=== PATIENT | female | born 2000 | race Caucasian/White ===

== ENCOUNTER 2023-04-29 09:24 | Emergency (ER) | payer BC, SELFPAY ==
[2023-04-29 09:29] VITALS: BP 112/83; PULSE 79; RESP 18; TEMP 36.8; O2SAT 97; BMI 28.3
--- NOTE | 2023-04-29 09:38 | PC.NURSE ---
RAISED RED RASH CIRCUMFERENCE OF MOUTH THAT STARTED 3 DAYS AGO. RASH IS RED AND RAISED. PT STATES TODAY THAT BILATERAL EAR HAVE STARTED ITCHING . PT STATED HAS BEEN USING BENADRYL AND TOPICAL ANT-ITCH CREAM WITH NO RELIEF. PT STATES HAS HAD SIMILAR ISSUES LIKE THIS IN PAST.
--- NOTE | 2023-04-29 09:47 | ED.SKABFB1 ---
HPI - Skin/Abscess/Foreign Bdy General Chief complaint: Skin/Abscess/Foreign Body Stated complaint: RASH Time Seen by Provider: 04/29/23 09:40 Source: patient Mode of arrival: walk-in Limitations: no limitations History of Present Illness HPI narrative: patient is here with a rash involving her lips and area below the lips in the mentum of the chin and low forehead area and now two areas starting in her ears. She says it is extremely itchy and rowe. She's tried antibiotic ointments and other hvub-apj-oisxusp preparations is not getting any better. She is not using a skin care products or topical agents to this area. She does have a nose ring but she's had that in several causing problems. She has no known history of MRSA she's not ill and is not running a fever. Does not have any other rash involving the rest of her trunk torso or extremities. Does not have a lesions inside her mouth. There is no swelling or erythema of the conjunctiva. She is otherwise well and not on any new medications. Related Data Allergies Allergy/AdvReac Type Severity Reaction Status Date / Time No Known Drug Allergies Allergy Verified 04/29/23 09:29 Exam Narrative Exam Narrative: problem focused examination shows mildly erythematous inflammatory response of her upper and lower lip and patchy areas of erythema just below on the mentum of the chin there is no evidence of impetigo or viral exanthems or vesicles. There is no linear streaking. The tragus of the ears has two small areas of erythema but it's not really cellulitic or tender. The rest the trunk torso and skin is completely normal. The oral cavity does not have any lesions or inflammation or symptoms intraorally. Hands are free of any rash. Constitutional Vital Signs, click to edit/add: Last Vital Signs Temp 98.3 F 04/29/23 09:29 Pulse 79 04/29/23 09:29 Resp 18 04/29/23 09:29 BP 112/83 H 04/29/23 09:29 Pulse Ox 97 04/29/23 09:29 O2 Del Method Room Air 04/29/23 09:29 Course Vital Signs Vital signs: Vital Signs Temperature 98.3 F 04/29/23 09:29 Pulse Rate 79 04/29/23 09:29 Respiratory Rate 18 04/29/23 09:29 Blood Pressure 112/83 H 04/29/23 09:29 Pulse Oximetry 97 04/29/23 09:29 Oxygen Delivery Method Room Air 04/29/23 09:29 Temperature 98.3 F 04/29/23 09:29 Pulse Rate 79 04/29/23 09:29 Respiratory Rate 18 04/29/23 09:29 Blood Pressure 112/83 H 04/29/23 09:29 Pulse Oximetry 97 04/29/23 09:29 Oxygen Delivery Method Room Air 04/29/23 09:29 MDM - Skin/Abscess/Foreign Bdy MDM Narrative Medical decision making narrative: this somewhat of a perplexing rash does not appear to be bacterial or viral in etiology. Contact dermatitis would be most likely but she's not used anything that may precipitate that. Nonetheless I am recommending a steroid cream cold compresses and a Medrol pack. She is planning on following up with her primary care doctor Discharge Plan Discharge Chief Complaint: Skin/Abscess/Foreign Body Clinical Impression: Dermatitis Time of Disposition Decision: 09:50 Instructions: Dermatitis (ED) Additional Instructions: cold compresses/Medrol Christian/betamethasone to the skin rash Stand Alone Forms: Portal Instructions Referrals: Lauren Doll MD [Primary Care Provider] - 1 week
== END 2023-04-29 09:58 | disposition home or self-care (01) ==
PROVIDERS: Emergency Provider Emergency Medicine Emergency Medical Services; PCP Family Medicine
DX: L30.9 Dermatitis, unspecified (principal)
CPT/HCPCS: 99283

== ENCOUNTER 2023-07-11 16:25 | Outpatient (RCR) | payer BC, SELFPAY | END 2023-09-05 16:08 | disposition home or self-care (01) | LOC: PT 16:25 | PROVIDERS: PCP Family Medicine; Visit Provider Family Medicine | DX: M25.512 Pain in left shoulder (principal) | CPT/HCPCS: 97110; 97162 ==

== ENCOUNTER 2023-08-12 11:05 | Outpatient (OUT) | payer BC, SELFPAY ==
[2023-08-13 08:12] LABS: HIV Ab/p24 Ag Screen Non Reactive (Non Reactive)
[2023-08-13 10:11] LABS: Rapid Plasma Reagin, Quant Non Reactive titer (NonRea<1:1)
[2023-08-15 19:11] LABS: HBsAg Screen Negative (Negative); HCV Ab Reactive (Non Reactive); Hep A Ab, IgM Negative (Negative); Hep B Core Ab, IgM Positive (Negative)
== END 2023-08-12 11:06 | disposition home or self-care (01) ==
LOC: LAB 11:05
PROVIDERS: PCP Family Medicine; Visit Provider Obstetrics & Gynecology
DX: Z20.2 Contact with and (suspected) exposure to infections with a predominantly sexual mode of transmission (principal)
CPT/HCPCS: 36415; 80074; 86592; 86695; 86696; 87389; 87522

== ENCOUNTER 2023-09-23 21:59 | Emergency (ER) | payer BC, SELFPAY ==
[2023-09-23] VITALS (7 sets, daily range): BP systolic 122; BP diastolic 92; PULSE 89–114; RESP 10–22; TEMP 36.6; O2SAT 96–100; BMI 30.3
--- NOTE | 2023-09-23 22:04 | ECG_ITS ---
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
--- NOTE | 2023-09-23 22:04 | ED.OVERDOSE1 ---
HPI - Overdose General Chief Complaint: Overdose Stated Complaint: OVERDOSE Time Seen by Provider: 09/23/23 22:04 Source: patient and other (EMS) Source comment: . Mode of arrival: ambulance Limitations: no limitations History of Present Illness HPI Narrative: This 23-year-old female with a history of substance abuse is brought emergency Department from home by EMS. EMS was called by the patient's boyfriend after she became unresponsive. The patient was found to have agonal respirations and was given 8 mg of intranasal Narcan with clinical improvement. She had an episode of vomiting prior to arrival. Upon arrival she is awake, alert, admits that she has been using heroin and/or fentanyl. She states that her boyfriend does not know that she is using drugs. She does have a history of substance abuse but states that she has never used fentanyl her heroin in the past. She was formally using methamphetamine. She denies the possibility of . She denies any chest pain or shortness of breath. She states that she is nauseated and having abdominal cramps. She denies that this was a suicide attempt. Related Data Allergies Allergy/AdvReac Type Severity Reaction Status Date / Time No Known Drug Allergies Allergy Verified 04/29/23 09:29 Review of Systems ROS Status of ROS 10 or more systems reviewed and unremarkable except as noted in history and below Exam Narrative Exam Narrative: Nurses note and vital signs reviewed and patient is not hypoxic. She is afebrile, mildly tachycardic with a pulse of 102, she is not hypoxic with pulse ox 96 percent on room air General: , Alert, oriented to being in the hospital, no respiratory distress Skin: Warm, dry, no pallor noted. There is no rash noted. Head: Normocephalic, atraumatic Eye: Normal conjunctiva, no drainage, EOMI. PERRL. Pupils are 4 mm equal and reactive, vision is grossly intact Ears, Nose, Mouth, and Throat: oral mucosa is moist. Cardiovascular: Regular Rate and Rhythm s1S2, no murmurs, rubs or gallops, pulses are brisk and equal bilaterally Respiratory: Patient is in no distress, no accessory muscle use, lungs are clear to auscultation, no wheezing, rales or rhonchi Back: non-tender, no CVA tenderness bilaterally to percussion. GI: Normal bowel sounds, no tenderness to palpation, no masses appreciated. No rebound, guarding, or rigidity noted. Musculoskeletal: The patient has no evidence of calf tenderness, no pitting edema, symmetrical pulses noted bilaterally Neurological: A&O x4, normal speech Psychiatric: Cooperative, denies SI, admits to recent use of heroin or fentanyl Constitutional Vital Signs, click to edit/add: Last Vital Signs Temp 98 F 09/23/23 21:59 Pulse 105 H 09/23/23 22:50 Resp 18 09/23/23 22:50 BP 122/92 H 09/23/23 21:59 Pulse Ox 99 09/23/23 22:50 O2 Del Method Room Air 09/23/23 21:59 Course Vital Signs Vital signs: Vital Signs Temperature 98 F 09/23/23 21:59 Pulse Rate 102 H 09/23/23 21:59 Respiratory Rate 22 09/23/23 21:59 Blood Pressure 122/92 H 09/23/23 21:59 Pulse Oximetry 96 09/23/23 21:59 Oxygen Delivery Method Room Air 09/23/23 21:59 Temperature 98 F 09/23/23 21:59 Pulse Rate 105 H 09/23/23 22:50 Respiratory Rate 18 09/23/23 22:50 Blood Pressure 122/92 H 09/23/23 21:59 Pulse Oximetry 99 09/23/23 22:50 Oxygen Delivery Method Room Air 09/23/23 21:59 MDM - Overdose MDM Narrative Medical decision making narrative: This 23-year-old female is brought to the emergency department after she accidentally overdosed at home. EMS was called after she was found unresponsive by her boyfriend. She had agonal respirations on their arrival and was given 8 mg of Narcan with clinical improvement. She had one episode of vomiting prior to arrival. Upon arrival she was awake, alert, oriented admitted that she had used heroin and/or fentanyl. She states she does not typically use this but has a history of methamphetamine use. EKG done upon arrival was a sinus rhythm at 108 beat per minute. She was given IV fluids and Zofran. Routine labs are reviewed. Her test was negative. She has a normal white count and hemoglobin. She does have a mild elevation in her liver function tests. She is not having any abdominal pain. This may be related to gallbladder issues or history of drug use. She denies that she has never been an IV drug user. She was monitored on the stator tester with no ectopy or hypoxia. She has been monitored for a period of time and has not had any episodes of decreased consciousness. Her family is currently in the room with her. I discussed her plan to stay clean with her and she plans to follow-up with [facility] in [place] where she had established a relationship in the past. She will be discharged with her family and a prescription for Narcan. I encouraged her to try to avoid using narcotics in the future as it is unclear what they have been laced with. She has flatly denied that this was a suicide attempt. She feels comfortable being discharged home with her boyfriend at this time. We did find a box of Narcan and sent it home with the patient to have if she should accidently overdose in the future. Lab Data Labs: Lab Results 09/23/23 Range/Units 22:25 WBC 7.3 (4.0-11.0) 10^3/uL RBC 4.21 (4.20-5.40) 10^6/uL Hgb 13.1 (12.0-16.0) g/dL Hct 38.5 (36.0-48.0) % MCV 91.4 (81.0-99.0) fL MCH 31.1 (26.7-34.0) pg MCHC 34.0 (29.9-35.2) g/dL RDW 12.1 (11.0-15.0) % Plt Count 271 (150-450) 10^3/uL MPV 10.2 (9.5-13.5) fL Neut % (Auto) 47.4 (43.0-75.0) % Lymph % (Auto) 45.9 (20.5-60.0) % [place] % (Auto) 3.7 (1.7-12.0) % Eos % (Auto) 0.8 L (0.9-7.0) % Baso % (Auto) 0.3 (0.2-2.0) % Neut # (Auto) 3.5 (1.4-6.5) 10^3/uL Lymph # (Auto) 3.4 (1.2-3.8) 10^3/uL [place] # (Auto) 0.3 (0.3-0.8) 10^3/uL Eos # (Auto) 0.1 (0.0-0.7) 10^3/uL Baso # (Auto) 0.0 (0.0-0.1) 10^3/uL Abs Immat Gran (auto) 0.14 H (0.00-0.03) 10^3/uL Imm/Tot Granulo (auto) 1.9 H (0.0-0.5) % Sodium 139 (136-145) mmol/L Potassium 3.2 L (3.5-5.1) mmol/L Chloride 102 (98-107) mmol/L Carbon Dioxide 26.7 (21.0-32.0) mmol/L Anion Gap 13.5 BUN 18.0 (7.0-18.0) mg/dL Creatinine 0.89 (0.55-1.02) mg/dL Est GFR ( Amer) >60 (>=60) Est GFR (Non-Af Amer) >60 (>=60) BUN/Creatinine Ratio 20.2 Glucose 137 H (74-106) mg/dL Calcium 8.8 (8.5-10.1) mg/dL Total Bilirubin 0.2 (0.2-1.0) mg/dL AST 126 H (15-37) U/L ALT 155 H (14-59) U/L Alkaline Phosphatase 50 (46-116) U/L Total Protein 7.6 (6.4-8.2) g/dL Albumin 3.8 (3.4-5.0) g/dL Globulin 3.8 g/dL Albumin/Globulin Ratio 1.0 Serum HCG, Qual Negative (NEGATIVE) ECG Data Attestation: I personally reviewed and interpreted this ECG as follows: (Sinus tachycardia at 108 beats for minute, right axis deviation, normal intervals, no acute ST segment elevation or T-wave inversion) Discharge Plan Discharge Chief Complaint: Overdose Clinical Impression: Accidental overdose, Elevated liver function tests Patient Disposition: Home, Self-Care Time of Disposition Decision: 23:41 Condition: Good Instructions: Adult Overdose (ED) Additional Instructions: Please fill your prescription for Narcan and have available for your friends or family to use if he should accidentally overdosed in the future. Follow-up for outpatient detox/drug rehab. Return to the emergency department as needed. Stand Alone Forms: Portal Instructions Referrals: Lauren Doll MD [Primary Care Provider] - 1 week Discharge Date/Time: 09/24/23 00:21
[2023-09-23 22:32] LABS: Basophils Percent Auto 0.3 % (0.2-2.0); Eosinophils Absolute Auto 0.1 10^3/uL (0.0-0.7); Eosinophils Percent Auto 0.8 % (0.9-7.0); Hematocrit 38.5 % (36.0-48.0); Hemoglobin 13.1 g/dL (12.0-16.0); Immature Granulocytes Abs Auto 0.14 10^3/uL (0.00-0.03); Immature Granulocytes Pct Auto 1.9 % (0.0-0.5); Lymphocytes Absolute Auto 3.4 10^3/uL (1.2-3.8); Lymphocytes Percent Auto 45.9 % (20.5-60.0); Mean Corpuscular Hemoglobin 31.1 pg (26.7-34.0); Mean Corpuscular Volume 91.4 fL (81.0-99.0); Mean Platelet Volume 10.2 fL (9.5-13.5); Monocytes Absolute Auto 0.3 10^3/uL (0.3-0.8); Monocytes Percent Auto 3.7 % (1.7-12.0); Neutrophils Absolute Auto 3.5 10^3/uL (1.4-6.5); Neutrophils Percent Auto 47.4 % (43.0-75.0); Platelet Count 271 10^3/uL (150-450); Red Blood Count 4.21 10^6/uL (4.20-5.40); Red Cell Distribution Width 12.1 % (11.0-15.0); White Blood Count 7.3 10^3/uL (4.0-11.0)
[2023-09-23] MEDS: ONDANSETRON PF 4 MG/2 ML VIAL IV (22:33)
[2023-09-23] MEDS: 0.9 % SODIUM CHLORIDE 1,000 ML 500 ML IV (22:33)
[2023-09-23 22:40] LABS: HCG Qualitative NEGATIVE (NEGATIVE)
[2023-09-23 22:45] LABS: Alanine Aminotransferase 155 U/L (14-59); Albumin Level 3.8 g/dL (3.4-5.0); Alkaline Phosphatase 50 U/L (46-116); Anion Gap 13.5; Aspartate Amino Transferase 126 U/L (15-37); BUN Creatinine Ratio 20.2; Bilirubin Total 0.2 mg/dL (0.2-1.0); Calcium 8.8 mg/dL (8.5-10.1); Carbon Dioxide 26.7 mmol/L (21.0-32.0); Chloride 102 mmol/L (98-107); Estimated GFR (African America >60 (>=60); Estimated GFR (Non-African Ame >60 (>=60); Globulin 3.8 g/dL; Glucose 137 mg/dL (74-106); Potassium 3.2 mmol/L (3.5-5.1); Sodium 139 mmol/L (136-145); Total Protein 7.6 g/dL (6.4-8.2)
== END 2023-09-24 00:21 | disposition home or self-care (01) ==
PROVIDERS: Emergency Provider Emergency Medicine; PCP Family Medicine
DX: T40.1X1A Poisoning by heroin, accidental (unintentional), initial encounter (principal); T40.411A Poisoning by fentanyl or fentanyl analogs, accidental (unintentional), initial encounter; R79.89 Other specified abnormal findings of blood chemistry
CPT/HCPCS: 36415; 80053; 80307; 84703; 85025; 93005; 96361; 96374; 99284

== ENCOUNTER 2023-10-28 07:00 | Outpatient (OUT) | payer BC, SELFPAY ==
--- OUTSIDE RECORDS SUMMARY | 2023-10-28 07:06 | XMS_ITS | CCD ---
Author Name Unknown Address [address] [place] [address] [address] [place] [address] Organization [facility] Care Team Providers Care Collar Stay Fuser Tender Name Role Phone PHYSICIAN, DEFAULT Unavailable Unavailable PHYSICIAN, DEFAULT Unavailable Unavailable ALICE, DR LAUREN Sweet Admitting Unavailable JENKINS, DR LAUREN Sweet Attending Unavailable JENKINS, DR LAUREN Sweet Primary Care Unavailable WEST, DR ABDULAZIZ Valdez Consulting Unavailable JENKINS, DR LAUREN Sweet Consulting Unavailable MISC, DR SANCHEZ Primary Care Unavailable MARKER, DR ROSALES Admitting Unavailable MARKER, DR ROSALES Attending Unavailable MARKER, DR ROSALES Consulting Unavailable ISSAC, AYDEE Admitting Unavailable ISSAC, AYDEE Attending Unavailable JENKINS, DR LAUREN Sweet Primary Care Unavailable ERLIN, DR SILVERMAN Admitting Unavailable ERLIN, DR SILVERMAN Attending Unavailable MISC, DR SANCHEZ Primary Care Unavailable ERLIN, DR SILVERMAN Consulting Unavailable ERLIN, DR SILVERMAN Admitting Unavailable ERLIN, DR SILVERMAN Attending Unavailable MISC, DR SANCHEZ Primary Care Unavailable ERLIN, DR SILVERMAN Consulting Unavailable BROWN, ABDULAZIZ Consulting Unavailable Becky Leslie Unavailable Lauren Jenkins Unavailable LAUREN JENKINS Referring Unavailable Allergies Allergy Classification Reported Allergen(s) Allergy Type Date of Onset Reaction(s) Facility (1 source) Amoxicillin Drug Allergy [facility] Repository (9 sources) ceftibuten Drug Allergy [address] [facility] Repository (9 sources) ceftibuten Drug Allergy Unknown [facility] Repository (1 source) Allergies Reconciled Propensity to adverse reactions Unknown [facility] Other (4 sources) Medicinal cephalosporin and acting as antibacterial agent (FN) Drug allergy 0 Unknown [facility] Other Medications Current Medications Medication Drug Class(es) Dates Sig (Normalized) Sig (Original) methylPREDNISolone 4 mg oral tablet (8 sources) Corticosteroid Start: 07-01-2022 take 4 mg by mouth once daily valACYclovir 500 mg oral tablet (1 source) Herpesvirus Nucleoside Analog DNA Polymerase Inhibitor, Herpes Simplex Virus Nucleoside Analog DNA Polymerase Inhibitor, Herpes Zoster Virus Nucleoside Analog DNA Polymerase Inhibitor take 1 tablet by mouth every twenty-four hours Valtrex 500 MG 1 tablet once a day Active 24 hr venlafaxine 37.5 mg extended release oral capsule (6 sources) Serotonin and Norepinephrine Reuptake Inhibitor Venlafaxine HCl ER 37.5 MG TAKE 1 CAPSULE BY MOUTH EVERY DAY WITH FOOD FOR 90 DAYS for 90 Active Completed/Discontinued Medications Medication Drug Class(es) Dates Sig (Normalized) Sig (Original) benzonatate 200 mg oral capsule (1 source) Non-narcotic Antitussive take 1 capsule by mouth every eight hours Benzonatate 200 MG 1 capsule Orally Three times a day Not-Taking tiZANidine 4 mg oral tablet (1 source) Central alpha-2 Adrenergic Agonist take 1 tablet by mouth every eight hours tiZANidine HCl 4 MG 1 tablet as needed Orally Three times a day Not-Taking Problems Active Problems Problem Classification Problem Date Documented Date Episodic/Chronic Allergic reactions (1 source) Allergic contact dermatitis, unspecified cause Episodic Chronic obstructive pulmonary disease and bronchiectasis (2 sources) Bronchitis; Translations: [Bronchitis, not specified as acute or chronic] Episodic Contraceptive and procreative management (4 sources) Initiation of transdermal contraception; Translations: [Encounter for initial prescription of implantable subdermal contraceptive] Episodic Genitourinary symptoms and ill-defined conditions (4 sources) Dysuria; Translations: [Dysuria] Episodic Hepatitis (2 sources) Viral hepatitis C; Translations: [Unspecified viral hepatitis C without hepatic coma] Episodic Inflammatory diseases of female pelvic organs (2 sources) Cervicitis and endocervicitis; Translations: [Inflammatory disease of cervix uteri] Episodic Mood disorders (14 sources) Recurrent major depressive episodes, moderate ; Translations: [Major depressive disorder, recurrent, moderate] Chronic Other complications of (2 sources) High risk ; Translations: [Supervision of high risk , unspecified, third trimester] Episodic Other complications of (2 sources) Other specified related conditions, third trimester; Translations: [Other specified related conditions, third trimester] Episodic Other female genital disorders (4 sources) Unspecified dyspareunia; Translations: [UNSPECIFIED DYSPAREUNIA] Onset: 07-12-2021 Chronic Other female genital disorders (2 sources) Dyspareunia; Translations: [Unspecified dyspareunia] Chronic Other female genital disorders (2 sources) Noninflammatory disorder of the vagina; Translations: [Other specified noninflammatory disorders of vagina] Episodic Other female genital disorders (2 sources) Disorder of female genital organs; Translations: [Unspecified condition associated with female genital organs and menstrual cycle] Episodic Other liver diseases (8 sources) Lesion of liver; Translations: [Liver disease, unspecified] Chronic Other nervous system disorders (7 sources) Chronic pain; Translations: [Other chronic pain] Chronic Other nervous system disorders (1 source) Other chronic pain Chronic Other non-traumatic joint disorders (2 sources) Pain in left shoulder Episodic Other nutritional; endocrine; and metabolic disorders (8 sources) Body mass index 30+ - obesity; Translations: [Body mass index (BMI) 32.0-32.9, adult] Chronic Other nutritional; endocrine; and metabolic disorders (2 sources) Body mass index 25-29 - overweight; Translations: [Body mass index (BMI) 26.0-26.9, adult] Episodic Other and delivery including normal (14 sources) ; Translations: [ state, incidental] Episodic Other screening for suspected conditions (not mental disorders or infectious disease) (10 sources) Thyroid function tests abnormal; Translations: [Abnormal results of thyroid function studies] Episodic Other upper respiratory disease (8 sources) Sinusitis; Translations: [Allergic rhinitis, unspecified] Chronic Other upper respiratory disease (1 source) Allergic rhinitis, unspecified Onset: 07-01-2022 Resolved: 07-01-2022 Chronic Residual codes; unclassified (2 sources) Tobacco user; Translations: [Tobacco use] Episodic Residual codes; unclassified (2 sources) Gestation period, 30 weeks; Translations: [30 weeks gestation of ] Episodic Residual codes; unclassified (2 sources) High risk heterosexual behavior; Translations: [High risk heterosexual behavior] Episodic Spondylosis; intervertebral disc disorders; other back problems (1 source) Spondylosis without myelopathy or radiculopathy, thoracic region; Translations: [SPONDYLS W/O MYELO-/RADICULOP THOR] Onset: 12-14-2021 Chronic Spondylosis; intervertebral disc disorders; other back problems (7 sources) Pain in thoracic spine; Translations: [Pain in thoracic spine] Onset: 12-13-2021 Episodic Substance-related disorders (2 sources) Cannabis abuse; Translations: [Cannabis abuse, uncomplicated] Chronic Thyroid disorders (16 sources) Non-toxic nodular goiter; Translations: [Nontoxic goiter, unspecified] Chronic Unclassified (1 source) Contact with and (suspected) exposure to covid-19; Translations: [Contact with and (suspected) exposure to covid-19] Urinary tract infections (2 sources) Urinary tract infectious disease; Translations: [Urinary tract infection, site not specified] Episodic Past or Other Problems Problem Classification Problem Date Documented Date Episodic/Chronic Administrative/social admission (4 sources) Encounter for examination and observation for other specified reasons; Translations: [ENCNTER EXAM AND OBS OTH REASONS] Onset: 2021 Episodic Hemorrhage during ; abruptio placenta; placenta previa (2 sources) Placenta previa without hemorrhage; Translations: [Low lying placenta NOS or without hemorrhage, unspecified trimester] Resolved: 07-12-2016 Episodic Immunizations and screening for infectious disease (1 source) Encounter for screening for human papillomavirus (HPV); Translations: [ENC SCREENING HUMAN PAPILLOMAVIRUS] Onset: 07-23-2021 Episodic Mycoses (2 sources) Candidiasis; Translations: [Candidiasis, unspecified] Resolved: 11-09-2019 Episodic Other female genital disorders (1 source) Malposition of uterus; Translations: [MALPOSITION OF UTERUS] Onset: 07-26-2021 Episodic Unclassified (1 source) Contact with and (suspected) exposure to covid-19 Z20.822 Onset: 07-01-2022 Resolved: 07-01-2022 Unclassified (7 sources) Exposure to acute respiratory syndrome coronavirus 2; Translations: [Contact with and (suspected) exposure to covid-19] Results Test Name Value Interpretation Reference Range Facility MR SHOULDER LEFT WO IV CONTR Avinash 10-23-2023 MR SHOULDER LEFT WO IV CONTRAST EXAM: MR SHOULDER LEFT WO IV CONTRAST HISTORY: Pain in Left Shoulder TECHNIQUE: Multiplanar multisequence MRI of the shoulder was performed Without contrast. COMPARISON: None available. FINDINGS: The acromioclavicular joint is intact. The acromion is flat. Coracoclavicular ligament intact. No subacromial/subdelto id bursal fluid. The supraspinatus, infraspinatus, subscapularis, and teres minor tendons are intact. No atrophy or fatty infiltration of the rotator cuff musculature. The intra-articular and extra-articular long head biceps tendon is intact. The biceps tendon resides within the bicipital groove. No labral tear identified. No well-defined or measurable cartilage defect. No glenohumeral joint effusion . IMPRESSION: Rotator cuff and labrum are intact. ELECTRONICALLY SIGNED BY: Rick Murillo, DO Normal Not Available COVID Quick Testingon 2021 Result Negative [facility] Other Quick Strepon 07-01-2022 S. pyogenes Org specific cx Ql (Throat) Negative [employer] Other Quick Strep [facility] Other XR TSPINE 3 VIEWSon 12-13-19 22 XR TSPINE 3 VIEWS EXAMINATION: XR TSPINE 3 VIEWS HISTORY: Pain in thoracic spine COMPARISON: No relevant comparison available. FINDINGS: BONES: Normal alignment with no spondylolisthesis. Mild anterior wedging of a midthoracic vertebral body. Mild degenerative spondylosis. DISC SPACES: Normal. No significant disc height narrowing, subluxation, or endplate abnormality. PARASPINOUS: Negative. No paraspinous abnormality is seen. OTHER: Negative. IMPRESSION: Minimal degenerative spondylosis Electronically authenticated by: ABDULAZIZ WATKINS Date: 2021-12-13 10:09 [address] [facility] US PELVIS AND TRANSVAGon US PELVIS AND TRANSVAG EXAM: US PELVIS HISTORY: Dyspareunia COMPARISON: None. TECHNIQUE: Both transabdominal and transvaginal scanning was performed. FINDINGS: Scanning of the pelvis demonstrates uterus to measure 6.8 x 4 x 3.3 cm. Endometrial complex measures 11 mm. Right ovary measures 3.9 x 2.7 x 2 cm. Resistive indexes 0.5. Follicles are noted. Left ovary measures 3.3 x 2 x 1.8 cm. Resistive indexes 0.6. Follicles are noted. No masses are noted. No fluid is noted in the cul-de-sac. Impression: 1. Normal-appearing uterus which is anteverted. 2. Normal ovaries. Electronically authenticated by: ABDULAZIZ FERNANDES Date: 2021-07-12 11:17 Normal [facility] PAP ACOG PANEL 2: 19 to 27on 07-11-2021 . . Normal [facility] Comment on above: Performed By: #### 4 [id number] #### [facility] [address] [place] [address] Dr. Luis Fernando Martinez Age Gdln ACOG Testing 19- [facility] Comment on above: Performed By: #### 4 [id number] #### [facility] [address] [place] [address] Dr. Luis Fernando Martinez DIAGNOSIS: Comment [facility] Comment on above: Result Comment: NEGA TIVE FOR INTRAEPITHELIAL LESION OR MALIGNANCY. Performed By: #### 4 [id number] #### [facility] [address] [place] [address] Dr. Luis Fernando Martinez Methodology: Comment Normal [facility] Comment on above: Result Comment: This liquid based ThinPrep(R) pap test was screened with the use of an image guided system. Performed By: #### 4 [id number] #### [facility] [address] [place] [address] Dr. Luis Fernando Martinez Note: Comment [facility] Comment on above: Result Comment: The Pap smear is a screening test designed to aid in the detection of premalignant and malignant conditions of the uterine cervix. It is not a diagnostic procedure and should not be used as the sole means of detecting cervical cancer. Both false-positive and false-negative reports do occur. . Performed By: #### 4 [id number] #### [facility] [address] [place] [address] Dr. Luis Fernando Martinez Performed by: Comment Normal [facility] Comment on above: Result Comment: Dexter Kimbrough, Oceanology Teacher (ASCP) Performed By: #### 4 [id number] #### [facility] [address] [place] [address] Dr. Luis Fernando Martinez Reflex Criteria: Comment [facility] Comment on above: Result Comment: The HPV DNA reflex criteria were not met with this specimen result therefore, no HPV testing was performed. . Performed By: #### 4 [id number] #### [facility] [address] [address] [address] Luis Fernando Martinez Specimen adequacy: Comment Normal [facility] Comment on above: Result Comment: Sati sfactory for evaluation. Endocervical and/or squamous metaplastic cells (endocervical component) are present. Performed By: #### 4 [id number] #### [facility] [address] [address] [address] Luis Fernando Martinez Coding Summary.on 04-13-2019 Coding Summary. CODING DATE: 04/13/2019 FINAL [facility] STATUS: Home (Routine DC) PAYOR: Medicaid EA DESCRIPTION 0288 DIAGNOSTIC ULTRASOUND EXCEPT OBSTETRICAL AND VASCULAR OF LOWER EXTREMITIES ADMIT DX: REASON FOR VISIT DX: B18.2 Chronic viral hepatitis C FINAL DX: PRINCIPAL: B18.2 Chronic viral hepatitis C SECONDARY: PYMT PROC EAPG STAT DESCRIPTION DOCTOR NAME DATE NOTE: The code number assigned matches the documented diagnosis and / or procedure in the patient's chart. However, the narrative phrase printed from the coding software may appear abbreviated, or result in slightly different terminology. Coded By: Carol Ann Duggan Date Saved: 04/13/2019 08:33 am Normal [facility] Coding Summary.on 03-18-2019 Coding Summary. CODING DATE: 03/18/2019 [facility] STATUS: Home (Routine DC) PAYOR: Medicaid EA DESCRIPTION 0457 VENIPUNCTURE 0405 THERAPEUTIC DRUG MONITORING 0401 LEVEL II CHEMISTRY TESTS ADMIT DX: REASON FOR VISIT DX: B18.2 Chronic viral hepatitis C FINAL DX: PRINCIPAL: B18.2 Chronic viral hepatitis C SECONDARY: PYMT PROC EAPG STAT DESCRIPTION DOCTOR NAME DATE NOTE: The code number assigned matches the documented diagnosis and / or procedure in the patient's chart. However, the narrative phrase printed from the coding software may appear abbreviated, or result in slightly different terminology. Coded By: Neris Lind CphT Date Saved: 03/18/2019 08:30 am Normal [facility] Ethanolon 03-16-2019 Ethanol [Mass/Vol] mg/dL Normal <=7 [facility] Comment on above: Performed By: #### 2 [id number] #### [facility] [address] [place] [address] U Drug Screenon 03-16-2019 Amphetamines Screen method >1000 ng/mL Ql (U) Negative Normal Negative [facility] Comment on above: Result Comment: Nega tive Cutoff: <1000 ng/mL Performed By: #### 2 [id number] #### [facility] [address] [place] [address] Barbiturates Screen Ql (U) Negative Normal Negative [facility] Comment on above: Result Comment: Nega tive Cutoff: <200 ng/mL Performed By: #### 2 [id number] #### [facility] [address] [place] [address] Benzodiazepines Ql (U) Negative Normal Negative [facility] Comment on above: Result Comment: Nega tive Cutoff: <200 ng/mL Performed By: #### 2 [id number] #### [facility] [address] [place] [address] Cocaine Ql (U) Negative Normal Negative [facility] Comment on above: Result Comment: Nega tive Cutoff: <300 ng/mL Performed By: #### 2 [id number] #### [facility] [address] [place] [address] Opiates Screen Ql (U) Negative Normal Negative [facility] Comment on above: Result Comment: Nega tive Cutoff: <300 ng/mL Performed By: #### 2 [id number] #### [facility] [address] [place] [address] Phencyclidine Screen method >25 ng/mL Ql (U) Negative Normal Negative [facility] Comment on above: Result Comment: Nega tive Cutoff: <25 ng/mL These drug screen results are to be used for medical (i.e., treatment) purposes only. Unconfirmed drug screening results must not be used for non-medical purposes (e.g., employment testing, legal testing). Performed By: #### 2 [id number] #### [facility] [address] [place] [address] Tetrahydrocannabinol Screen method >50 ng/mL Ql (U) Negative Normal Negative [facility] Comment on above: Result Comment: Nega tive Cutoff: <50 ng/mL Performed By: #### 2 [id number] #### [facility] [address] [place] [address] Hep Bs Abon 12-23-2018 HBV surface Ab Ql (S) Non Reactive F [facility] Comment on above: Result Comment: Non Reactive: Inconsistent with immunity, less than 10 mIU/mL Reactive: Consistent with immunity, greater than 9.9 mIU/mL Performed at: [address] [id number] PhD Jessy Jones Performed By: #### 2 [id number], [id number], [id number], 5555198, [id number] #### [facility] [address] [place] [address] Hep Bs Agon 12-23-2018 HBV surface Ag IA Ql Negative Negative [facility] Comment on above: Result Comment: Perf ormed at: [facility] [id number] PhD Jessy Jones Performed By: #### 2 [id number], [id number], 0676244, [id number], [id number] #### [facility] [address] [place] [address] Coding Summary.on 12-21-2018 Coding Summary. CODING DATE: 12/21/2018 FINAL [facility] STATUS: Home (Routine DC) PAYOR: Medicaid EA DESCRIPTION 0457 VENIPUNCTURE 0394 LEVEL I IMMUNOLOGY TESTS 0397 LEVEL II MICROBIOLOGY TESTS 0400 LEVEL I CHEMISTRY TESTS 0401 LEVEL II CHEMISTRY TESTS 0403 ORGAN OR DISEASE ORIENTED PANELS 0408 LEVEL I HEMATOLOGY TESTS ADMIT DX: REASON FOR VISIT DX: B18.2 Chronic viral hepatitis C FINAL DX: PRINCIPAL: B18.2 Chronic viral hepatitis C SECONDARY: PYMT PROC EAPG STAT DESCRIPTION DOCTOR NAME DATE NOTE: The code number assigned matches the documented diagnosis and / or procedure in the patient's chart. However, the narrative phrase printed from the coding software may appear abbreviated, or result in slightly different terminology. Coded By: Neris Lind CphT Date Saved: 12/21/2018 11:32 am Normal [facility] Lab Miscellaneouson 12-20-19 19 Status See Ref Lab Report Normal [facility] Comment on above: Performed By: #### 1 [id number] #### [facility] [address] [place] [address] CBC w/Indiceson 12-18-2018 Erythrocyte distribution width (RBC) [Ratio] 13.4 % Normal 10.9-14.2 [facility] Comment on above: Performed By: #### 2 056794, [id number], 6742763, 4774773, 4430338 #### [facility] [address] [place] [address] Hematocrit (Bld) [Volume fraction] 41.5 % Normal 34.0-46.0 [facility] Comment on above: Performed By: #### 2 522958, [id number], 9101562, 6890620, 1995128 #### [facility] [address] [place] [address] Hemoglobin (Bld) [Mass/Vol] 14.1 g/dL Normal 12.0-16.0 [facility] Comment on above: Performed By: #### 2 476863, [id number], 3794709, 9444038, 5313733 #### [facility] [address] [place] [address] MCH (RBC) [Entitic mass] 30.3 pg Normal 27.0-34.0 [facility] Comment on above: Performed By: #### 2 741070, 56778268, 4223642, 6593617, 0720905 #### [facility] [address] [place] [address] MCHC (RBC) [Mass/Vol] 33.9 g/dL Normal 33.3-35.7 [facility] Comment on above: Performed By: #### 2 609575, 57078960, 3228770, 8225263, 8647504 #### [facility] [address] [place] [address] MCV (RBC) [Entitic vol] 89.2 fL Normal 80.0-100.0 F [facility] Comment on above: Performed By: #### 2 937184, 87126513, 7066504, 6515245, 2629179 #### [facility] [address] [place] [address] Platelet mean volume (Bld) [Entitic vol] 8.5 fL Normal 6.4-10.8 [facility] Comment on above: Performed By: #### 2 402755, 77686365, 5059808, 0883405, 5962906 #### [facility] [address] [place] [address] Platelets (Bld) [#/Vol] 254.0 E9/L Normal 150.0-500.0 [facility] Comment on above: Performed By: #### 2 676483, 18036911, 5681782, 8457063, 6180629 #### [facility] [address] [place] [address] RBC (Bld) [#/Vol] 4.6 E12/L Normal 4.3-5.9 [facility] Comment on above: Performed By: #### 2 790018, [id number], 3800684, 2722488, 4954812 #### [facility] [address] [place] [address] WBC corrected for nucl RBC Auto (Bld) [#/Vol] 4.5 E9/L Normal 4.0-11.0 [facility] Comment on above: Performed By: #### 2 631253, 59805615, 8440480, 2745260, 4663766 #### [facility] [address] [place] [address] 288[address] CMPon 12-18-2018 Albumin [Mass/Vol] 1.1 g/dL Normal 1.1-2.2 [facility] Comment on above: Performed By: #### 2 130340, 01466825, 5492732, 5337901, 3559613 #### [facility] [address] [place] [address] Albumin [Mass/Vol] 4.3 g/dL Normal 3.3-5.0 [facility] Comment on above: Performed By: #### 2 047328, 37064498, 6379749, 0093189, 0756009 #### [facility] [address] [place] [address] ALP [Catalytic activity/Vol] 61 Int._Unit/L Normal 21-98 [facility] Comment on above: Performed By: #### 2 860607, 64763194, 8266333, 8287428, 2340802 #### [facility] [address] [place] [address] ALT No additional P-5'-P [Catalytic activity/Vol] 22 Int._Unit/L Normal 6-46 [facility] Comment on above: Performed By: #### 2 616994, 74646789, 2000481, 6020066, 1840976 #### [facility] [address] [place] [address] Anion gap [Moles/Vol] 12 mmol/L Normal 6-16 [facility] Comment on above: Performed By: #### 2 337729, 31249156, 3119534, 9280094, 6256806 #### [facility] [address] [place] [address] AST [Catalytic activity/Vol] 25 Int._Unit/L Normal 5-43 [facility] Comment on above: Performed By: #### 2 544070, 95111864, 1571648, 8505114, 0894900 #### [facility] [address] [place] [address] Bilirubin [Mass/Vol] 0.6 mg/dL Normal 0.0-1.1 [facility] Comment on above: Performed By: #### 2 358954, [id number], [id number], [id number], [id number] #### [facility] [address] [place] [address] Calcium [Mass/Vol] 9.4 mg/dL Normal 8.9-11.1 [facility] Comment on above: Performed By: #### 2 [id number], [id number], 2747530, 8257726, [id number] #### [facility] [address] [place] [address] Chloride [Moles/Vol] 104 mmol/L Normal 101-111 [facility] Comment on above: Performed By: #### 2 [id number], [id number], 8724021, 4678332, [id number] #### [facility] [address] [place] [address] CO2 [Moles/Vol] 25 mmol/L Normal 21-31 [facility] Comment on above: Performed By: #### 2 797482, [id number], 7764344, 9693591, 7909977 #### [facility] [address] [place] [address] Creatinine [Mass/Vol] 0.7 mg/dL Normal 0.5-1.3 [facility] Comment on above: Performed By: #### 2 537380, [id number], 2018614, 4331911, 7534719 #### [facility] [address] [place] [address] Globulin (S) [Mass/Vol] 3.9 g/dL Normal 1.4-4.0 [facility] Comment on above: Performed By: #### 2 853243, [id number], 2254305, 3812621, 5467096 #### [facility] [address] [place] [address] Glucose [Mass/Vol] 94 mg/dL Normal 55-199 [facility] Comment on above: Result Comment: If t his glucose result represents a fasting glucose, interpretation should refer to the following reference range: 55-99 mg/dL Performed By: #### 2 870884, 50318003, 8726745, 3884244, 9400108 #### [facility] [address] [place] [address] Potassium [Moles/Vol] 3.9 mmol/L Normal 3.5-5.3 [facility] Comment on above: Performed By: #### 2 477610, [id number], 2798611, 5643125, 8874332 #### [facility] [address] [place] [address] Protein [Mass/Vol] 8.2 g/dL High 6.0-7.8 [facility] Comment on above: Performed By: #### 2 347312, [id number], 0196232, 8333315, 3486935 #### [facility] [address] [place] [address] Sodium [Moles/Vol] 137 mmol/L Normal 135-145 [facility] Comment on above: Performed By: #### 2 379718, 26940278, 5568589, 4945445, 1689108 #### [facility] [address] [place] [address] Urea nitrogen [Mass/Vol] 16 mg/dL Normal 5-21 [facility] Comment on above: Performed By: #### 2 045836, 83929949, 4527380, 7624857, 6561797 #### [facility] [address] [place] [address] Urea nitrogen/Creatinine [Mass ratio] 23 No Units High 10-20 [facility] Comment on above: Performed By: #### 2 106275, [id number], 5206582, 4309867, 4424477 #### [facility] [address] [place] [address] Lab Miscellaneouson 12-19-19 19 Test Name HAV AB [facility] Comment on above: Performed By: #### 1 [id number] #### [facility] [address] [place] [address] U Drug Screenon 12-18-2018 Amphetamines Screen method >1000 ng/mL Ql (U) Negative Normal Negative [facility] Comment on above: Result Comment: Nega tive Cutoff: <1000 ng/mL Performed By: #### 2 [id number] #### [facility] [address] [place] [address] Barbiturates Screen Ql (U) Negative Normal Negative [facility] Comment on above: Result Comment: Nega tive Cutoff: <200 ng/mL Performed By: #### 2 547475 #### [facility] [address] [place] [address] Benzodiazepines Ql (U) Negative Normal Negative [facility] Comment on above: Result Comment: Nega tive Cutoff: <200 ng/mL Performed By: #### 2 154440 #### [facility] [address] [place] [address] Cocaine Ql (U) Negative Normal Negative [facility] Comment on above: Result Comment: Nega tive Cutoff: <300 ng/mL Performed By: #### 2 948913 #### [facility] [address] [place] [address] Opiates Screen Ql (U) Negative Normal Negative [facility] Comment on above: Result Comment: Nega tive Cutoff: <300 ng/mL Performed By: #### 2 350019 #### [facility] [address] [place] [address] Phencyclidine Screen method >25 ng/mL Ql (U) Negative Normal Negative [facility] Comment on above: Result Comment: Nega tive Cutoff: <25 ng/mL These drug screen results are to be used for medical (i.e., treatment) purposes only. Unconfirmed drug screening results must not be used for non-medical purposes (e.g., employment testing, legal testing). Performed By: #### 2 [id number] #### [facility] [address] [place] [address] Tetrahydrocannabinol Screen method >50 ng/mL Ql (U) Negative Normal Negative [facility] Comment on above: Result Comment: Nega tive Cutoff: <50 ng/mL Performed By: #### 2 699283 #### [facility] [address] [place] [address] eGFRon 12-18-2018 GFR/1.73 sq M predicted among blacks MDRD (S/P/Bld) [Vol rate/Area] mL/min/{1.73_m2} Normal >=59 [facility] Comment on above: Order Comment: Order added by Discern Expert. Result Comment: eGFR is race adjusted. AA=. Performed By: #### 2 757643, [id number], 2735409, 4201582, 1702548 #### [facility] [address] [place] [address] GFR/1.73 sq M predicted among non-blacks MDRD (S/P/Bld) [Vol rate/Area] mL/min/{1.73_m2} Normal >=59 [facility] Comment on above: Order Comment: Order added by Discern Expert. Result Comment: Sensor Operator oxana kidney disease could be indicated at eGFR's of less than 60 mL/min/1.73m2. Kidney failure is indicated at less than 15 mL/min/1.73m2. Performed By: #### 2 321926, 11352929, 0573057, 5355634, [id number] #### [facility] [address] [place] [address] Vital Signs Date Time Vital Sign Value Performing Clinician Facility 10-03-2023 11:15-0500 Body height 154.94 cm Lauren Jenkins Other [facility] 10-03-2023 11:15-0500 Body mass index (BMI) [Ratio] 30.23 kg/m2 Lauren Jenkisn Other [facility] 10-03-2023 11:15-0500 Body weight 72.58 kg Lauren Jenkins Other [facility] 10-03-2023 11:15-0500 Diastolic blood pressure 61 mm[Hg] Lauren Jenkins Other [facility] 10-03-2023 11:15-0500 Systolic blood pressure 99 mm[Hg] Lauren Jenkins Other [facility] 07-04-2023 08:45-0400 Body height 154.94 cm Lauren Jenkins Other [facility] 07-04-2023 08:45-0400 Body mass index (BMI) [Ratio] 28.6 kg/m2 Lauren Jenkins Other [facility] 07-04-2023 08:45-0400 Body weight 68.68 kg Lauren Jenkins Other [facility] 07-04-2023 08:45-0400 Diastolic blood pressure 85 mm[Hg] Lauren Jenkins Other [facility] 07-04-2023 08:45-0400 Respiratory rate 12 /min Lauren Jenikns Other [facility] 07-04-2023 08:45-0400 Systolic blood pressure 126 mm[Hg] Lauren Jenkins Other [facility] 05-26-2023 11:45-0400 Body height 154.94 cm Lauren Jenkins Other [facility] 05-26-2023 11:45-0400 Body mass index (BMI) [Ratio] 28.72 kg/m2 Lauren Jenkins Other [facility] 05-26-2023 11:45-0400 Body weight 68.95 kg Lauren Jenkins Other [facility] 05-26-2023 11:45-0400 Diastolic blood pressure 66 mm[Hg] Lauren Jenkins Other [facility] Other 05-26-2023 11:45-0400 Systolic blood pressure 103 mm[Hg] Lauren Jenkins Other [facility] 04-30-2023 10:45-0400 Body height 154.94 cm Lauren Jenkins Other [facility] 04-30-2023 10:45-0400 Body mass index (BMI) [Ratio] 27.55 kg/m2 Lauren Jenkins Other [facility] 04-30-2023 10:45-0400 Body weight 66.13 kg Lauren Jenkins Other [facility] 04-30-2023 10:45-0400 Diastolic blood pressure 79 mm[Hg] Lauren Jenkins Other [facility] 04-30-2023 10:45-0400 Systolic blood pressure 112 mm[Hg] Lauren Jenkins Other [facility] 04-25-2023 11:30-0400 Body height 154.94 cm Lauren Jenkins Other [facility] 04-25-2023 11:30-0400 Body mass index (BMI) [Ratio] 27.58 kg/m2 Lauren Jenkins Other [facility] 04-25-2023 11:30-0400 Body weight 66.23 kg Lauren Jenkins Other [facility] 04-25-2023 11:30-0400 Diastolic blood pressure 72 mm[Hg] Lauren Jenkins Other [facility] 04-25-2023 11:30-0400 Systolic blood pressure 105 mm[Hg] Lauren Jenkins Other [facility] 11-13-2022 11:30-0500 Body height 154.94 cm Lauren Jenkins Other [facility] 11-13-2022 11:30-0500 Body mass index (BMI) [Ratio] 28.53 kg/m2 Lauren Jenkins Other [facility] 11-13-2022 11:30-0500 Body weight 68.49 kg Lauren Jenkins Other [facility] 11-13-2022 11:30-0500 Diastolic blood pressure 62 mm[Hg] Lauren Jenkins Other [facility] 11-13-2022 11:30-0500 SaO2% (BldA) [Mass fraction] 97 % Lauren Jenkins Other [facility] 11-13-2022 11:30-0500 Systolic blood pressure 108 mm[Hg] Lauren Jenkins Other [facility] 07-01-2022 10:35-0400 Body height 154.94 cm Becky Leslie Other [facility] 07-01-2022 10:35-0400 Body mass index (BMI) [Ratio] 25.51 kg/m2 Becky Leslie Other [facility] 07-01-2022 10:35-0400 Body temperature 97.3 [degF] Becky Leslie Other [facility] Other 07-01-2022 10:35-0400 Body weight 61.24 kg Becky Leslie Other [facility] Other 07-01-2022 10:35-0400 Respiratory rate 18 /min Becky Leslie Other [facility] Other 07-01-2022 10:35-0400 SaO2% (BldA) [Mass fraction] 99 % Becky Leslie Other [facility] Other Encounters Encounter Date Encounter Type Care Provider Facility Start: 10-23-2023 End: 10-24-2023 ambulatory LAUREN JENKINS Not Available Start: 10-03-2023 End: 10-03-2023 ambulatory Lauren Jenkins Other [facility] Start: 10-03-2023 Office outpatient vi sit 15 minutes Lauren Jenkins [facility] Start: 07-04-2023 End: 07-04-2023 ambulatory Lauren Jenkins Other [facility] Start: 07-04-2023 Office outpatient vi sit 15 minutes Lauren Jenkins [facility] Start: 05-26-2023 End: 05-26-2023 ambulatory Lauren Jenkins Other [facility] Start: 05-26-2023 Office outpatient vi sit 15 minutes Lauren Jenkins [facility] Start: 05-19-2023 End: 05-19-2023 ambulatory Lauren Jenkins Other [facility] Start: 05-19-2023 Telephone encounter Lauren Jenkins [facility] Start: 04-30-2023 End: 04-30-2023 ambulatory Lauren Jenkins Other [facility] Start: 04-30-2023 Office outpatient vi sit 15 minutes Lauren Jenkins [facility] Start: 04-25-2023 End: 04-25-2023 ambulatory Lauren Jenkins Other [facility] Start: 04-25-2023 Office outpatient vi sit 15 minutes Lauren Jenkins [facility] Start: 11-13-2022 End: 11-13-2022 ambulatory Lauren Jenkins Other [facility] Start: 11-13-2022 Office outpatient vi sit 15 minutes Lauren Jenkins [facility] Start: 07-08-2022 Gynecological examination normal Lauren Jenkins Other [facility] Start: 07-01-2022 End: 07-01-2022 ambulatory Becky Leslie Other [facility] Start: 07-01-2022 Office outpatient vi sit 25 minutes Becky Leslie [facility] Start: 04-05-2022 ambulatory AYDEE DAVENPORT Facility :[facility] Start: 12-13-2021 End: 12-14-[address] LAUREN JENKINS Facility:[facility] Start: 07-23-2021 Encounter for gynecological examination (general) (routine) without abnormal findings DR HERRERA KERN [facility] Start: 07-12-2021 End: 07-13-[address] HERRERA KERN Facility:[facility] Start: 07-09-2021 End: 07-09-[address] HERRERA KERN Facility:[facility] Start: 07-09-2021 End: 07-09-2021 Encounter for gynecological examination (general) (routine) without abnormal findings DR HERRERA KERN Facility:[facility] Start: 2021 End: [address] DOCTOR MORENO Facility:[facility] Start: 03-26-2018 End: 03-27-2018 Ambulatory DEFAULT PHYSICIAN Facility:[facility] Procedures Date Procedure Procedure Detail Performing Clinician screening Lauren marquez Other Diabetes mellitus screening Lauren Jenkins Other visit Lauren Jenkins Other Payers Date Payer Category Payer [facility] [id number] 1998 Unknown [id number] 2.16.84 [id number] 1998 Unknown [id number] 2.16.84 [id number] 1998 Unknown [id number] 2.16.84 [id number] 1998 Unknown [id number] 2.16.84 [id number] 1998 Unknown [id number] 2.16.84 [id number] 1998 Unknown [id number] [id number] 1959 Unknown [id number] 1959 Unknown [id number] 1959 Unknown [id number] 1959 Unknown [id number] Unknown Social History Date Type Detail Facility Unknown if ever smoked [facility] Other Sex Assigned At Sex Assigned At Bir th [facility] Other Clinical Notes 07-01-2022 to 10-03-2023 Note Date & Type Note Facility 10-03-2023 Evaluation note Encounter Date Diagnosis Assessment Notes Sep, Acute pain of left shoulder (ICD-10 - M25.512) Pt did complete PT earlier in 2022 with [facility] PT. She would like to check MRI. Pt has not seen Dr. Castro since PT. Will followup accordingly based on MRI results. MRI Order will be faxed to [facility]. [facility] Other 09-15-2023 Evaluation note* Encounter Date Diagnosis Assessment Notes Treatment Notes Treatment Clinical Notes Jun, Acute pain of left shoulder (ICD-10 - M25.512) Order printed for PT. Continue OTC NSAIDs as needed. Discussed appropriate dosing. 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 More energy. Got a job, not staying in as much. States she notes she is at a good level. Rx sent fro 90 days last week. Continue effexor at present dose. 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 Denies dyspnea or swelling in oropharynx. Agrees to dispatcher relay for testing to narrow down possible cause. [facility] Other 01-25-2023 Evaluation note* Encounter Date Diagnosis Assessment Notes Treatment Notes Treatment Clinical Notes Oct, Other chronic pain (ICD-10 - G89.29) Oct, Pain in thoracic spine (ICD-10 - M54.6) Symptoms present since November 2021. Patient completed physical therapy last year. Patient was referred to pain management after that. Her symptoms had improved so she did not accept the referral. An MRI was ordered but it was denied by her insurance. She continues to note pain and states her left side in the upper extremity is weaker. Patient agrees to Ortho referral for further testing. [facility] Other 09-12-2022 Evaluation note* Encounter Date Diagnosis Assessment Notes Treatment Notes Treatment Clinical Notes Jun, Contact with and (suspected) exposure to covid-19 (ICD-10 - Z20.822) Today test was performed in office. Results are currently negative. That does not mean that you will not develop COVID or do not currently have a low viral count of COVID. The rapid test works best if symptoms have been over 72 hours and the results can vary if you are asymptomatic There is a higher chance of false negative results to occur if testing is performed too soon. It is recommended that even if results are negative and you have been exposed to someone that has COVID that you follow current CDC recommendations. These can be found at CDC.GOV. Follow up with primary care provider if symptoms persist or do not improve *VIRAL URI HANOUT GIVEN ON OTC TREATMENTS, FOLLOW UP AND WHEN TO SEEK EMERGENCY TREATMENT Jun, Allergic sinusitis (ICD-10 - J30.9) Take medication as directed. Use saline nasal spray may help with symptom relief. Follow up with primary care provider if symptoms persist as a therapy plan may need to be made. [facility] Other Evaluation noteNortLBE Security Master Other History general Narrative - Reported* Type Description Date Medical History thyroid yst Medical History goiter Medical History bipolar Medical History hepatitis C Hospitalization History [facility] Other History general Narrative - Reported* Type Description Date Medical History thyroid yst Medical History goiter Medical History bipolar Medical History hepatitis C Surgical History LIVER BIOPSY 2019 Hospitalization History [facility] Other History general Narrative - ReportedNortLBE Security Master Other Summary Purpose Family History No Family History Records FoundNo Family History Records FoundNo Family History Records FoundNo Family History Records Found Advance Directives No Advanced Directives Records FoundNo Advanced Directives Records FoundNo Advanced Directives Records FoundNo Advanced Directives Records Found Reason for Referral Reason *FU 05/07 ER visit yesterday and OV today - allergic reaction on face/lips - no known cause. Diagnosis 1 Allergic contact ha matitis, unspecified trigger (L23.9) Referral Organization Pending sale to [facility] Referring Provider First Name Lauren Referring Provider Last Name Alice Referring Provider Specialty Family [facility] Referred Organization [facility] Referred Provider Adam Stiles Referred Address ,[place], [place],[address] Referred Provider Specialty Allergy/Immu nology Referral Priority Routine General Notes Noreen Zamora 02:17:19 PM >received today Noreen Zamora 04/30/2023 02:18:00 PM >notes locked, ins attached, referrl faxed Reason 12/12/22 [facility] off ice - OV, PT report, and Xray will be scanned into [facility]. Diagnosis 1 Pain in thoracic spi ne (M54.6) Referral Organization Pending sale to [facility] Referring Provider First Name Lauren Referring Provider Last Name Alice Referring Provider Specialty [facility] Referred Organization [facility] Referred Provider Matthew,James Referred Address ,[place], [place],[address] Referred Provider Specialty Orthopedic S urgery Referral Priority Routine Referral Appointment Date 2022-12-12 General Notes Noreen Zamora 11:46:34 AM >received today Noreen Zamora 11/13/2022 03:31:08 PM >reports attached, along with insurance card, notes locked and faxed P2P Noreen Zamora 11/20/2022 08:44:29 AM >faxed first attempt letter Noreen Zamora 11/20/2022 03:37:10 PM >referral received, but pt has not been scheduled Noreen Zamora 11/21/2022 10:24:17 AM >received fax that referral was recieved, but pt is not scheduled. will follow up Noreen Zamora 11/27/2022 08:56:21 AM >faxed second attempt letter Noreen Zamora 11/28/2022 10:54:57 AM >received fax with appt date Noreen Zamora 12/17/2022 12:15:12 PM >faxed first request for consult notes Noreen Zamora 12/18/2022 01:18:04 PM >received fax that report is not signed yet Additional Source Comments INFORMATION SOURCE (unrecogn ized section and content) DATE CREATED AUTHOR 04/07/[address] [facility] DATE CREATED AUTHOR AUTHOR'S ORGANIZ ATION 12/15/2019 [facility] DATE CREATED AUTHOR AUTHOR'S ORGANIZ ATION 04/03/2022 [facility] DATE CREATED AUTHOR AUTHOR'S ORGANIZ ATION 10/27/2023 [facility] EPIC REASON FOR VISIT (unrecogniz ed section and content) SILVER ESCAPE, COUGH, CONGES TION, SORE THRAOT, SINUSshoulder painRASHrefill1 month Follow upShoulder Painleft shoulder pain FOR RECORDS PERTAINING TO PATIENTS WHO ARE OR HAVE BEEN ENROLLED IN A CHEMICAL DEPENDENCY/SUBSTANCEABUSE PROGRAM, SOME INFORMATION MAY BE OMITTED. This clinical summary was aggregated from multiple sources. Caution should be exercised in using it in the provision of clinical care. This summary normalizes information from multiple sources, and as a consequence, information in this document may materially change the coding, format and clinical context of patient data. In addition, data may be omitted in some cases. CLINICAL DECISIONS SHOULD BE BASED ON THE PRIMARY CLINICAL RECORDS. [facility] [employer] [facility]. provides no warranty or guarantee of the accuracy or completeness of information in this document.
[2023-10-28 07:24] LABS: Basophils Percent Auto 0.4 % (0.2-2.0); Eosinophils Absolute Auto 0.1 10^3/uL (0.0-0.7); Eosinophils Percent Auto 1.9 % (0.9-7.0); Hematocrit 40.4 % (36.0-48.0); Hemoglobin 13.3 g/dL (12.0-16.0); Immature Granulocytes Abs Auto 0.01 10^3/uL (0.00-0.03); Immature Granulocytes Pct Auto 0.2 % (0.0-0.5); Lymphocytes Absolute Auto 2.8 10^3/uL (1.2-3.8); Lymphocytes Percent Auto 52.5 % (20.5-60.0); Mean Corpuscular HGB Conc 32.9 g/dL (29.9-35.2); Mean Corpuscular Hemoglobin 30.3 pg (26.7-34.0); Mean Platelet Volume 10.2 fL (9.5-13.5); Monocytes Absolute Auto 0.3 10^3/uL (0.3-0.8); Monocytes Percent Auto 5.5 % (1.7-12.0); Neutrophils Absolute Auto 2.1 10^3/uL (1.4-6.5); Neutrophils Percent Auto 39.5 % (43.0-75.0); Platelet Count 270 10^3/uL (150-450); Red Blood Count 4.39 10^6/uL (4.20-5.40); Red Cell Distribution Width 12.2 % (11.0-15.0); White Blood Count 5.3 10^3/uL (4.0-11.0)
[2023-10-28 09:43] LABS: Alanine Aminotransferase 19 U/L (14-59); Alkaline Phosphatase 67 U/L (46-116); Aspartate Amino Transferase 14 U/L (15-37); BUN Creatinine Ratio 17.6; Bilirubin Total 0.5 mg/dL (0.2-1.0); Calcium 8.9 mg/dL (8.5-10.1); Carbon Dioxide 28.1 mmol/L (21.0-32.0); Chloride 103 mmol/L (98-107); Estimated GFR (African America >60 (>=60); Estimated GFR (Non-African Ame >60 (>=60); Globulin 3.9 g/dL; Glucose 78 mg/dL (74-106); Potassium 4.1 mmol/L (3.5-5.1); Sodium 137 mmol/L (136-145); Thyroid Stimulating Hormone <0.007 uIU/mL (0.358-3.740); Total Protein 7.9 g/dL (6.4-8.2)
== END 2023-10-28 07:01 | disposition home or self-care (01) ==
LOC: LAB 07:03
PROVIDERS: PCP Family Medicine; Visit Provider Nurse Practitioner Family
DX: F11.20 Opioid dependence, uncomplicated (principal); F12.20 Cannabis dependence, uncomplicated; F41.1 Generalized anxiety disorder; F33.2 Major depressive disorder, recurrent severe without psychotic features; F43.10 Post-traumatic stress disorder, unspecified
CPT/HCPCS: 36415; 80053; 84443; 85025

== ENCOUNTER 2023-11-06 12:48 | Outpatient (OUT) | payer BC, SELFPAY ==
--- OUTSIDE RECORDS SUMMARY | 2023-11-06 12:53 | XMS_ITS | CCD ---
Author Name Unknown Address [address] [place] [address] [address] [place] [id number] Organization [facility] Care Team Providers Care Database Report Writer Name Role Phone PHYSICIAN, DEFAULT Unavailable Unavailable [...] Facility (1 source) Amoxicillin Drug Allergy [facility] Repository (9 sources) ceftibuten Drug Allergy 3 Unknown [facility] (9 sources) ceftibuten Drug Allergy Unknown [facility] (1 source) Allergies Reconciled Propensity to adverse reactions Unknown [facility] Other (4 sources) Medicinal cephalosporin and acting as antibacterial agent (FN) Drug allergy 0 Unknown [facility] Other Medications Current Medications Medication Drug Class(es) [...] Facility MR SHOULDER LEFT WO IV CONTR Aviansh 10-23-2023 MR SHOULDER LEFT WO IV CONTRAST [...] Available COVID Quick Testingon 2021 Result Negative [facility] Other Quick Strepon 07-01-2022 S. pyogenes Org specific cx Ql (Throat) Negative [email or web address] Other Quick Strep [facility] Other XR TSPINE 3 VIEWSon 12-13-19 22 [...] ABDULAZIZ WATKINS Date: 2021-12-13 10:09 Normal [facility] US PELVIS AND TRANSVAGon US PELVIS AND [...] by: ABDULAZIZ FERNANDES Date: 2021-07-12 11:17 Normal [facility] PAP ACOG PANEL 2: 21 to 29on 07-11-2021 . . Normal [facility] Comment on above: Performed By: #### 4 [id number] #### [facility] [address] [place] [address] Dr. Luis Fernando Martinez Age Gdln ACOG Testing 19- Normal [facility] Comment on above: Performed By: #### 4 [id number] #### [facility] [address] [address] [address] Luis Fernando Martinez DIAGNOSIS: Comment [facility] Comment on above: Result Comment: NEGA TIVE FOR INTRAEPITHELIAL LESION OR MALIGNANCY. Performed By: #### 4 [id number] #### [facility] [address] [place] [address] Dr. Luis Fernando Martinez Methodology: Comment Normal [facility] Comment on above: Result Comment: This liquid based ThinPrep(R) pap test was screened with the use of an image guided system. Performed By: #### 4 [id number] #### [facility] [address] [place] [address] Dr. Luis Fernando Martinez Note: Comment [facility] Comment on above: Result Comment: The Pap smear is a screening test designed to aid in the detection of premalignant and malignant conditions of the uterine cervix. It is not a diagnostic procedure and should not be used as the sole means of detecting cervical cancer. Both false-positive and false-negative reports do occur. . Performed By: #### 4 [id number] #### [facility] [address] [place] [address] Dr. Luis Fernando Martienz Performed by: Comment Normal [facility] Comment on above: Result Comment: Dexter Kimbrough, Campus Administrative Assistant (ASCP) Performed By: #### 4 [id number] #### [facility] [address] [place] [address] Dr. Luis Fernando Martinez Reflex Criteria: Comment [facility] Comment on above: Result Comment: The HPV DNA reflex criteria were not met with this specimen result therefore, no HPV testing was performed. . Performed By: #### 4 [id number] #### [facility] [address] [address] [address] Luis Fernando Martinez Specimen adequacy: Comment Normal [facility] Comment on above: Result Comment: Sati sfactory for evaluation. Endocervical and/or squamous metaplastic cells (endocervical component) are present. Performed By: #### 4 [id number] #### [facility] [address] [address] [address] Luis Fernando Martinez Coding Summary.on 04-13-2019 Coding Summary. CODING DATE: 04/13/2019 FINAL [facility] STATUS: Home (Routine DC) PAYOR: Medicaid EAPG DESCRIPTION 0288 DIAGNOSTIC ULTRASOUND EXCEPT OBSTETRICAL AND [...] Duggan Date Saved: 04/13/2019 08:33 am Normal [facility] Coding Summary.on 03-18-2019 Coding Summary. CODING DATE: 03/18/2019 [facility] STATUS: Home (Routine DC) PAYOR: Medicaid [...] CphT Date Saved: 03/18/2019 08:30 am Normal [facility] Ethanolon 03-16-2019 Ethanol [Mass/Vol] mg/dL Normal <=7 [facility] Comment on above: Performed By: #### 2 [id number] #### [facility] [address] [place] [address] U Drug Screenon 03-16-2019 Amphetamines Screen method >1000 ng/mL Ql (U) Negative Normal Negative [facility] Comment on above: Result Comment: Nega tive Cutoff: <1000 ng/mL Performed By: #### 2 [id number] #### [facility] [address] [place] [address] Barbiturates Screen Ql (U) Negative Normal Negative [facility] Comment on above: Result Comment: Nega tive Cutoff: <200 ng/mL Performed By: #### 2 [id number] #### [facility] [address] [place] [address] Benzodiazepines Ql (U) Negative Normal Negative [facility] Comment on above: Result Comment: Nega tive Cutoff: <200 ng/mL Performed By: #### 2 [id number] #### [facility] [address] [place] [address] Cocaine Ql (U) Negative Normal Negative [facility] Comment on above: Result Comment: Nega tive Cutoff: <300 ng/mL Performed By: #### 2 [id number] #### [facility] [address] [place] [address] Opiates Screen Ql (U) Negative Normal Negative [facility] Comment on above: Result Comment: Nega tive Cutoff: <300 ng/mL Performed By: #### 2 [id number] #### [facility] [address] [place] [address] Phencyclidine Screen method >25 ng/mL Ql (U) Negative Normal Negative [facility] Comment on above: Result Comment: Nega tive Cutoff: <25 ng/mL These drug screen results are to be used for medical (i.e., treatment) purposes only. Unconfirmed drug screening results must not be used for non-medical purposes (e.g., employment testing, legal testing). Performed By: #### 2 [id number] #### [facility] [address] [place] [address] Tetrahydrocannabinol Screen method >50 ng/mL Ql (U) Negative Normal Negative [facility] Comment on above: Result Comment: Nega tive Cutoff: <50 ng/mL Performed By: #### 2 246525 #### [facility] [address] [place] [address] Hep Bs Abon 12-23-2018 HBV surface Ab Ql (S) Non Reactive F [facility] Comment on above: Result Comment: Non Reactive: Inconsistent with immunity, less than 10 mIU/mL Reactive: Consistent with immunity, greater than 9.9 mIU/mL Performed at: [address] [id number] PhD Jessy Jones Performed By: #### 2 594493, [id number], 9454677, 8265825, 9276176 #### [facility] [address] [place] [address] Hep Bs Agon 12-23-2018 HBV surface Ag IA Ql Negative Negative [facility] Comment on above: Result Comment: Perf ormed at: [address] [id number] PhD Jessy Jones Performed By: #### 2 573280, [id number], 0654871, 0975431, 9096135 #### [facility] [address] [place] [address] Coding Summary.on 12-21-2018 Coding Summary. CODING DATE: 12/21/2018 FINAL [facility] STATUS: Home (Routine DC) PAYOR: Medicaid [...] CphT Date Saved: 12/21/2018 11:32 am Normal [facility] Lab Miscellaneouson 12-20-19 19 Status See Ref Lab Report Normal [facility] Comment on above: Performed By: #### 1 [id number] #### [facility] [address] [place] [address] CBC w/Indiceson 12-18-2018 Erythrocyte distribution width (RBC) [Ratio] 13.4 % Normal 10.9-14.2 [facility] Comment on above: Performed By: #### 2 499131, 72009446, 0649973, 4234494, 0612409 #### [facility] [address] [place] [address] Hematocrit (Bld) [Volume fraction] 41.5 % Normal 34.0-46.0 [facility] Comment on above: Performed By: #### 2 128633, [id number], 4066651, 9151300, 4972516 #### [facility] [address] [place] [address] Hemoglobin (Bld) [Mass/Vol] 14.1 g/dL Normal 12.0-16.0 [facility] Comment on above: Performed By: #### 2 420781, 44247071, 5588511, 9810563, 0328687 #### [facility] [address] [place] [address] MCH (RBC) [Entitic mass] 30.3 pg Normal 27.0-34.0 [facility] Comment on above: Performed By: #### 2 764982, 89893574, 8078702, 3933329, 5023467 #### [facility] [address] [place] [address] MCHC (RBC) [Mass/Vol] 33.9 g/dL Normal 33.3-35.7 [facility] Comment on above: Performed By: #### 2 565016, 98768221, 3309429, 7957516, 7724763 #### [facility] [address] [place] [address] MCV (RBC) [Entitic vol] 89.2 fL Normal 80.0-100.0 F [facility] Comment on above: Performed By: #### 2 487752, 25021704, 1556682, 4873779, 3826092 #### [facility] [address] [place] [address] Platelet mean volume (Bld) [Entitic vol] 8.5 fL Normal 6.4-10.8 [facility] Comment on above: Performed By: #### 2 024151, 35807356, 7654658, 5838396, 2861306 #### [facility] [address] [place] [address] Platelets (Bld) [#/Vol] 254.0 E9/L Normal 150.0-500.0 [facility] Comment on above: Performed By: #### 2 256437, 30493144, 1799271, 8305139, 1271729 #### [facility] [address] [place] [address] RBC (Bld) [#/Vol] 4.6 E12/L Normal 4.3-5.9 [facility] Comment on above: Performed By: #### 2 659194, 04875861, 9781449, 4488426, 6164830 #### [facility] [address] [place] [address] WBC corrected for nucl RBC Auto (Bld) [#/Vol] 4.5 E9/L Normal 4.0-11.0 [facility] Comment on above: Performed By: #### 2 967898, 00538751, 2978737, 6351841, 2356305 #### [facility] [address] [place] [address] CMPon 12-18-2018 Albumin [Mass/Vol] 1.1 g/dL Normal 1.1-2.2 [facility] Comment on above: Performed By: #### 2 502256, 72968535, 3482193, 4873637, 4678454 #### [facility] [address] [place] [address] Albumin [Mass/Vol] 4.3 g/dL Normal 3.3-5.0 [facility] Comment on above: Performed By: #### 2 602704, 85585477, 5422181, 5146316, 2373282 #### [facility] [address] [place] [address] ALP [Catalytic activity/Vol] 61 Int._Unit/L Normal 21-98 [facility] Comment on above: Performed By: #### 2 290886, 99040029, 2189378, 1241011, 4709677 #### [facility] [address] [place] [address] ALT No additional P-5'-P [Catalytic activity/Vol] 22 Int._Unit/L Normal 6-46 [facility] Comment on above: Performed By: #### 2 797622, 59332595, 0677724, 1854791, 3758957 #### [facility] [address] [place] [address] Anion gap [Moles/Vol] 12 mmol/L Normal 6-16 [facility] Comment on above: Performed By: #### 2 997269, 92723341, 6240872, 2601437, 3264099 #### [facility] [address] [place] [address] AST [Catalytic activity/Vol] 25 Int._Unit/L Normal 5-43 [facility] Comment on above: Performed By: #### 2 631307, 14803579, 5290443, 4823899, 7926904 #### [facility] [address] [place] [address] Bilirubin [Mass/Vol] 0.6 mg/dL Normal 0.0-1.1 [facility] Comment on above: Performed By: #### 2 368879, 97237748, 1169962, 6399453, 4878033 #### [facility] [address] [place] [address] Calcium [Mass/Vol] 9.4 mg/dL Normal 8.9-11.1 [facility] Comment on above: Performed By: #### 2 525194, 93917419, 0668232, 2718900, 6150511 #### [facility] [address] [place] [address] Chloride [Moles/Vol] 104 mmol/L Normal 101-111 [facility] Comment on above: Performed By: #### 2 516735, 96047560, 6435267, 4597581, 3759960 #### [facility] [address] [place] [address] CO2 [Moles/Vol] 25 mmol/L Normal 21-31 [facility] Comment on above: Performed By: #### 2 830801, 99598161, 8360471, 8285749, 2588644 #### [facility] [address] [place] [address] Creatinine [Mass/Vol] 0.7 mg/dL Normal 0.5-1.3 [facility] Comment on above: Performed By: #### 2 339177, 62670024, 2886214, 0283372, 7668305 #### [facility] [address] [place] [address] Globulin (S) [Mass/Vol] 3.9 g/dL Normal 1.4-4.0 F [facility] Comment on above: Performed By: #### 2 272791, 20957895, 6449249, 4091171, 3890734 #### [facility] [address] [place] [address] Glucose [Mass/Vol] 94 mg/dL Normal 55-199 [facility] Comment on above: Result Comment: If t his glucose result represents a fasting glucose, interpretation should refer to the following reference range: 55-99 mg/dL Performed By: #### 2 259395, 54364199, 4363370, 5390263, 2002387 #### [facility] [address] [place] [address] Potassium [Moles/Vol] 3.9 mmol/L Normal 3.5-5.3 [facility] Comment on above: Performed By: #### 2 340379, 33164271, 5448958, 6689830, 5352294 #### [facility] [address] [place] [address] Protein [Mass/Vol] 8.2 g/dL High 6.0-7.8 [facility] Comment on above: Performed By: #### 2 923084, 05936045, 6379069, 3967620, 9121148 #### [facility] [address] [place] [address] Sodium [Moles/Vol] 137 mmol/L Normal 135-145 [facility] Comment on above: Performed By: #### 2 226127, 80545744, 6915484, 2203884, 9110241 #### [facility] [address] [place] [address] Urea nitrogen [Mass/Vol] 16 mg/dL Normal 5-21 [facility] Comment on above: Performed By: #### 2 443122, 04268989, 8048626, 6707012, 8621105 #### [facility] [address] [place] [address] Urea nitrogen/Creatinine [Mass ratio] 23 No Units High 10-20 [facility] Comment on above: Performed By: #### 2 608220, 97186213, 8207337, 9893410, 0874254 #### [facility] [address] [place] [address] Lab Miscellaneouson 12-19-19 19 Test Name HAV AB [facility] Comment on above: Performed By: #### 1 1330140 #### [facility] [address] [place] [address] U Drug Screenon 12-18-2018 Amphetamines Screen method >1000 ng/mL Ql (U) Negative Normal Negative [facility] Comment on above: Result Comment: Nega tive Cutoff: <1000 ng/mL Performed By: #### 2 137991 #### [facility] [address] [place] [address] Barbiturates Screen Ql (U) Negative Normal Negative [facility] Comment on above: Result Comment: Nega tive Cutoff: <200 ng/mL Performed By: #### 2 705587 #### [facility] [address] [place] [address] Benzodiazepines Ql (U) Negative Normal Negative [facility] Comment on above: Result Comment: Nega tive Cutoff: <200 ng/mL Performed By: #### 2 810989 #### [facility] [address] [place] [address] Cocaine Ql (U) Negative Normal Negative [facility] Comment on above: Result Comment: Nega tive Cutoff: <300 ng/mL Performed By: #### 2 391310 #### [facility] [address] [place] [address] Opiates Screen Ql (U) Negative Normal Negative [facility] Comment on above: Result Comment: Nega tive Cutoff: <300 ng/mL Performed By: #### 2 601829 #### [facility] [address] [place] [address] Phencyclidine Screen method >25 ng/mL Ql (U) Negative Normal Negative [facility] Comment on above: Result Comment: Nega tive Cutoff: <25 ng/mL These drug screen results are to be used for medical (i.e., treatment) purposes only. Unconfirmed drug screening results must not be used for non-medical purposes (e.g., employment testing, legal testing). Performed By: #### 2 909267 #### [facility] [address] [place] [address] Tetrahydrocannabinol Screen method >50 ng/mL Ql (U) Negative Normal Negative [facility] Comment on above: Result Comment: Nega tive Cutoff: <50 ng/mL Performed By: #### 2 392259 #### [facility] [address] [place] [address] eGFRon 12-18-2018 GFR/1.73 sq M predicted among blacks MDRD (S/P/Bld) [Vol rate/Area] mL/min/{1.73_m2} Normal >=59 [facility] Comment on above: Order Comment: Order added by Discern Expert. Result Comment: eGFR is race adjusted. AA=. Performed By: #### 2 579010, 50028891, 3906887, 5844861, 2418899 #### [facility] [address] [place] [address] GFR/1.73 sq M predicted among non-blacks MDRD (S/P/Bld) [Vol rate/Area] mL/min/{1.73_m2} Normal >=59 [facility] Comment on above: Order Comment: Order added by Discern Expert. Result Comment: Site Superintendent oxana kidney disease could be indicated at eGFR's of less than 60 mL/min/1.73m2. Kidney failure is indicated at less than 15 mL/min/1.73m2. Performed By: #### 2 931391, 94476378, 3974952, 0347715, 5229005 #### [facility] [address] [place] [address] Vital Signs Date Time Vital Sign Value Performing Clinician Facility 10-03-2023 11:15-0500 Body height 154.94 cm Lauren Jenkins Other [facility] Other 10-03-2023 11:15-0500 Body mass index (BMI) [Ratio] 30.23 kg/m2 Lauren Jenkins Other [facility] Other 10-03-2023 11:15-0500 Body weight 72.58 kg Lauren Jenkins Other [facility] Other 10-03-2023 11:15-0500 Diastolic blood pressure 61 mm[Hg] Lauren Jenkins Other [facility] Other 10-03-2023 11:15-0500 Systolic blood pressure 99 mm[Hg] Lauren Jenkins Other [facility] Other 07-04-2023 08:45-0400 Body height 154.94 cm Lauren Jenkins Other [facility] Other 07-04-2023 08:45-0400 Body mass index (BMI) [Ratio] 28.6 kg/m2 Lauren Jenkins Other [facility] Other 07-04-2023 08:45-0400 Body weight 68.68 kg Lauren Jenkins Other [facility] Other 07-04-2023 08:45-0400 Diastolic blood pressure 85 mm[Hg] Lauren Jenkins Other [facility] Other 07-04-2023 08:45-0400 Respiratory rate 12 /min Lauren Jenkins Other [facility] Other 07-04-2023 08:45-0400 Systolic blood pressure 126 mm[Hg] Lauren Jenkins Other [facility] Other 05-26-2023 11:45-0400 Body height 154.94 cm Lauren Jenkins Other [facility] Other 05-26-2023 11:45-0400 Body mass index (BMI) [Ratio] 28.72 kg/m2 Lauren Jenkins Other [facility] Other 05-26-2023 11:45-0400 Body weight 68.95 kg Lauren Jenkins Other [facility] Other 05-26-2023 11:45-0400 Diastolic blood pressure 66 mm[Hg] Lauren Jenkins Other [facility] Other 05-26-2023 11:45-0400 Systolic blood pressure 103 mm[Hg] Lauren Jenkins Other [facility] Other 04-30-2023 10:45-0400 Body height 154.94 cm Lauren Jenkins Other [facility] Other 04-30-2023 10:45-0400 Body mass index (BMI) [Ratio] 27.55 kg/m2 Lauren Jenkins Other [facility] Other 04-30-2023 10:45-0400 Body weight 66.13 kg Lauren Jenkins Other [facility] Other 04-30-2023 10:45-0400 Diastolic blood pressure 79 mm[Hg] Lauren Jenkins Other [facility] Other 04-30-2023 10:45-0400 Systolic blood pressure 112 mm[Hg] Lauren Jenkins Other [facility] Other 04-25-2023 11:30-0400 Body height 154.94 cm Lauren Jenkins Other [facility] Other 04-25-2023 11:30-0400 Body mass index (BMI) [Ratio] 27.58 kg/m2 Lauren Jenkins Other [facility] Other 04-25-2023 11:30-0400 Body weight 66.23 kg Lauren Jenkins Other [facility] Other 04-25-2023 11:30-0400 Diastolic blood pressure 72 mm[Hg] Lauren Jenkins Other [facility] Other 04-25-2023 11:30-0400 Systolic blood pressure 105 mm[Hg] Lauren Jenkins Other [facility] Other 11-13-2022 11:30-0500 Body height 154.94 cm Lauren Jenkins Other [facility] Other 11-13-2022 11:30-0500 Body mass index (BMI) [Ratio] 28.53 kg/m2 Lauren Jenkins Other [facility] Other 11-13-2022 11:30-0500 Body weight 68.49 kg Lauren Jenkins Other [facility] Other 11-13-2022 11:30-0500 Diastolic blood pressure 62 mm[Hg] Lauren Jenkins Other [facility] Other 11-13-2022 11:30-0500 SaO2% (BldA) [Mass fraction] 97 % Lauren Jenkins Other [facility] Other 11-13-2022 11:30-0500 Systolic blood pressure 108 mm[Hg] Lauren Jenkins Other [facility] Other 07-01-2022 10:35-0400 Body height 154.94 cm Becky Leslie Other [facility] Other 07-01-2022 10:35-0400 Body mass index (BMI) [Ratio] 25.51 kg/m2 Becky Leslie Other [facility] Other 07-01-2022 10:35-0400 Body temperature 97.3 [degF] Becky Leslie Other [facility] Other 07-01-2022 10:35-0400 Body weight 61.24 kg Becky Leslie Other [facility] Other 07-01-2022 10:35-0400 Respiratory rate 18 /min Becky Leslie Other [facility] Other 07-01-2022 10:35-0400 SaO2% (BldA) [Mass fraction] 99 % Becky Leslie Other [facility] Other Encounters Encounter Date Encounter Type Care Provider Facility Start: 10-23-2023 End: 10-24-2023 ambulatory LAUREN JENKINS Not Available Start: 10-03-2023 End: 10-03-2023 ambulatory Lauren Jenkins Other [facility] Other Start: 10-03-2023 Office outpatient vi sit 15 minutes Lauren Jenkins [facility] Start: 07-04-2023 End: 07-04-2023 ambulatory Lauren Jenkins Other [facility] Other Start: 07-04-2023 Office outpatient vi sit 15 minutes Lauren Jenkins [facility] Start: 05-26-2023 End: 05-26-2023 ambulatory Lauren Jenkins Other [facility] Other Start: 05-26-2023 Office outpatient vi sit 15 minutes Lauren Jenkins [facility] Start: 05-19-2023 End: 05-19-2023 ambulatory Lauren Jenkins Other [facility] Other Start: 05-19-2023 Telephone encounter Lauren Jenkins [facility] Start: 04-30-2023 End: 04-30-2023 ambulatory Lauren Jenkins Other [facility] Other Start: 04-30-2023 Office outpatient vi sit 15 minutes Lauren Jenkins [facility] Start: 04-25-2023 End: 04-25-2023 ambulatory Lauren Jenkins Other [facility] Other Start: 04-25-2023 Office outpatient vi sit 15 minutes Lauren Jenkins [facility] Start: 11-13-2022 End: 11-13-2022 ambulatory Lauren Jenkins Other [facility] Other Start: 11-13-2022 Office outpatient vi sit 15 minutes Lauren Jenkins [facility] Start: 07-08-2022 Gynecological examination normal Lauren Jenkins Other [facility] Other Start: 07-01-2022 End: 07-01-2022 ambulatory Becky Leslie Other [facility] Other Start: 07-01-2022 Office outpatient vi sit 25 minutes Becky Leslie [facility] Start: 04-05-2022 ambulatory AYDEE DAVENPORT Facility :[facility] Start: 12-13-2021 End: 12-14-[address] LAUREN JENKINS Facility:[facility] Start: 07-23-2021 Encounter for gynecological examination (general) (routine) without abnormal findings DR HERRERA KERN [facility] Start: 07-12-2021 End: 07-13-[address] HERRERA KERN Facility:[facility] Start: 07-09-2021 End: 07-09-[address] HERRERA KERN Facility:[facility] Start: 07-09-2021 End: 07-09-2021 Encounter for gynecological examination (general) (routine) without abnormal findings DR HERRERA KERN Facility:[facility] Start: 2021 End: [address] DOCTOR MORENO Facility:[facility] Start: 03-26-2018 End: 03-27-2018 Ambulatory DEFAULT PHYSICIAN Facility:[facility] Procedures Date Procedure Procedure Detail Performing Clinician screening Lauren marquez Other Diabetes mellitus screening Lauren Jenkins Other visit Lauren Jenkins Other Payers Date Payer Category Payer [facility] [id number] 1998 Unknown [id number] 2.16.84 [id number] 1998 Unknown [id number] 2.16.84 [id number] 1998 Unknown [id number] 2.16.84 [id number] 1998 Unknown [id number] 2.16.84 [id number] 1998 Unknown [id number] 2.16.84 [id number] 1998 Unknown [id number] [id number] 1959 Unknown [id number] 1959 Unknown [id number] 1959 Unknown [id number] 1959 Unknown [id number] Unknown Social History Date Type Detail Facility Unknown if ever smoked [facility] Other Sex Assigned At Sex Assigned At Bir th [facility] Other Clinical Notes 07-01-2022 to 10-03-2023 Note Date & Type Note Facility 10-03-2023 Evaluation note Encounter Date Diagnosis Assessment Notes Sep, Acute pain of left shoulder (ICD-10 - M25.512) Pt did complete PT earlier in 2022 with [facility] PT. She would like to check MRI. Pt has not seen Dr. Castro since PT. Will followup accordingly based on MRI results. MRI Order will be faxed to [facility]. [facility] Other 09-15-2023 Evaluation note* Encounter Date Diagnosis Assessment Notes Treatment Notes Treatment Clinical Notes Jun, Acute pain of left shoulder (ICD-10 - M25.512) Order printed for PT. Continue OTC NSAIDs as needed. Discussed appropriate dosing. 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 More energy. Got a job, not staying in as much. States she notes she is at a good level. Rx sent fro 90 days last week. Continue effexor at present dose. 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 Denies dyspnea or swelling in oropharynx. Agrees to marketing services vice president for testing to narrow down possible cause. [facility] Other 01-25-2023 Evaluation note* Encounter Date Diagnosis [...] agrees to Ortho referral for further testing. [facility] Other 09-12-2022 Evaluation note* Encounter Date Diagnosis [...] therapy plan may need to be made. [facility] Other Evaluation noteNortConsiderC Other History general Narrative - Reported* Type Description Date Medical History thyroid yst Medical History goiter Medical History bipolar Medical History hepatitis C Hospitalization History [facility] 2013 [facility] Other History general Narrative - Reported* Type Description Date Medical History thyroid yst Medical History goiter Medical History bipolar Medical History hepatitis C Surgical History LIVER BIOPSY 2019 Hospitalization History [facility] pt 2013 [facility] Other History general Narrative - ReportedNortConsiderC Other Summary Purpose Family History No Family [...] ha matitis, unspecified trigger (L23.9) Referral Organization [facility] felicia Referring Provider First Name Lauren Referring Provider Last Name Alice Referring Provider Specialty Family [facility] Referred Organization [facility] Referred Provider Adam Stiles Referred Address ,[place], [place],[address] Referred Provider Specialty Allergy/Immu nology Referral Priority Routine General Notes Noreen Zamora 02:17:19 PM >received today Noreen Zamora 04/30/2023 02:18:00 PM >notes locked, ins attached, referrl faxed Reason 12/12/22 Mitch off ice - OV, PT report, and Xray will be scanned into [facility]. Diagnosis 1 Pain in thoracic spi ne (M54.6) Referral Organization [facility] felicia Referring Provider First Name Lauren Referring Provider Last Name Alice Referring Provider Specialty [facility] Referred Organization [facility] Referred Provider Matthew,James Referred Address ,[place], [place],[address] Referred Provider Specialty Orthopedic S urgery Referral [...] 12:15:12 PM >faxed first request for consult Noreen Slater 12/18/2022 01:18:04 PM >received fax that report is not signed yet Additional Source Comments INFORMATION SOURCE (unrecogn ized section and content) DATE CREATED AUTHOR 04/07/2018 [facility] DATE CREATED AUTHOR AUTHOR'S ORGANIZ ATION 12/15/2019 [facility] DATE CREATED AUTHOR AUTHOR'S ORGANIZ ATION 04/03/2022 [facility] DATE CREATED AUTHOR AUTHOR'S ORGANIZ ATION 10/27/2023 [facility] EPIC REASON FOR VISIT [...] BE BASED ON THE PRIMARY CLINICAL RECORDS. [facility] [employer] [facility]. provides no warranty or guarantee of the accuracy or completeness of information in this document.
[2023-11-06 13:08] LABS: Basophils Percent Auto 0.5 % (0.2-2.0); Eosinophils Percent Auto 0.6 % (0.9-7.0); Hematocrit 39.2 % (36.0-48.0); Immature Granulocytes Abs Auto 0.01 10^3/uL (0.00-0.03); Immature Granulocytes Pct Auto 0.2 % (0.0-0.5); Lymphocytes Absolute Auto 2.9 10^3/uL (1.2-3.8); Lymphocytes Percent Auto 44.7 % (20.5-60.0); Mean Corpuscular HGB Conc 33.2 g/dL (29.9-35.2); Mean Corpuscular Hemoglobin 30.4 pg (26.7-34.0); Mean Corpuscular Volume 91.8 fL (81.0-99.0); Mean Platelet Volume 10.1 fL (9.5-13.5); Monocytes Absolute Auto 0.3 10^3/uL (0.3-0.8); Neutrophils Absolute Auto 3.3 10^3/uL (1.4-6.5); Platelet Count 250 10^3/uL (150-450); Red Blood Count 4.27 10^6/uL (4.20-5.40); Red Cell Distribution Width 12.4 % (11.0-15.0); White Blood Count 6.5 10^3/uL (4.0-11.0)
[2023-11-06 14:39] LABS: Alanine Aminotransferase 18 U/L (14-59); Albumin Level 3.7 g/dL (3.4-5.0); Alkaline Phosphatase 63 U/L (46-116); Anion Gap 9.7; Aspartate Amino Transferase 13 U/L (15-37); BUN Creatinine Ratio 15.6; Bilirubin Total 0.2 mg/dL (0.2-1.0); Calcium 8.7 mg/dL (8.5-10.1); Carbon Dioxide 30.8 mmol/L (21.0-32.0); Chloride 102 mmol/L (98-107); Estimated GFR (African America >60 (>=60); Estimated GFR (Non-African Ame >60 (>=60); Globulin 3.7 g/dL; Glucose 94 mg/dL (74-106); Potassium 3.5 mmol/L (3.5-5.1); Sodium 139 mmol/L (136-145); Thyroid Stimulating Hormone 0.735 uIU/mL (0.358-3.740); Total Protein 7.4 g/dL (6.4-8.2)
== END 2023-11-06 12:49 | disposition home or self-care (01) ==
LOC: LAB 12:49
PROVIDERS: PCP Family Medicine
DX: F11.20 Opioid dependence, uncomplicated (principal)
CPT/HCPCS: 36415; 80053; 82306; 84443; 85025

== ENCOUNTER 2024-05-07 16:35 | Outpatient (OUT) | payer BC, SELFPAY ==
--- NOTE | 2024-05-07 16:37 | US_ITS ---
The [address] [address] Patient Name: ROMAN WILLIAMSON MRN: [id number] date: 2000 Sex: F Assigned Patient Location: US Current Patient Location: Accession/Order Number: [id number] Exam Date: 05/07/2024 16:43 Report Date: 05/10/2024 08:41 At the request of: JUANJOSE JENKINS Procedure: US thyroid EXAMINATION: US thyroid HISTORY: THYROMEGALY E01.0 COMPARISON: No relevant comparison available. TECHNIQUE: Sonographic images of the thyroid gland were obtained. FINDINGS: The right thyroid lobe measures 5.5 x 1.0 x 2.5 cm, normal in size, contour and echotexture. Single nodule Nodule 1: 0.5 x 0.3 x 0.6 cm. Solid, hypoechoic, wide, smooth margins, no calcifications. TR 4 The thyroid isthmus measures 2.6 mm, single 4 mm nodule The left thyroid lobe measures 5.1 x 1.1 x 2.3 cm, normal in size, contour and echotexture. No focal nodules US/US thyroid IMPRESSION: 6 mm right thyroid TR 4 nodule. No follow-up required TI-RADS: The [employer] TI-RADS committee's white paper recommendations for thyroid lesions classified as TR4 (moderately suspicious) are listed below: > 1.0 cm. Follow-up ultrasound in 1, 2, 3, and 5 years. > 1.5 cm. FNA. J. Am Mayi Radiol 2017;14:587-595. Electronically authenticated by: ABDULAZIZ WATKINS Date: 05/10/2024 08:41
== END 2024-05-07 16:36 | disposition home or self-care (01) ==
LOC: US 16:35
PROVIDERS: PCP Family Medicine; Visit Provider Family Medicine
DX: E01.0 Iodine-deficiency related diffuse (endemic) goiter (principal)
CPT/HCPCS: 76536

== ENCOUNTER 2024-08-05 09:14 | Emergency (ER) | payer SELFPAY ==
[2024-08-05] VITALS (68 sets, daily range): BP systolic 87–125; BP diastolic 57–84; PULSE 73–129; TEMP 36.4; O2SAT 86–100; BMI 34.0
--- NOTE | 2024-08-05 09:29 | ECG_ITS ---
The [facility] Test Date: 2024-08-05 Pat Name: ROMAN WILLIAMSON Department: Room: - Gender: Female [employer] Operator: : 2000 Requested By: JUANJOSE JENKINS Order Number: [id number] Reading MD: BAUTISTA METZGER Measurements Intervals [place] Rate: 107 P: 38 NE: 148 QRS: 49 QRSD: 88 T: 34 QT: 344 QTc: 407 Interpretive Statements 1120 Sinus tachycardia 9140 abnormal rhythm ECG Compared to ECG 09/23/2023 21:59:42 Right-axis deviation no longer present Electronically Signed On 08-05-2024 15:00:20 EDT by BAUTISTA METZGER
--- NOTE | 2024-08-05 09:29 | XR_ITS ---
The [address] [address] Patient Name: ROMAN WILLIAMSON MRN: [id number] date: 2000 Sex: F Assigned Patient Location: ER Current Patient Location: ER Accession/Order Number: [id number] Exam Date: 08/05/2024 10:25 Report Date: 08/05/2024 11:15 At the request of: MIYA MELO Procedure: XR chest 1V EXAM: XR chest 1V HISTORY: . hemoptysis . COMPARISON: None. TECHNIQUE: Single view of the chest FINDINGS: Heart and vascularity are unremarkable. Lungs are free of focal infiltrates. Grossly no bony abnormality is appreciated. EKG leads overlie the chest. XR/XR chest 1V IMPRESSION: No acute heart or lung disease identified. Electronically authenticated by: ABDULAZIZ FERNANDES Date: 08/05/2024 11:15
--- OUTSIDE RECORDS SUMMARY | 2024-08-05 09:49 | XMS_ITS | CCD ---
Author Organization [facility] Care Team Providers Care Finish Production Manager Name Role Phone PHYSICIAN, DEFAULT Unavailable Unavailable [...] ROSALES Consulting Unavailable ISSAC, AYDEE Admitting Unavailable ISSACAYDEE Attending Unavailable JENKINS, DR LAUREN Sweet Primary Care Unavailable ERLIN, DR SILVERMAN Admitting Unavailable ERLIN, DR SILVERMAN Attending Unavailable MISC, DR SANCHEZ Primary Care Unavailable ERLIN, DR SILVERMAN Consulting Unavailable ERLIN, DR SILVERMAN Admitting Unavailable ERLIN, DR SILVERMAN Attending Unavailable MISC, DR SANCHEZ Primary Care Unavailable ERLIN, DR SILVERMAN Consulting Unavailable BROWN, ABDULAZIZ Consulting Unavailable Becky Leslie Unavailable Lauren Jenkins Unavailable LAUREN JENKINS Unavailable LASHANDA Spakrs Attending Provider MD Lauren Jenkins Primary Care Provider Asia Sparks Admitting Unavailable Asia Sparks Attending Unavailable Lauren Jenkins Primary Care Unavailable Isaac Sampson Admitting Unavailab Isaac Lyman Attending Unavailab Lauren Duong Primary Care Unavailable Allergies Allergy Classification Reported Allergen(s) Allergy Type Date of Onset Reaction(s) Facility (1 source) Amoxicillin Drug Allergy [facility] Repository (10 sources) ceftibuten Drug Allergy 05-26-20 [address] [facility] Rep[facility] (12 sources) ceftibuten Drug Allergy 11-19-19 24 Unknown, Hives [facility] Rep[facility] (1 source) Allergies Reconciled Propensity to adverse reactions Unknown [facility] Other (5 sources) Medicinal cephalosporin and acting as antibacterial agent (FN) Drug allergy 10-20-19 Unknown [facility] Other (3 sources) Cephalosporins (Antibiotic); Translations: [Cephalosporins] Allergy to substance 11-19-19 [facility] (1 source) ceftibuten Drug Allergy 05-03-20 [facility] Repository Medications Current Medications Medication Drug Class(es) Dates Sig (Normalized) Sig (Original) cariprazine 1.5 mg oral capsule (2 sources) Atypical Antipsychotic Start: 05-03-2024 End: 05-03-2024 take 1 capsule by mouth once daily Cariprazine (Vraylar) 1.5 mg capsule Active 1.5 MG PO Daily May 03, 2024 3:05pm hydrOXYzine pamoate 50 mg oral capsule (2 sources) Antihistamine Start: 05-03-2024 End: 05-03-2024 take 50 mg by mouth once daily at bedtime Hydroxyzine Pamoate Active 50 MG PO Daily at bedtime May 03, 2024 3:05pm methylPREDNISolone 4 mg oral tablet (9 sources) Corticosteroid Start: 07-01-2022 take 4 mg by mouth once daily prazosin 1 mg oral capsule (2 sources) alpha-Adrenergic Tano Start: 05-03-2024 End: 05-03-2024 take 2 mg by mouth once daily at bedtime Prazosin Active 2 MG PO Daily at bedtime May 03, 2024 3:06pm 24 hr venlafaxine 75 mg extended release oral capsule (9 sources) Serotonin and Norepinephrine Reuptake Inhibitor Start: 04-30-2024 End: 05-03-2024 take 75 mg by mouth once daily Venlafaxine Active 75 MG PO Daily May 03, 2024 3:07pm take 1 capsule by [facility] every twenty-four hours Venlafaxine HCl ER 75 MG 1 capsule with food Orally Once a day for 90 days Active Venlafaxine HCl ER 37.5 MG TAKE 1 CAPSULE BY MOUTH EVERY DAY WITH FOOD FOR 90 DAYS for 90 Active Completed/Discontinued Medications Medication Drug Class(es) Dates Sig (Normalized) Sig (Original) benzonatate 200 mg oral capsule (1 source) Non-narcotic Antitussive take 1 capsule by mouth every eight hours Benzonatate 200 MG 1 capsule Orally Three times a day Not-Taking naltrexone hydrochloride 50 mg oral tablet (2 sources) Opioid Antagonist Start: 04-30-2024 End: 05-03-2024 take 1 tablet by mouth once daily Naltrexone Discontinued 1 TAB PO Daily April 30, 2024 12:00am May 03, 2024 2:54pm FreeTextSi tablet Orally Once a day; Note: Source Status: Taking; Provider: Alice Aguilar ( ) take 1 tablet by taina th every twenty-four hours Naltrexone HCl 50 MG 1 tablet Orally Onc e a day Active tiZANidine 4 mg oral tablet (1 source) Central alpha-2 Adrenergic Agonist take 1 tablet by mouth every eight hours tiZANidine HCl 4 MG 1 tablet as needed Orally Three times a day Not-Taking valACYclovir 500 mg oral tablet (3 sources) Herpesvirus Nucleoside Analog DNA Polymerase Inhibitor, Herpes Simplex Virus Nucleoside Analog DNA Polymerase Inhibitor, Herpes Zoster Virus Nucleoside Analog DNA Polymerase Inhibitor Start: End: take 1 tablet by mouth once daily Valacyclovir (Valtrex) 500 mg tablet Discontinued 500 MG PO Daily April 30, 2024 12:00am May 03, 2024 2:54pm FreeTextSi tablet once a day; Note: Source Status: Taking; Provider: Alice Aguilar ( ) take 1 tablet by taina th every twenty-four hours Valtrex 500 MG 1 tablet once a day Active Problems Active Problems Problem Classification Problem Date [...] disease of cervix uteri] Episodic Mood disorders (17 sources) Recurrent major depressive episodes, moderate ; [...] and menstrual cycle] Episodic Other liver diseases (9 sources) Lesion of liver; Translations: [Liver disease, unspecified] Chronic Other nervous system disorders (8 sources) Chronic pain; Translations: [Other chronic pain] Chronic Other nervous system disorders (1 source) Other chronic pain Chronic Other non-traumatic joint disorders (2 sources) Pain in left shoulder Episodic Other nutritional; endocrine; and metabolic disorders (9 sources) Body mass index 30+ - obesity; Translations: [Body mass index (BMI) 32.0-32.9, adult] Chronic Other nutritional; endocrine; and metabolic disorders (2 sources) Body mass index 25-29 - overweight; Translations: [Body mass index (BMI) 26.0-26.9, adult] Episodic Other and delivery including normal (15 sources) ; Translations: [ state, incidental] Episodic Other screening for suspected conditions (not mental disorders or infectious disease) (12 sources) Thyroid function tests abnormal; Translations: [Abnormal results of thyroid function studies] Episodic Other upper respiratory disease (9 sources) Sinusitis; Translations: [Allergic rhinitis, unspecified] Chronic [...] thoracic spine] Onset: 12-13-2021 Episodic Substance-related disorders (3 sources) Cannabis abuse; Translations: [Cannabis abuse, uncomplicated] Onset: 02-19-2024 Chronic Substance-related disorders (1 source) Other psychoactive substance use, unspecified, uncomplicated Episodic Thyroid disorders (18 sources) Non-toxic nodular goiter; Translations: [Nontoxic goiter, [...] covid-19 Z20.822 Onset: 07-01-2022 Resolved: 07-01-2022 Unclassified (8 sources) Exposure to acute respiratory syndrome coronavirus 2; Translations: [Contact with and (suspected) exposure to covid-19] Results Test Name Value Interpretation Reference Range Facility Alanine aminotransferase [En zymatic activity/volume] in Serum or PlasmaOrdered By: Asia Sparks on 02-19-2024 ALT [Catalytic activity/Vol] 14 U/L Normal 7-52 [facility] Comment on above: Performed By: #### T SH3, CMP, CBC, [id number] #### [facility] [address] Albumin [Mass/volume] in Ser um or Plasma by Bromocresol green (BCG) dye binding methoOrdered By: Asia Sparks on 02-19-2024 Albumin BCG dye [Mass/Vol] 4.6 g/dL 3.5-5.7 [facility] Alkaline phosphatase [Enzyma tic activity/volume] in Serum or PlasmaOrdered By: Asia Sparks on 02-19-2024 ALP [Catalytic activity/Vol] 45 U/L Normal 34-104 [facility] Comment on above: Performed By: #### T SH3, CMP, CBC, [id number] #### [facility] [address] [place] [address] Aspartate aminotransferase [ Enzymatic activity/volume] in Serum or PlasmaOrdered By: Asia Sparks on 02-19-2024 AST [Catalytic activity/Vol] 17 U/L Normal 13-39 [facility] Comment on above: Performed By: #### T SH3, CMP, CBC, [id number] #### [facility] [address] [place] [address] [place] Automated basophil %Ordered By: Asia Sparks on 02-19-2024 Basophils/100 WBC (Bld) 0.5 % Normal . [facility] Comment on above: Performed By: #### T SH3, CMP, CBC, [id number] #### [facility] [address] [place] [address] [place] Automated basophil countOrde red By: Asia Sparks on 02-19-2024 Basophils (Bld) [#/Vol] 0.0 10*3/uL Normal 0.0-0.2 [facility] Comment on above: Result Comment: PERF ORMED BY: [place] [address] PATHOLOGIST ROD HANGER VANESSA CHRISTIANSON M.D. Performed By: #### T SH3, CMP, CBC, [id number] #### [address] Automated blood monocyte cou ntOrdered By: Asia Sparks on 02-19-2024 Monocytes (Bld) [#/Vol] 0.3 10*3/uL Normal 0.0-0.8 [facility] Comment on above: Performed By: #### T SH3, CMP, CBC, [id number] #### [address] Automated eosinophil %Ordere d By: Asia Sparks on 02-19-2024 Eosinophils/100 WBC (Bld) 1.6 % Normal . [facility] Comment on above: Performed By: #### T SH3, CMP, CBC, [id number] #### [address] Automated eosinophil countOr dered By: Asia Sparks on 02-19-2024 Eosinophils (Bld) [#/Vol] 0.1 10*3/uL Normal 0.0-0.45 [facility] Comment on above: Performed By: #### T SH3, CMP, CBC, [id number] #### [address] Automated monocyte %Ordered By: Asia Sparks on 02-19-2024 Monocytes/100 WBC (Bld) 5.1 % Normal . [facility] Comment on above: Performed By: #### T SH3, CMP, CBC, [id number] #### [address] Automated neutrophil %Ordere d By: Asia Sparks on 02-19-2024 Neutrophils/100 WBC (Bld) 45.5 % Normal . [facility] Comment on above: Performed By: #### T SH3, CMP, CBC, [id number] #### [address] Bilirubin.total [Mass/volume ] in Serum or PlasmaOrdered By: Asia Sparks on 02-19-2024 Bilirubin [Mass/Vol] 0.4 mg/dL Normal 0.3-1.0 [facility] Comment on above: Performed By: #### T SH3, CMP, CBC, [id number] #### [address] Calcium [Mass/volume] in Ser um or PlasmaOrdered By: Asia Sparks on 02-19-2024 Calcium [Mass/Vol] 9.5 mg/dL Normal 8.6-10.3 [facility] Comment on above: Performed By: #### T SH3, CMP, CBC, [id number] #### [address] Carbon dioxide, total [Moles /volume] in Serum or PlasmaOrdered By: Asia Sparks on 02-19-2024 CO2 [Moles/Vol] 29.9 mmol/L Normal 21.0-31.0 [facility] Comment on above: Performed By: #### T SH3, CMP, CBC, [id number] #### [place] [address] [place] Chloride [Moles/volume] in S derek or PlasmaOrdered By: Asia Sparks on 02-19-2024 Chloride [Moles/Vol] 103 mmol/L Normal 98-107 [facility] Comment on above: Performed By: #### T SH3, CMP, CBC, [id number] #### [address] Complete Blood Count Auto Di ffon 02-19-2024 Mean Corpuscular HGB Conc 34.4 g/dL Normal 32.0-35.0 [facility] Comment on above: Performed By: #### T SH3, CMP, CBC, [id number] #### [address] NRBC% 0.3 /100{WBC} Normal 0-0.5 [facility] Comment on above: Performed By: #### T SH3, CMP, CBC, [id number] #### [address] Comprehensive Metabolic Pane wayne 02-19-2024 Albumin [Mass/Vol] 4.6 g/dL Normal 3.5-5.7 [facility] Comment on above: Performed By: #### T SH3, CMP, CBC, [id number] #### [address] GFR/1.73 sq M.predicted MDRD (S/P/Bld) [Vol rate/Area] mL/min/{1.73_m2} Normal [facility] Comment on above: Performed By: #### T SH3, CMP, CBC, [id number] #### [address] Creatinine [Mass/volume] in Serum or PlasmaOrdered By: Asia Sparks on 02-19-2024 Creatinine [Mass/Vol] 0.74 mg/dL Normal 0.60-1.20 [facility] Comment on above: Performed By: #### T SH3, CMP, CBC, [id number] #### [address] Erythrocyte distribution wid th [Ratio] by Automated countOrdered By: Asia Sparks on 02-19-2024 Erythrocyte distribution width (RBC) [Ratio] 13.0 % Normal 11.9-15.3 [facility] Comment on above: Performed By: #### T SH3, CMP, CBC, [id number] #### [address] Erythrocytes [#/volume] in B lood by Automated countOrdered By: Asia Spraks on 02-19-2024 RBC (Bld) [#/Vol] 4.06 10*6/uL Normal 3.60-5.00 [facility] Comment on above: Performed By: #### T SH3, CMP, CBC, [id number] #### [facility] [address] Glucose [Mass/volume] in Ser um or PlasmaOrdered By: Asia Sparks on 02-19-2024 Glucose [Mass/Vol] 77 mg/dL Normal 70-100 [facility] Comment on above: ADA recommended refe rence rangeRandom Glucose Reference Range is dependent on time and content of last meal. Glucose of more than 200 mg/dL in a nonstressed, ambulatory subject supports the diagnosis of Diabetes Mellitus. Result Comment: [place] om Glucose Reference Range is dependent on time and content of last meal. Glucose of more than 200 mg/dL in a nonstressed, ambulatory subject supports the diagnosis of Diabetes Mellitus. ADA recommended reference range Performed By: #### T SH3, CMP, CBC, [id number] #### [facility] [address] Hematocrit [Volume Fraction] of Blood by Automated countOrdered By: Asia Sparks on 02-19-2024 Hematocrit (Bld) [Volume fraction] 36.1 % Normal 34.0-46.4 [facility] Comment on above: Performed By: #### T SH3, CMP, CBC, [id number] #### [facility] [address] Hemoglobin [Mass/volume] in BloodOrdered By: Asia Sparks on 02-19-2024 Hemoglobin (Bld) [Mass/Vol] 12.4 g/dL Normal 11.8-15.4 [facility] Comment on above: Performed By: #### T SH3, CMP, CBC, [id number] #### [place] [address] [place] Leukocytes [#/volume] correc julita for nucleated erythrocytes in Blood by Automated counOrdered By: Asia Sparks on 02-19-2024 WBC corrected for nucl RBC Auto (Bld) [#/Vol] 5.1 10*3/uL 3.8-11.6 [facility] Leukocytes [#/volume] in Blo od by Automated countOrdered By: Asia Sparks on 02-19-2024 WBC (Bld) [#/Vol] 5.1 10*3/uL Normal 3.8-11.6 [facility] Comment on above: Performed By: #### T SH3, CMP, CBC, [id number] #### [facility] [address] Lymphocytes [#/volume] in Bl ood by Automated countOrdered By: Asia Sparks on 02-19-2024 Lymphocytes (Bld) [#/Vol] 2.4 10*3/uL Normal 1.00-4.8 [facility] Comment on above: Performed By: #### T SH3, CMP, CBC, [id number] #### [facility] [address] Lymphocytes/100 leukocytes i n Blood by Automated countOrdered By: Asia Sparks on 02-19-2024 Lymphocytes/100 WBC (Bld) 47.3 % Normal . [facility] Comment on above: Performed By: #### T SH3, CMP, CBC, [id number] #### [facility] [address] [place] [address] [place] MCH [Entitic mass] by Automa julita countOrdered By: Asia Sparks on 02-19-2024 MCH (RBC) [Entitic mass] 30.6 pg Normal 24.7-34.3 [facility] Comment on above: Performed By: #### T SH3, CMP, CBC, [id number] #### [facility] [address] MCHC Auto (RBC) [Mass/Vol]Or dered By: Asia Sparks on 02-19-2024 MCHC (RBC) [Mass/Vol] 34.4 g/dL 32.0-35.0 [facility] MCV [Entitic volume] by Auto mated countOrdered By: Asia Sparks on 02-19-2024 MCV (RBC) [Entitic vol] 89.0 fL Normal 80-100 [facility] Comment on above: Performed By: #### T SH3, CMP, CBC, [id number] #### [facility] [address] [place] [address] Neutrophils [#/volume] in Bl ood by Automated countOrdered By: Asia Sparks on 02-19-2024 Neutrophils (Bld) [#/Vol] 2.3 10*3/uL Normal 1.8-7.7 [facility] Comment on above: Performed By: #### T SH3, CMP, CBC, [id number] #### [facility] [address] [place] [address] No Panel InformationOrdered By: Asia Sparks on 02-19-2024 Estimated GFR (CKD-EPI) > 60.0 mL/Min [facility] Creatinine Clearance (Chem N/A [facility] Nucleated erythrocytes [Pres ence] in Blood by Automated countOrdered By: Asia Sparks on 02-19-2024 Nucleated RBC Auto Ql (Bld) 0.3 /100{WBC} 0-0.5 [facility] Platelet mean volume [Entiti c volume] in Blood by Automated countOrdered By: Asia Sparks on 02-19-2024 Platelet mean volume (Bld) [Entitic vol] 8.1 fL Normal 6.3-10.7 [facility] Comment on above: Performed By: #### T SH3, CMP, CBC, [id number] #### [facility] [address] [place] [address] Platelets [#/volume] in Bloo d by Automated countOrdered By: Asia Sparks on 02-19-2024 Platelets (Bld) [#/Vol] 262 10*3/uL Normal 150-450 [facility] Comment on above: Performed By: #### T SH3, CMP, CBC, [id number] #### [facility] [address] [place] [address] Potassium [Moles/volume] in Serum or PlasmaOrdered By: Asia Sparks on 02-19-2024 Potassium [Moles/Vol] 4.6 mmol/L Normal 3.5-5.1 [facility] Comment on above: Performed By: #### T SH3, CMP, CBC, [id number] #### [address] Protein [Mass/volume] in Ser um or PlasmaOrdered By: Asia Sparks on 02-19-2024 Protein [Mass/Vol] 7.0 g/dL Normal 6.4-8.9 [facility] Comment on above: Performed By: #### T SH3, CMP, CBC, [id number] #### [address] Serum globulin measurement b y calculation (mass/volume)Ordered By: Asia Sparks on 02-19-2024 Globulin (S) [Mass/Vol] 2.4 g/dL Normal [facility] Comment on above: Performed By: #### T SH3, CMP, CBC, [id number] #### [address] Serum or plasma albumin/glob ulin mass ratioOrdered By: Asia Sparks on 02-19-2024 Albumin/Globulin [Mass ratio] 1.9 {ratio} Normal [facility] Comment on above: Performed By: #### T SH3, CMP, CBC, [id number] #### [address] Serum or plasma anion gap de terminationOrdered By: Asia Sparks on 02-19-2024 Anion gap [Moles/Vol] 8.7 mmol/L Normal 6.0-15.0 [facility] Comment on above: Performed By: #### T SH3, CMP, CBC, [id number] #### [address] Sodium [Moles/volume] in Ser um or PlasmaOrdered By: Asia Sparks on 02-19-2024 Sodium [Moles/Vol] 137 mmol/L Normal 136-145 [facility] Comment on above: Performed By: #### T SH3, CMP, CBC, [id number] #### [address] Thyrotropin [Units/volume] i n Serum or PlasmaOrdered By: Asia Sparks on 02-19-2024 TSH Qn 0.75 m[IU]/L Normal 0.45-5.33 [facility] Comment on above: Performed By: #### T SH3, CMP, CBC, [id number] #### [address] Urea nitrogen [Mass/volume] in Serum or PlasmaOrdered By: sAia Sparks on 02-19-2024 Urea nitrogen [Mass/Vol] 16 mg/dL Normal 7-25 [facility] Comment on above: Performed By: #### T SH3, CMP, CBC, [id number] #### [facility] [address] Vitamin D 25 Hydroxy Totalon 02-19-2024 Vitamin D 25 Hydroxy Total 25.6 ng/mL Low 30-100 [facility] Comment on above: Result Comment: RAJENDRA MIN D STATUS 25(OH)VITAMIN D RANGE (ng/mL) Deficient <20 Insufficient 20 to <30 Sufficient 30 to 100 Reference: Michael Delgado, Leland DEL CID, et al. Evaluation,treatment, and prevention of vitamin D deficiency; an Endocrine Society clinical practice guideline. JCEM. 2010; 96(7):1911-30. PERFORMED BY: [place] [address] PATHOLOGIST ROD HANGER VANESSA CHRISTIANSON M.D. Performed By: #### T SH3, CMP, CBC, [id number] #### [place] [id number] [facility] Vitamin D+Metabolites [Mass/ volume] in Serum or PlasmaOrdered By: Asia Sparks on 02-19-2024 Vitamin D+Metabolites [Mass/Vol] 25.6 ng/mL Low 30-100 [facility] Comment on above: VITAMIN D STATUS 25( OH)VITAMIN D RANGE (ng/mL) Deficient <20 Insufficient 20 to <30Sufficient 30 to 100Reference: Michael Delgado, Leland DEL CID, et al. Evaluation,treatment, and prevention of vitamin D deficiency; an Endocrine Society clinical practice guideline. JCEM. 2010; 96(7):1911-30. MR SHOULDER LEFT WO IV CONTR Avinash [...] Available COVID Quick Testingon 2021 Result Negative [facility] Other Quick Strepon 07-01-2022 S. pyogenes Org specific cx Ql (Throat) Negative [employer] Other Quick Strep [facility] Other XR TSPINE 3 VIEWSon 12-13-19 22 [...] ABDULAZIZ WATKINS Date: 2021-12-13 10:09 Normal [facility] US PELVIS AND TRANSVAGon US [...] authenticated by: ABDULAZIZ FERNANDES Date: 2021-07-12 11:17 [facility] PAP ACOG PANEL 2: 19 to 27on 07-11-2021 . . Normal [facility] Comment on above: Performed By: #### [id number] #### [facility] [address] [place] [address] Dr. Luis Fernando Martinez Age Gdln ACOG Testing - [facility] Comment on above: Performed By: #### [id number] #### [facility] [address] [place] [address] [address] Luis Fernando Martinez DIAGNOSIS: Comment [facility] Comment on above: Result Comment: NEGA TIVE FOR INTRAEPITHELIAL LESION OR MALIGNANCY. Performed By: #### [id number] #### [facility] [address] [place] [address] Dr. Luis Fernando Martinez Methodology: Comment [facility] Comment on above: Result Comment: This liquid based ThinPrep(R) pap test was screened with the use of an image guided system. Performed By: #### [id number] #### [facility] [address] [place] [address] Dr. Luis Fernando Martinez Note: Comment [facility] Comment on above: Result Comment: The Pap smear is a screening test designed to aid in the detection of premalignant and malignant conditions of the uterine cervix. It is not a diagnostic procedure and should not be used as the sole means of detecting cervical cancer. Both false-positive and false-negative reports do occur. . Performed By: #### [id number] #### [facility] [address] [place] [address] [address] Luis Fernando Martinez Performed by: Comment Normal [facility] Comment on above: Result Comment: Dexter Kimbrough, Cath Lab Radiological Technologist (ASCP) Performed By: #### [id number] #### [facility] [address] [place] [address] [address] Luis Fernando Martinez Reflex Criteria: Comment Normal [facility] Comment on above: Result Comment: The HPV DNA reflex criteria were not met with this specimen result therefore, no HPV testing was performed. . Performed By: #### [id number] #### [facility] [address] [place] [address] [address] Luis Fernando Martinez Specimen adequacy: Comment Normal [facility] Comment on above: Result Comment: Sati sfactory for evaluation. Endocervical and/or squamous metaplastic cells (endocervical component) are present. Performed By: #### [id number] #### [facility] [address] [place] [address] Dr. Luis Fernando Martinez Coding Summary.on 04-13-2019 Coding Summary. CODING DATE: 04/13/2019 FINAL [facility] STATUS: Home (Routine DC) PAYOR: Medicaid [...] [place] Date Saved: 04/13/2019 08:33 am Normal [facility] Coding Summary.on 03-18-2019 Coding Summary. CODING DATE: 03/18/2019 FINAL [facility] STATUS: Home (Routine DC) PAYOR: Medicaid EAPG DESCRIPTION 0457 VENIPUNCTURE 0405 THERAPEUTIC DRUG MONITORING [...] CphT Date Saved: 03/18/2019 08:30 am Normal [facility] Ethanolon 03-16-2019 Ethanol [Mass/Vol] mg/dL Normal <=7 [facility] Comment on above: Performed By: #### [id number] #### [facility] [address] [place] [address] U Drug Screenon 03-16-2019 Amphetamines Screen method >1000 ng/mL Ql (U) Negative Normal Negative [facility] Comment on above: Result Comment: Nega tive Cutoff: <1000 ng/mL Performed By: #### [id number] #### [facility] [address] [place] [address] Barbiturates Screen Ql (U) Negative Normal Negative [facility] Comment on above: Result Comment: Nega tive Cutoff: <200 ng/mL Performed By: #### [id number] #### [facility] [address] [place] [address] Benzodiazepines Ql (U) Negative Normal Negative [facility] Comment on above: Result Comment: Nega tive Cutoff: <200 ng/mL Performed By: #### 2 [id number] #### [facility] [address] [place] [address] Cocaine Ql (U) Negative Normal Negative [facility] Comment on above: Result Comment: Nega tive Cutoff: <300 ng/mL Performed By: #### 2 [id number] #### [facility] [address] [place] [address] Opiates Screen Ql (U) Negative Normal Negative [facility] Comment on above: Result Comment: Nega tive Cutoff: <300 ng/mL Performed By: #### 2 [id number] #### [facility] [address] [place] [address] Phencyclidine Screen method >25 ng/mL Ql (U) Negative Normal Negative [facility] Comment on above: Result Comment: Nega tive Cutoff: <25 ng/mL These drug screen results are to be used for medical (i.e., treatment) purposes only. Unconfirmed drug screening results must not be used for non-medical purposes (e.g., employment testing, legal testing). Performed By: #### 2 [id number] #### [facility] [address] [place] [address] Tetrahydrocannabinol Screen method >50 ng/mL Ql (U) Negative Normal Negative [facility] Comment on above: Result Comment: Nega tive Cutoff: <50 ng/mL Performed By: #### 2 [id number] #### [facility] [address] [place] [address] Hep Bs Abon 12-23-2018 HBV surface Ab Ql (S) Non Reactive [facility] Comment on above: Result Comment: Non Reactive: Inconsistent with immunity, less than 10 mIU/mL Reactive: Consistent with immunity, greater than 9.9 mIU/mL Performed at: [facility] [id number] PhD Jessy Jones Performed By: #### 2 935642, [id number], 1437495, 0736603, 4123397 #### [facility] [address] [place] [address] Hep Bs Agon 12-23-2018 HBV surface Ag IA Ql Negative Negative [facility] Comment on above: Result Comment: [facility]f ormed at: [facility] [place] [address] [id number] PhD Jessy Jones Performed By: #### 2 049618, [id number], 4511036, 3939438, 6139275 #### [facility] [address] [place] [address] Coding Summary.on 12-21-2018 Coding Summary. CODING DATE: 12/21/2018 FINAL [facility] STATUS: Home (Routine DC) PAYOR: Medicaid [...] CphT Date Saved: 12/21/2018 11:32 am Normal [facility] Miscellaneouson 12-20-19 19 Status See Ref Lab Report Normal [facility] Comment on above: Performed By: #### 1 [id number] #### [facility] [address] [place] [address] CBC w/Indiceson 12-18-2018 Erythrocyte distribution width (RBC) [Ratio] 13.4 % Normal 10.9-14.2 [facility] Comment on above: Performed By: #### 2 969550, 90601862, 2696762, 2939426, 0411310 #### [facility] [address] [place] [address] Hematocrit (Bld) [Volume fraction] 41.5 % Normal 34.0-46.0 [facility] Comment on above: Performed By: #### 2 310850, 07798111, 0235284, 9792809, 2313265 #### [facility] [address] [place] [address] Hemoglobin (Bld) [Mass/Vol] 14.1 g/dL Normal 12.0-16.0 [facility] Comment on above: Performed By: #### 2 593452, 58226289, 5029983, 9501942, 0538889 #### [facility] [address] [place] [address] MCH (RBC) [Entitic mass] 30.3 pg Normal 27.0-34.0 [facility] Comment on above: Performed By: #### 2 846045, 71563333, 3206225, 5684349, 1572250 #### [facility] [address] [place] [address] MCHC (RBC) [Mass/Vol] 33.9 g/dL Normal 33.3-35.7 [facility] Comment on above: Performed By: #### 2 552742, 28104726, 1572921, 6306180, 0391624 #### [facility] [address] [place] [address] MCV (RBC) [Entitic vol] 89.2 fL Normal 80.0-100.0 [facility] Comment on above: Performed By: #### 2 987229, 72970472, 4794350, 1314131, 2030593 #### [facility] [address] [place] [address] Platelet mean volume (Bld) [Entitic vol] 8.5 fL Normal 6.4-10.8 [facility] Comment on above: Performed By: #### 2 998131, 14186464, 0127208, 2532369, 3264257 #### [facility] [address] [place] [address] Platelets (Bld) [#/Vol] 254.0 E9/L Normal 150.0-500.0 [facility] Comment on above: Performed By: #### 2 514331, 57290754, 2052651, 6958506, 0510087 #### [facility] [address] [place] [address] RBC (Bld) [#/Vol] 4.6 E12/L Normal 4.3-5.9 [facility] Comment on above: Performed By: #### 2 138603, 60309730, 1269611, 0501404, 9277947 #### [facility] [address] [place] [address] WBC corrected for nucl RBC Auto (Bld) [#/Vol] 4.5 E9/L Normal 4.0-11.0 [facility] Comment on above: Performed By: #### 2 030634, 98198876, 0672448, 5173463, 6930298 #### [facility] [address] [place] [address] CMPon 12-18-2018 Albumin [Mass/Vol] 1.1 g/dL Normal 1.1-2.2 [facility] Comment on above: Performed By: #### 2 603426, 34147539, 9628014, 7441847, 6101901 #### [facility] [address] [place] [address] Albumin [Mass/Vol] 4.3 g/dL Normal 3.3-5.0 [facility] Comment on above: Performed By: #### 2 837102, 87646463, 2512982, 6760171, 7043478 #### [facility] [address] [place] [address] ALP [Catalytic activity/Vol] 61 Int._Unit/L Normal 21-98 [facility] Comment on above: Performed By: #### 2 937606, 12986243, 1715597, 0639807, 7834879 #### [facility] [address] [place] [address] ALT No additional P-5'-P [Catalytic activity/Vol] 22 Int._Unit/L Normal 6-46 [facility] Comment on above: Performed By: #### 2 770187, 12863266, 2726904, 2397851, 2427470 #### [facility] [address] [place] [address] Anion gap [Moles/Vol] 12 mmol/L Normal 6-16 [facility] Comment on above: Performed By: #### 2 009610, 57100522, 2632307, 8090878, 8328010 #### [facility] [address] [place] [address] AST [Catalytic activity/Vol] 25 Int._Unit/L Normal 5-43 [facility] Comment on above: Performed By: #### 2 122703, 96201687, 3990786, 8091394, 5249409 #### [facility] [address] [place] [address] Bilirubin [Mass/Vol] 0.6 mg/dL Normal 0.0-1.1 [facility] Comment on above: Performed By: #### 2 656656, 86668802, 8054189, 1470848, 2253565 #### [facility] [address] [place] [address] Calcium [Mass/Vol] 9.4 mg/dL Normal 8.9-11.1 [facility] Comment on above: Performed By: #### 2 083331, 81845672, 8174041, 1164242, 5694674 #### [facility] [address] [place] [address] Chloride [Moles/Vol] 104 mmol/L Normal 101-111 [facility] Comment on above: Performed By: #### 2 457049, 50311833, 1061822, 0007360, 8262334 #### [facility] [address] [place] [address] CO2 [Moles/Vol] 25 mmol/L Normal 21-31 [facility] Comment on above: Performed By: #### 2 273811, 75617011, 1142173, 7161841, 4124746 #### [facility] [address] [place] [address] Creatinine [Mass/Vol] 0.7 mg/dL Normal 0.5-1.3 [facility] Comment on above: Performed By: #### 2 328471, 72095553, 0517360, 5560940, 4047447 #### [facility] [address] [place] [address] Globulin (S) [Mass/Vol] 3.9 g/dL Normal 1.4-4.0 [facility] Comment on above: Performed By: #### 2 728528, 63557728, 4925305, 1420718, 1100966 #### [facility] [address] [place] [address] Glucose [Mass/Vol] 94 mg/dL Normal 55-199 [facility] Comment on above: Result Comment: If t his glucose result represents a fasting glucose, interpretation should refer to the following reference range: 55-99 mg/dL Performed By: #### 2 271432, 08695061, 0774050, 5147818, 5973116 #### [facility] [address] [place] [address] Potassium [Moles/Vol] 3.9 mmol/L Normal 3.5-5.3 [facility] Comment on above: Performed By: #### 2 459494, 31703231, 8574439, 7872288, 9964375 #### [facility] [address] [place] [address] Protein [Mass/Vol] 8.2 g/dL High 6.0-7.8 [facility] Comment on above: Performed By: #### 2 864227, 38054189, 4393352, 5677743, 4253615 #### [facility] [address] [place] [address] Sodium [Moles/Vol] 137 mmol/L Normal 135-145 [facility] Comment on above: Performed By: #### 2 501419, 05407996, 9697807, 9392615, 8687753 #### [facility] [address] [place] [address] Urea nitrogen [Mass/Vol] 16 mg/dL Normal 5-21 [facility] Comment on above: Performed By: #### 2 570956, 10915381, 6503418, 7822255, 0603458 #### [facility] [address] [place] [address] Urea nitrogen/Creatinine [Mass ratio] 23 No Units High 10-20 [facility] Comment on above: Performed By: #### 2 860499, 15643702, 9945531, 6839854, 1287780 #### [facility] [address] [place] [address] Lab Miscellaneouson 12-19-19 19 Test Name HAV AB [facility] Comment on above: Performed By: #### 1 [id number] #### [facility] [address] [place] [address] U Drug Screenon 12-18-2018 Amphetamines Screen method >1000 ng/mL Ql (U) Negative Normal Negative [facility] Comment on above: Result Comment: Nega tive Cutoff: <1000 ng/mL Performed By: #### 2 735827 #### [facility] [address] [place] [address] Barbiturates Screen Ql (U) Negative Normal Negative [facility] Comment on above: Result Comment: Nega tive Cutoff: <200 ng/mL Performed By: #### 2 649893 #### [facility] [address] [place] [address] Benzodiazepines Ql (U) Negative Normal Negative [facility] Comment on above: Result Comment: Nega tive Cutoff: <200 ng/mL Performed By: #### 2 653658 #### [facility] [address] [place] [address] Cocaine Ql (U) Negative Normal Negative [facility] Comment on above: Result Comment: Nega tive Cutoff: <300 ng/mL Performed By: #### 2 857256 #### [facility] [address] [place] [address] Opiates Screen Ql (U) Negative Normal Negative [facility] Comment on above: Result Comment: Nega tive Cutoff: <300 ng/mL Performed By: #### 2 892881 #### [facility] [address] [place] [address] Phencyclidine Screen method >25 ng/mL Ql (U) Negative Normal Negative [facility] Comment on above: Result Comment: Nega tive Cutoff: <25 ng/mL These drug screen results are to be used for medical (i.e., treatment) purposes only. Unconfirmed drug screening results must not be used for non-medical purposes (e.g., employment testing, legal testing). Performed By: #### 2 589688 #### [facility] [address] [place] [address] Tetrahydrocannabinol Screen method >50 ng/mL Ql (U) Negative Normal Negative [facility] Comment on above: Result Comment: Nega tive Cutoff: <50 ng/mL Performed By: #### 2 514057 #### [facility] [address] [place] [address] eGFRon 12-18-2018 GFR/1.73 sq M predicted among blacks MDRD (S/P/Bld) [Vol rate/Area] mL/min/{1.73_m2} Normal >=59 [facility] Comment on above: Order Comment: Order added by Discern Expert. Result Comment: eGFR is race adjusted. AA=. Performed By: #### 2 630654, 20544727, 3808458, 7717983, 9450444 #### [facility] [address] [place] [address] GFR/1.73 sq M predicted among non-blacks MDRD (S/P/Bld) [Vol rate/Area] mL/min/{1.73_m2} Normal >=59 [facility] Comment on above: Order Comment: Order added by Discern Expert. Result Comment: Inventory Specialist oxana kidney disease could be indicated at eGFR's of less than 60 mL/min/1.73m2. Kidney failure is indicated at less than 15 mL/min/1.73m2. Performed By: #### 2 330985, 84742402, 5123433, 0221797, 7833926 #### [facility] [address] [place] [address] Vital Signs Date Time Vital Sign Value Performing Clinician Facility 05-03-2024 14:41-040 Body height 154.94 cm MD Lauren Jenkins Work Phone: [facility] 05-03-2024 14:41-0400 Body mass index (BMI) [Ratio] 32.3 kg/m2 MD Lauren Jenkins Work Phone: [facility] 05-03-2024 14:41-0400 Body weight 77.56 kg MD Lauren Jenkins Work Phone: [facility] 05-03-2024 14:41-0400 Diastolic blood pressure 68 mm[Hg] MD Lauren Jenkins Work Phone: [facility] 05-03-2024 14:41-0400 Heart rate 89 /min MD Lauren Jenkins Work Phone: [facility] 05-03-2024 14:41-0400 Systolic blood pressure 99 mm[Hg] MD Lauren Jenkins Work Phone: [facility] 11-19-2023 11:30-0500 Body height 154.94 cm Lauren Jenkins Other [facility] Other 11-19-2023 11:30-0500 Body mass index (BMI) [Ratio] 30.64 kg/m2 Lauren Jenkins Other [facility] Other 11-19-2023 11:30-0500 Body weight 73.57 kg Lauren Jenkins Other [facility] Other 11-19-2023 11:30-0500 Diastolic blood pressure 73 mm[Hg] Lauren Jenkins Other [facility] Other 11-19-2023 11:30-0500 Systolic blood pressure 106 mm[Hg] Lauren Jenkins Other [facility] Other 10-03-2023 11:15-0500 Body height 154.94 cm Lauren Jenkins Other [facility] Other 10-03-2023 11:15-0500 Body mass index (BMI) [Ratio] 30.23 kg/m2 Lauren Jenkins Other [facility] Other 10-03-2023 11:15-0500 Body weight 72.58 kg Lauren Jenkins Other [facility] Other 10-03-2023 11:15-0500 Diastolic blood pressure 61 mm[Hg] Lauren Jenkins Other [facility] Other 10-03-2023 11:15-0500 Systolic blood pressure 99 mm[Hg] Lauren Jenkins Other [facility] Other 07-04-2023 08:45-0400 Body height 154.94 cm Lauern Jenkins Other [facility] Other 07-04-2023 08:45-0400 Body mass index (BMI) [Ratio] 28.6 kg/m2 Lauren Jenkins Other [facility] Other 07-04-2023 08:45-0400 Body weight 68.68 kg Lauren Jenkins Other [facility] Other 07-04-2023 08:45-0400 Diastolic blood pressure 85 mm[Hg] Lauren Jenkins Other [facility] Other 07-04-2023 08:45-0400 Respiratory rate 12 /min Lauren Jenkins Other [facility] Other 07-04-2023 08:45-0400 Systolic blood pressure 126 mm[Hg] Lauren Jenkins Other [facility] Other 05-26-2023 11:45-0400 Body height 154.94 cm Lauren Jenkins Other [facility] Other 05-26-2023 11:45-0400 Body mass index (BMI) [Ratio] 28.72 kg/m2 Lauren Jenkins Other [facility] Other 05-26-2023 11:45-0400 Body weight 68.95 kg Lauren Jenkins Other [facility] Other 05-26-2023 11:45-0400 Diastolic blood pressure 66 mm[Hg] Lauren Jenkins Other [facility] Other 05-26-2023 11:45-0400 Systolic blood pressure 103 mm[Hg] Lauren Jenkins Other [facility] Other 04-30-2023 10:45-0400 Body height 154.94 cm Lauren Jenkins Other [facility] Other 04-30-2023 10:45-0400 Body mass index (BMI) [Ratio] 27.55 kg/m2 Lauren Jenkins Other [facility] Other 04-30-2023 10:45-0400 Body weight 66.13 kg Lauren Jenkins Other [facility] Other 04-30-2023 10:45-0400 Diastolic blood pressure 79 mm[Hg] Lauren Jenkins Other [facility] Other 04-30-2023 10:45-0400 Systolic blood pressure 112 mm[Hg] Lauren Jenkins Other [facility] Other 04-25-2023 11:30-0400 Body height 154.94 cm Lauren Jenkins Other [facility] Other 04-25-2023 11:30-0400 Body mass index (BMI) [Ratio] 27.58 kg/m2 Lauren Jenkins Other [facility] Other 04-25-2023 11:30-0400 Body weight 66.23 kg Lauren Jenkins Other [facility] Other 04-25-2023 11:30-0400 Diastolic blood pressure 72 mm[Hg] Lauren Jenkins Other [facility] Other 04-25-2023 11:30-0400 Systolic blood pressure 105 mm[Hg] Lauren Jenkins Other [facility] Other 11-13-2022 11:30-0500 Body height 154.94 cm Lauren Jenkins Other [facility] Other 11-13-2022 11:30-0500 Body mass index (BMI) [Ratio] 28.53 kg/m2 Lauren Jenkins Other [facility] Other 11-13-2022 11:30-0500 Body weight 68.49 kg Lauren Jenkins Other [facility] Other 11-13-2022 11:30-0500 Diastolic blood pressure 62 mm[Hg] Lauren Jenkins Other [facility] Other 11-13-2022 11:30-0500 SaO2% (BldA) [Mass fraction] 97 % Lauren Jenkins Other [facility] Other 11-13-2022 11:30-0500 Systolic blood pressure 108 mm[Hg] Lauren Jenkins Other [facility] Other 07-01-2022 10:35-0400 Body height 154.94 cm Becky Leslie Other [facility] Other 07-01-2022 10:35-0400 Body mass index (BMI) [Ratio] 25.51 kg/m2 Becky Leslie Other [facility] Other 07-01-2022 10:35-0400 Body temperature 97.3 [degF] Becky Leslie Other [facility] Other 07-01-2022 10:35-0400 Body weight 61.24 kg Becky Leslie Other [facility] Other 07-01-2022 10:35-0400 Respiratory rate 18 /min Becky Leslie Other [facility] Other 07-01-2022 10:35-0400 SaO2% (BldA) [Mass fraction] 99 % Becky Leslie Other [facility] Other Encounters Encounter Date Encounter Type Care Provider Facility Start: 05-03-2024 End: 05-03-2024 ambulatory MD Lauren Jenkins Work Phone: [facility] Work Phone: Start: 05-03-2024 End: 05-03-2024 Patient encounter procedure MD Lauren Jenkins [facility]: Start: 04-16-2024 ambulatory Isaac Blair acility:[facility] Start: 02-19-2024 End: 02-19-2024 Patient encounter procedure MD Lauren Jenkins Work Phone: [facility] [place] Work Phone: Start: 02-19-2024 End: 02-19-2024 ambulatory MD Lauren Jenkins Work Phone: [facility] Work Phone: Start: 11-19-2023 End: 11-19-2023 ambulatory Lauren Jenkins Other [facility] Other Start: 11-19-2023 Office outpatient vi sit 15 minutes Lauren Jenkins [facility] Start: 10-23-2023 End: 10-24-2023 ambulatory LAUREN ALICE Not Available Start: 10-03-2023 End: 10-03-2023 ambulatory Lauren Jenkins Other [facility] Other Start: 10-03-2023 Office outpatient vi sit 15 minutes Lauren Jenkins [facility] Start: 07-04-2023 End: 07-04-2023 ambulatory Lauren Alice Other [facility] Other Start: 07-04-2023 Office outpatient vi sit 15 minutes Lauren Jenkins [facility] Start: 05-26-2023 End: 05-26-2023 ambulatory Lauren Alice Other [facility] Other Start: 05-26-2023 Office outpatient vi sit 15 minutes Lauren Alice [facility] Start: 05-19-2023 End: 05-19-2023 ambulatory Lauren Alice Other [facility] Other Start: 05-19-2023 Telephone encounter Lauren Jenkins [facility] Start: 04-30-2023 End: 04-30-2023 ambulatory Lauren Alice Other [facility] Other Start: 04-30-2023 Office outpatient vi sit 15 minutes Lauren lAice [facility] Start: 04-25-2023 End: 04-25-2023 ambulatory Lauren Alice Other [facility] Other Start: 04-25-2023 Office outpatient vi sit 15 minutes Lauren Alice [facility] Start: 11-13-2022 End: 11-13-2022 ambulatory Lauren Alice Other [facility] Other Start: 11-13-2022 Office outpatient vi sit 15 minutes Lauren Jenkins [facility] Start: 07-08-2022 Gynecological examination normal Lauren Jenkins Other [facility] Other Start: 07-01-2022 End: 07-01-2022 ambulatory Becky Leslie Other [facility] Other Start: 07-01-2022 Office outpatient vi sit 25 minutes Becky Leslie [facility] Start: 04-05-2022 ambulatory AYDEE DAVENPORT Facility :[facility] Start: 12-13-2021 End: 12-14-[address] LAUREN JENKINS Facility:[facility] Start: 07-23-2021 Encounter for gynecological examination (general) (routine) without abnormal findings DR HERRERA KERN [facility] Start: 07-12-2021 End: 07-13-[address] HERRERA KERN Facility:[facility] Start: 07-09-2021 End: 07-09-[address] HERRERA KERN Facility:[facility] Start: 07-09-2021 End: 07-09-2021 Encounter for gynecological examination (general) (routine) without abnormal findings DR HERRERA KERN Facility:[facility] Start: 2021 End: [address] DOCTOR MORENO Facility:[facility] Start: 03-26-2018 End: 03-27-2018 Ambulatory DEFAULT PHYSICIAN Facility:[facility] Procedures Date Procedure Procedure Detail Performing Clinician screening Lauren marquez Other Diabetes mellitus screening Lauren Jenkins Other visit Lauren Jenkins Other Payers Date Payer Category Payer Self-pay 2024 Unknown [id number] 2022 [facility] [id number] 1998 Unknown [id number] 2.16.84 [id number] 1998 Unknown [id number] 2.16.84 [id number] 1998 Unknown [id number] 2.16.84 [id number] 1998 Unknown [id number] 2.16.84 [id number] 1998 Unknown [id number] 2.16.84 [id number] 1998 Unknown [id number] 2.16.840 .[id number] 1959 Unknown [id number] 1959 Unknown [id number] 1959 Unknown [id number] 1959 Unknown [id number] Unknown Unknown [id number] 2.16.8 [id number] Unknown [id number] 2.16.8 [id number] Social History Date Type Detail Facility Unknown if ever smoked [facility] Other Sex Assigned At Sex Assigned At Bir th [facility] Other Start: 01-07-2024 End: 05-03-2024 Tobacco smoking status NHIS Smoker (finding) [facility] Start: 2000 Sex Assigned At Female F [facility] Clinical Notes 07-01-2022 to 11-19-2023 Note Date & Type Note Facility 11-19-2023 Evaluation note Encounter Date Diagnosis Assessment Notes Oct, Moderate episode of recurrent major depressive disorder (ICD-10 - F33.1) Continue venlafaxine and treatment w [facility] Oct, Low TSH level (ICD-10 - R94.6) Now stablized, recheck if fatigue recurrs in the future Oct, Substance use disorder (ICD-10 - F19.90) Continue outpt treatment w [facility] in [place]. [facility] Other [id number] Evaluation note* Encounter Date Diagnosis Assessment Notes Treatment Notes Treatment Clinical Notes Sep, Acute pain of left shoulder (ICD-10 - M25.512) Pt did complete PT earlier in 2022 with [facility] PT. She would like to check MRI. Pt has not seen Dr. Castro since PT. Will followup accordingly based on MRI results. MRI Order will be faxed to [facility]. [facility] Other 09-15-2023 Evaluation note* Encounter Date Diagnosis Assessment Notes Treatment Notes Treatment Clinical Notes Jun, Acute pain of left shoulder (ICD-10 - M25.512) Order printed for PT. Continue OTC NSAIDs as needed. Discussed appropriate dosing. 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 More energy. Got a job, not staying in as much. States she notes she is at a good level. Rx sent fro 90 days last week. Continue effexor at present dose. [facility] Other 07-31-2023 Evaluation note* Encounter Date Diagnosis Assessment Notes Treatment Notes Treatment Clinical Notes Apr, Moderate episode of recurrent major depressive disorder (ICD-10 - F33.1) [facility] Other 07-12-2023 Evaluation note* Encounter Date Diagnosis Assessment Notes Treatment Notes Treatment Clinical Notes Apr, Allergic contact dermatitis, unspecified trigger (ICD-10 - L23.9) Not certain of any new foods or triggers for this allergic reaction. Denies dyspnea or swelling in oropharynx. Agrees to motion picture camera lens technician for testing to narrow down possible cause. [facility] Other 01-25-2023 Evaluation note* Encounter Date Diagnosis [...] agrees to Ortho referral for further testing. [facility] Other 09-12-2022 Evaluation note* Encounter Date Diagnosis [...] therapy plan may need to be made. [facility] Other Evaluation noteNort [facility] Other Evaluation noteNo assessment information available [facility] Work Phone: History general Narrative - Reported* Type Description Date Medical History thyroid yst Medical History goiter Medical History bipolar Medical History hepatitis C Hospitalization History [facility] 2013 [facility] Other History general Narrative - Reported* Type Description Date Medical History thyroid yst Medical History goiter Medical History bipolar Medical History hepatitis C Surgical History LIVER BIOPSY 2019 Hospitalization History [facility] 2013 [facility] Other History general Narrative - ReportedNortImonomi Other Summary Purpose Family History No Family History Records Found Relationship Condition Age at Onset Recorded Date/T moreno father Unknown Advance Directives No Advanced Directives Records Found Advance Directive Response Recorded Date/ Time Advance Directives No February 19, 2024 10:14am Reason for Referral Reason *FU 05/07 ER visit yesterday and OV today - allergic reaction on face/lips - no known cause. Diagnosis 1 Allergic contact ha matitis, unspecified trigger (L23.9) Referral Organization [facility] [employer] felicia Referring Provider First Name Lauren Referring Provider Last Name Alice Referring Provider Specialty [facility] [employer] Referred Organization [facility] Referred Provider Adam Stiles Referred Address ,[place], [place],[address] Referred Provider Specialty Allergy/Immu nology Referral Priority Routine General Notes Noreen Zamora 02:17:19 PM >received today Noreen Zamora 04/30/2023 02:18:00 PM >notes locked, ins attached, referrl faxed Reason 12/12/22 Mitch off ice - OV, PT report, and Xray will be scanned into [facility]. Diagnosis 1 Pain in thoracic spi ne (M54.6) Referral Organization [facility] GLO [facility] felicia Referring Provider First Name Lauren Referring Provider Last Name Alice Referring Provider Specialty [facility] [email or web address] Referred Organization [facility] Referred Provider Yovany Castro Referred Address ,[place], [place],[address] Referred Provider Specialty Orthopedic S urgery Referral [...] fax that report is not signed yet Chief Complaint and Reason for Visit Chief Complaint F11.20 Chief Complaint F11.20 wellness, med questions Additional Source Comments INFORMATION SOURCE (unrecogn ized section and content) DATE CREATED AUTHOR 04/07/2018 [facility] DATE CREATED AUTHOR AUTHOR'S ORGANIZ ATION 12/15/2019 [facility] DATE CREATED AUTHOR AUTHOR'S ORGANIZ ATION 04/03/2022 [facility] DATE CREATED AUTHOR AUTHOR'S ORGANIZ ATION 10/27/2023 [facility] EPIC DATE CREATED AUTHOR AUTHOR'S ORGANIZ ATION 06/02/2024 [facility] REASON FOR VISIT (unrecogniz ed section and content) SILVER ESCAPE, COUGH, CONGES TION, SORE THRAOT, SINUSshoulder painRASHrefill1 month Follow upShoulder Painleft shoulder painCheck Up Care Teams (unrecognized sec tion and content) Team Status: Active Member Role Status Dates Lauren Jenkins MD Primary Care Provider Active Team Status: Inactive Member Role Status Dates Asia Sparks NP-C Attending Provider Active Start: February 19, 2024 End: February 19, 2024 Lauren Jenkins MD Primary Care Provider Active Start: February 19, 2024 End: February 19, 2024 Team Status: Inactive Member Role Status Dates Lauren Jenkins MD Primary Care Provide r, Attending Provider Active Start: May 03, 2024 End: May 03, 2024 Goals (unrecognized section and content) Goals may be documented in a n alternate section FOR RECORDS PERTAINING TO PATIENTS WHO ARE [...] BE BASED ON THE PRIMARY CLINICAL RECORDS. [facility] [employer] [facility] provides no warranty or guarantee of the accuracy or completeness of information in this document.
[2024-08-05 10:02] LABS: Basophils Percent Auto 0.2 % (0.2-2.0); Hemoglobin 13.1 g/dL (12.0-16.0); Immature Granulocytes Abs Auto 0.07 10^3/uL (0.00-0.03); Immature Granulocytes Pct Auto 0.6 % (0.0-0.5); Lymphocytes Absolute Auto 1.1 10^3/uL (1.2-3.8); Lymphocytes Percent Auto 8.8 % (20.5-60.0); Mean Corpuscular HGB Conc 33.6 g/dL (29.9-35.2); Mean Corpuscular Hemoglobin 30.6 pg (26.7-34.0); Mean Corpuscular Volume 91.1 fL (81.0-99.0); Monocytes Absolute Auto 0.7 10^3/uL (0.3-0.8); Monocytes Percent Auto 5.9 % (1.7-12.0); Neutrophils Absolute Auto 10.5 10^3/uL (1.4-6.5); Neutrophils Percent Auto 84.5 % (43.0-75.0); Platelet Count 253 10^3/uL (150-450); Red Blood Count 4.28 10^6/uL (4.20-5.40); Red Cell Distribution Width 12.9 % (11.0-15.0); White Blood Count 12.4 10^3/uL (4.0-11.0)
--- NOTE | 2024-08-05 10:05 | ED.GENADUL1 ---
HPI HPI - General Adult General Chief complaint: Nausea/Vomiting/Diarrhea Stated complaint: GENERAL WEAKNESS/ VOMITTING Time Seen by Provider: 08/05/24 09:28 Source: patient Mode of arrival: walk-in Limitations: no limitations History of Present Illness HPI narrative: The patient presented to us with symptoms that started this morning, she admits that she used some drugs yesterday although she does not specify if she used anything other than opiates, woke up this morning with nausea that was severe and she also noticed some coffee-ground emesis, the patient denies any pain at any time the main reason to come here with the nausea and vomiting She also denies any other complaint Related Data Home Medications ?Medication ?Instructions ?Recorded ?Confirmed cariprazine 3 mg capsule (Vraylar) 3 mg PO .QHS 08/05/24 08/05/24 hydroxyzine pamoate 50 mg capsule 50 mg PO .QHS 08/05/24 08/05/24 prazosin 1 mg capsule 2 mg PO .QHS 08/05/24 08/05/24 venlafaxine 75 mg capsule,extended 75 mg PO DAILY 08/05/24 08/05/24 release 24 hr Allergies Allergy/AdvReac Type Severity Reaction Status Date / Time No Known Drug Allergies Allergy Verified 08/05/24 09:28 Opioid HPI Opioid Management Most Recent Opioid Data: Ur Phencyclidine Scrn Negative (NEGATIVE) 08/05/24 10:54 08/05/24 Review of Systems ROS Status of ROS 10 or more systems reviewed and unremarkable except as noted in history and below Exam Narrative Exam Narrative: Nurses notes and vital signs reviewed and patient is not hypoxic. General: Well-appearing and in no apparent distress. Skin: Warm, dry, no pallor noted. No rash. Head: Normocephalic, atraumatic. Neck: Supple, non-tender. Eye: Pupils are equal, round and EOMI. No scleral icterus. Ears, Nose, Mouth, and Throat: TM are clear, no nasal mucosal hypertrophy. Oral mucosa is moist, no posterior oropharynx erythema, uvula is mid-line Cardiovascular: Regular Rate and Rhythm without murmur, gallop or rub. Respiratory: No accessory muscle use or respiratory distress. Lungs are clear to auscultation, no wheezing, rales or rhonchi Chest Wall: no tenderness Back: No midline thoracic or lumbar vertebral tenderness. No CVA tenderness Musculoskeletal: normal ROM, no calf or popliteal tenderness, no lower extremity edema/swelling GI: Abdomen is soft, non-distended. Normal bowel sounds. No masses appreciated. No tenderness to palpation. No rebound, guarding, or rigidity noted. Neurological: A&O x4. No cranial nerve dysfunction observed. No truncal ataxia. Moves all extremities. Sensation intact. Psychiatric: Cooperative and interactive. Normal mood and affect. Constitutional Vital Signs, click to edit/add: Last Vital Signs Temp 97.5 F L 08/05/24 09:21 Pulse 92 H 08/05/24 15:30 Resp 12 08/05/24 15:30 BP 106/70 08/05/24 15:30 Pulse Ox 98 08/05/24 15:30 O2 Del Method Room Air 08/05/24 09:21 Course Vital Signs Vital signs: Vital Signs Temperature 97.5 F L 08/05/24 09:21 Pulse Rate 123 H 08/05/24 09:21 Respiratory Rate 20 08/05/24 09:21 Blood Pressure 116/73 08/05/24 09:21 Pulse Oximetry 100 08/05/24 09:21 Oxygen Delivery Method Room Air 08/05/24 09:21 Temperature 97.5 F L 08/05/24 09:21 Pulse Rate 92 H 08/05/24 15:30 Respiratory Rate 12 08/05/24 15:30 Blood Pressure 106/70 08/05/24 15:30 Pulse Oximetry 98 08/05/24 15:30 Oxygen Delivery Method Room Air 08/05/24 09:21 Medical Decision Making [facility] Narrative Medical decision making narrative: The patient EKG showing sinus rhythm with a heart rate of [address] elevation or depression The patient hemoglobin was at 13 and she did had nausea and vomiting upon arrival that responded to Zofran Pepcid The patient did not have any chest pain at any time but it was noted that her troponin was elevated Chest x-ray showed no acute pathology The patient repeated troponin was elevated at 500 going up from 200 And the patient did use cocaine benzodiazepine methamphetamine and amphetamine as well yesterday The patient case was discussed with the funeral home makeup artist on-call , he initially agreed that the right now we can hold the heparin until repeat the troponin third time The plan also to transfer the patient where there is a GI and cardiology service--- the patient case was discussed initially with [facility] but they requested the patient to be transferred to a tertiary center in addition to [facility] had no availability for bed The patient case was called to be transferred to [facility]--- patient case was called again to and that troponin is still rising up and the patient hemoglobin is stable after 6 hours 12.8 The patient right now will have heparin started as per approved by the funeral home makeup artist after the hemoglobin was found to be within normal The patient will be transferred to [facility] in [facility] Lab Data Labs: Lab Results 08/05/24 08/05/24 08/05/24 Range/Units 09:36 10:54 11:21 WBC 12.4 H (4.0-11.0) 10^3/uL RBC 4.28 (4.20-5.40) 10^6/uL Hgb 13.1 (12.0-16.0) g/dL Hct 39.0 (36.0-48.0) % MCV 91.1 (81.0-99.0) fL MCH 30.6 (26.7-34.0) pg MCHC 33.6 (29.9-35.2) g/dL RDW 12.9 (11.0-15.0) % Plt Count 253 (150-450) 10^3/uL MPV 10.0 (9.5-13.5) fL Neut % (Auto) 84.5 H (43.0-75.0) % Lymph % (Auto) 8.8 L (20.5-60.0) % [place] % (Auto) 5.9 (1.7-12.0) % Eos % (Auto) 0.0 L (0.9-7.0) % Baso % (Auto) 0.2 (0.2-2.0) % Neut # (Auto) 10.5 H (1.4-6.5) 10^3/uL Lymph # (Auto) 1.1 L (1.2-3.8) 10^3/uL [place] # (Auto) 0.7 (0.3-0.8) 10^3/uL Eos # (Auto) 0.0 (0.0-0.7) 10^3/uL Baso # (Auto) 0.0 (0.0-0.1) 10^3/uL Abs Immat Gran (auto) 0.07 H (0.00-0.03) 10^3/uL Imm/Tot Granulo (auto) 0.6 H (0.0-0.5) % Sodium 141 (136-145) mmol/L Potassium 3.7 (3.5-5.1) mmol/L Chloride 104 (98-107) mmol/L Carbon Dioxide 25.7 (21.0-32.0) mmol/L Anion Gap 15.0 BUN 14.0 (7.0-18.0) mg/dL Creatinine 0.96 (0.55-1.02) mg/dL Est GFR ( Amer) >60 (>=60 mL/min/1.73m^2) Est GFR (Non-Af Amer) >60 (>=60 mL/min/1.73m^2) BUN/Creatinine Ratio 14.6 Glucose 94 (74-106) mg/dL Lactate 2.3 H* (0.4-2.0) mmol/L Calcium 8.7 (8.5-10.1) mg/dL Total Bilirubin 0.2 (0.2-1.0) mg/dL AST 18 (15-37) U/L ALT 20 (14-59) U/L Alkaline Phosphatase 53 (46-116) U/L Troponin I High Sens 297.5 H* 537.9 H* (4.0-51.3) pg/mL Total Protein 7.4 (6.4-8.2) g/dL Albumin 3.7 (3.4-5.0) g/dL Globulin 3.7 g/dL Albumin/Globulin Ratio 1.0 Lipase 31.0 (16.0-77.0) U/L Serum HCG, Qual Negative (NEGATIVE) Urine Opiates Screen Negative (NEGATIVE) Ur Buprenorphine Scrn Negative (NEGATIVE) Ur Oxycodone Screen Negative (NEGATIVE) Urine Methadone Screen Negative (NEGATIVE) Ur Barbiturates Screen Negative (NEGATIVE) U Tricyclic Antidepress Negative (NEGATIVE) Ur Phencyclidine Scrn Negative (NEGATIVE) Ur Amphetamines Screen Positive A (NEGATIVE) U Methamphetamines Scrn Positive A (NEGATIVE) U Benzodiazepines Scrn Positive A (NEGATIVE) Urine Cocaine Screen Positive A (NEGATIVE) U Cannabinoids Screen Positive A (NEGATIVE) Ethanol Quant <3 mg/dL Blood Type AB Positive Antibody Screen Negative 08/05/24 08/05/24 08/05/24 Range/Units 12:57 13:49 15:30 WBC (4.0-11.0) 10^3/uL RBC (4.20-5.40) 10^6/uL Hgb 12.8 (12.0-16.0) g/dL Hct 38.4 (36.0-48.0) % MCV (81.0-99.0) fL MCH (26.7-34.0) pg MCHC (29.9-35.2) g/dL RDW (11.0-15.0) % Plt Count (150-450) 10^3/uL MPV (9.5-13.5) fL Neut % (Auto) (43.0-75.0) % Lymph % (Auto) (20.5-60.0) % [place] % (Auto) (1.7-12.0) % Eos % (Auto) (0.9-7.0) % Baso % (Auto) (0.2-2.0) % Neut # (Auto) (1.4-6.5) 10^3/uL Lymph # (Auto) (1.2-3.8) 10^3/uL [place] # (Auto) (0.3-0.8) 10^3/uL Eos # (Auto) (0.0-0.7) 10^3/uL Baso # (Auto) (0.0-0.1) 10^3/uL Abs Immat Gran (auto) (0.00-0.03) 10^3/uL Imm/Tot Granulo (auto) (0.0-0.5) % Sodium (136-145) mmol/L Potassium (3.5-5.1) mmol/L Chloride (98-107) mmol/L Carbon Dioxide (21.0-32.0) mmol/L Anion Gap BUN (7.0-18.0) mg/dL Creatinine (0.55-1.02) mg/dL Est GFR ( Amer) (>=60 mL/min/1.73m^2) Est GFR (Non-Af Amer) (>=60 mL/min/1.73m^2) BUN/Creatinine Ratio Glucose (74-106) mg/dL Lactate 2.4 H* (0.4-2.0) mmol/L Calcium (8.5-10.1) mg/dL Total Bilirubin (0.2-1.0) mg/dL AST (15-37) U/L ALT (14-59) U/L Alkaline Phosphatase (46-116) U/L Troponin I High Sens 759.4 H* (4.0-51.3) pg/mL Total Protein (6.4-8.2) g/dL Albumin (3.4-5.0) g/dL Globulin g/dL Albumin/Globulin Ratio Lipase (16.0-77.0) U/L Serum HCG, Qual (NEGATIVE) Urine Opiates Screen (NEGATIVE) Ur Buprenorphine Scrn (NEGATIVE) Ur Oxycodone Screen (NEGATIVE) Urine Methadone Screen (NEGATIVE) Ur Barbiturates Screen (NEGATIVE) U Tricyclic Antidepress (NEGATIVE) Ur Phencyclidine Scrn (NEGATIVE) Ur Amphetamines Screen (NEGATIVE) U Methamphetamines Scrn (NEGATIVE) U Benzodiazepines Scrn (NEGATIVE) Urine Cocaine Screen (NEGATIVE) U Cannabinoids Screen (NEGATIVE) Ethanol Quant mg/dL Blood Type Antibody Screen Discharge Plan Discharge Chief Complaint: Nausea/Vomiting/Diarrhea Clinical Impression: Acute non-ST elevation myocardial infarction (NSTEMI), Adverse effect of cocaine, Coffee ground emesis Patient Disposition: [facility] Time of Disposition Decision: 16:05 Discharge location: [facility] ---DR BOONE
[2024-08-05 10:16] LABS: HCG Qualitative NEGATIVE (NEGATIVE); Internal Control Within Normal Limits
[2024-08-05 10:17] LABS: Ethanol <3 mg/dL
[2024-08-05] MEDS: 0.9 % SODIUM CHLORIDE 1,000 ML 1000 ML IV (10:17)
[2024-08-05] MEDS: FAMOTIDINE/PF 20 MG/2 ML VIAL IV (10:17)
[2024-08-05] MEDS: ONDANSETRON PF 4 MG/2 ML VIAL IV (10:17)
[2024-08-05 10:22] LABS: Alanine Aminotransferase 20 U/L (14-59); Albumin Level 3.7 g/dL (3.4-5.0); Alkaline Phosphatase 53 U/L (46-116); Aspartate Amino Transferase 18 U/L (15-37); BUN Creatinine Ratio 14.6; Bilirubin Total 0.2 mg/dL (0.2-1.0); Calcium 8.7 mg/dL (8.5-10.1); Carbon Dioxide 25.7 mmol/L (21.0-32.0); Chloride 104 mmol/L (98-107); Estimated GFR (African America >60 (>=60 mL/min/1.73m^2); Estimated GFR (Non-African Ame >60 (>=60 mL/min/1.73m^2); Globulin 3.7 g/dL; Glucose 94 mg/dL (74-106); Potassium 3.7 mmol/L (3.5-5.1); Sodium 141 mmol/L (136-145); Total Protein 7.4 g/dL (6.4-8.2)
[2024-08-05 10:30] LABS: Troponin I High Sensitivity 297.5 pg/mL (4.0-51.3)
[2024-08-05 11:07] LABS: Lactate/Lactic Acid 2.3 mmol/L (0.4-2.0)
[2024-08-05 11:39] LABS: Amphetamine Screen Urine POSITIVE (NEGATIVE); Barbiturates Screen Urine NEGATIVE (NEGATIVE); Benzodiazepines Screen Urine POSITIVE (NEGATIVE); Buprenorphine Screen Urine NEGATIVE (NEGATIVE); Cannabinoid Screen Urine POSITIVE (NEGATIVE); Cocaine Screen Urine POSITIVE (NEGATIVE); Methadone Screen Urine NEGATIVE (NEGATIVE); Methamphetamines Screen Urine POSITIVE (NEGATIVE); Opiate Screen Urine NEGATIVE (NEGATIVE); Oxycodone Screen Urine NEGATIVE (NEGATIVE); Phencyclidine Screen Urine NEGATIVE (NEGATIVE); Tricyclic Antidepressant Urine NEGATIVE (NEGATIVE)
[2024-08-05 11:54] LABS: Troponin I High Sensitivity 537.9 pg/mL (4.0-51.3)
--- NOTE | 2024-08-05 12:02 | ECG_ITS ---
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
[2024-08-05] MEDS: PANTOPRAZOLE SODIUM 40 MG VIAL IV (12:21)
[2024-08-05] MEDS: ASPIRIN 81 MG TAB.CHEW 324 MG PO (12:21)
[2024-08-05] MEDS: NITROGLYCERIN 0.4 MG BOTTLE SL (12:21)
[2024-08-05 13:44] LABS: Lactate/Lactic Acid 2.4 mmol/L (0.4-2.0)
[2024-08-05 14:15] LABS: Troponin I High Sensitivity 759.4 pg/mL (4.0-51.3)
[2024-08-05 15:36] LABS: Hematocrit 38.4 % (36.0-48.0); Hemoglobin 12.8 g/dL (12.0-16.0)
[2024-08-05] MEDS: HEPARIN SODIUM (PORCINE) 5,000 UNIT/ML VIAL 3700 UNIT IV (16:39)
[2024-08-05] MEDS: HEPARIN SODIUM,PORCINE/D5W 25,000 UNIT/500 ML IV.SOLN 15 UNIT IV (16:41)
== END 2024-08-05 19:03 | disposition short-term general hospital (02) ==
PROVIDERS: Emergency Provider Emergency Medicine; PCP Family Medicine
DX: I21.4 Non-ST elevation (NSTEMI) myocardial infarction (principal); R11.2 Nausea with vomiting, unspecified; F14.988 Cocaine use, unspecified with other cocaine-induced disorder; Z79.899 Other long term (current) drug therapy
CPT/HCPCS: 36415; 71045; 80053; 80307; 80320; 83605; 83690; 84484; 84703; 85014; 85018; 85025; 85730; 86850; 86900; 86901; 93005; 96361; 96365; 96366; 96375; 96376; 99285; J1644; J2405

== ENCOUNTER 2025-06-30 08:35 | Outpatient (REF) | payer BC, SELFPAY ==
--- OUTSIDE RECORDS SUMMARY | 2025-06-30 16:18 | XMS_ITS | CCD ---
Author Organization [facility] Care Team Providers Care Thread Grinder Tool Name Role Phone PHYSICIAN, DEFAULT Unavailable Unavailable PHYSICIAN, DEFAULT Unavailable Unavailable ALICE, DR JUANJOSE Sweet Admitting Unavailable JENKINS, DR JUANJOSE Sweet Attending Unavailable JENKINS, DR JUANJOSE Sweet Primary Care Unavailable WEST, DR ABDULAZIZ Valdez Consulting Unavailable JENKINS, DR JUANJOSE Sweet Consulting Unavailable MISC, DR SANCHEZ Primary Care Unavailable MARKER, DR ROSALES Admitting Unavailable MARKER, DR ROSALES Attending Unavailable MARKER, DR ROSALES Consulting Unavailable ISSAC, AYDEE Admitting Unavailable ISSAC, AYDEE Attending Unavailable JENKINS, DR JUANJOSE Sweet Primary Care Unavailable WILL, DR SILVERMAN Admitting Unavailable WILL, DR SILVERMAN Attending Unavailable MISC, DR SANCHEZ Primary Care Unavailable WILL, DR SILVERMAN Consulting Unavailable WLIL, DR SILVERMAN Admitting Unavailable WILL, DR SILVERMAN Attending Unavailable MISC, DR SANCHEZ Primary Care Unavailable WILL, DR SILVERMAN Consulting Unavailable BROWN, ABDULAZIZ Consulting Unavailable Becky Leslie Unavailable Juanjose Jenkins Unavailable LASHANDA Sparks Attending Provider MD Juanjose Jenkins Primary Care Provider DIAB, JOAQUIN Referring Unavailable MELY, HAMPTON Admitting Unavailable WHEELER, SANDRA Attending Unavailable SIMI KERR Referring Unavailable WHEELER, SANDRA Referring Unavailable WHEELER, SANDRA Referring Unavailable Juanjose Jenkins MD Primary Care Provider [phone] Isaac Sampson MD Attending Provider [phone] Juanjose Jenkins MD Attending Provider [phone] Juanjose Jenkins MD Primary Care Provider REGINA HERNANDEZ Attending Unavailable Isaac Sampson Attending Unavailab Isaac Lyman Admitting Unavailab Juanjose Duong Primary Care Unavailable Allergies Allergy Classification Reported Allergen(s) Allergy Type Date of Onset Reaction(s) Facility (1 source) Amoxicillin Drug Allergy [facility] Repository (10 sources) ceftibuten Drug Allergy 05-26-20 13 Unknown [facility] Repository (14 sources) ceftibuten; Translations: [ceftibuten] Drug Allergy 11-19-19 24 Unknown, Hives [facility] Repository (1 source) Allergies Reconciled Propensity to adverse reactions Unknown [facility] [employer] Other (5 sources) Medicinal cephalosporin and acting as antibacterial agent (FN) Drug allergy 10-20-19 Unknown [facility] [employer] Other (5 sources) Cephalosporins (Antibiotic); Translations: [cephalosporins] Allergy to substance 11-19-19 [facility] Comment on above: Onset Date: 10/20/19 (1 source) ALLERGIES NOT ON FILE; Translations: [ALLERGIES NOT ON FILE] Propensity to adverse reactions (disorder) [facility] Repository (1 source) Fluconazole; Translations: [fluconazole] Drug Allergy [facility] Repository (6 sources) Amoxicillin Drug Allergy 08-12-20 23 [facility] Work Phone: (6 sources) Ceftibuten Allergy to substance 08-12-20 [facility] Healthcare (6 sources) Nitrofurantoin Drug Allergy 09-01-20 23 [facility] (1 source) ceftibuten Drug Allergy 05-26-[address] [facility] Repository Medications Current Medications Medication Drug Class(es) Dates Sig (Normalized) Sig (Original) cariprazine 1.5 mg oral capsule (4 sources) Atypical Antipsychotic Start: 05-03-2024 End: 05-03-2024 take 1 capsule by mouth once daily doxycycline hyclate 100 mg oral capsule (4 sources) Tetracycline-class Drug Start: 06-30-2025 End: 07-07-2025 doxycycline (Vibramycin) 100 MG capsule Indications: Pelvic pain in female Take 1 capsule (100 mg) by mouth in the morning and 1 capsule (100 mg) before bedtime. Do all this for 7 days. Take with at least 8 ounces (large glass) of water, do not lie down for 30 minutes after. 14 capsule 06/30/2025 07/07/2025 Active Start: 06-06-2025 End: 06-13-2025 doxycycline (Vibramycin) 100 MG capsule Indications: Pelvic pain in female Take 1 capsule (100 mg) by mouth in the morning and 1 capsule (100 mg) before bedtime. Do all this for 7 days. Take with at least 8 ounces (large glass) of water, do not lie down for 30 minutes after. 14 capsule 06/06/2025 06/13/2025 Active etonogestrel 68 mg drug implant (6 sources) Progestin etonogestrel-elu ting (Nexplanon) 68 mg contraceptive implant 1 each by Subdermal route 1 (one) time. Active hydrOXYzine pamoate 50 mg oral capsule (5 sources) Antihistamine Start : 05-03 End: 07-02 take 1 capsule by mouth once daily at bedtime methylPREDNISolone 4 mg oral tablet (9 sources) Corticosteroid Start : 07-01 take 4 mg by mouth once daily prazosin 1 mg oral capsule (4 sources) alpha-Adrenergic Tano Start : 05-03 End: 05-03 take 1 capsule by mouth once daily at bedtime Start: 05-03-2024 End: 05-03-2024 take 2 mg by mouth once daily at bedtime Prazosin Active 2 MG PO Daily at bedtime 60 May 03, 2024 3:06pm valACYclovir 500 mg oral tablet (12 sources) Herpesvirus Nucleoside Analog DNA Polymerase Inhibitor, Herpes Simplex Virus Nucleoside Analog DNA Polymerase Inhibitor, Herpes Zoster Virus Nucleoside Analog DNA Polymerase Inhibitor Start: 11-15-2024 End: 06-06-2025 valACYclovir (Valtrex) 500 MG tablet Indications: STD exposure Pt to take one tablet twice a day for 10 days and then daily thereafter 40 tablet 1 06/06/2025 Active Start: 04-30-2024 End: 05-03-2024 take 1 tablet [...] once a day Active 24 hr venlafaxine 75 mg extended release oral capsule (18 sources) Serotonin and Norepinephrine Reuptake Inhibitor Start: 04-30-2024 End: 08-09-2024 take 1 capsule by mouth once daily Start: 05-29-2023 End: 06-30-2025 take 1 capsule by mouth every twenty-four hours in the morning venlafaxine XR (Effexor XR) 37.5 MG 24 hr capsule Take 37.5 mg by mouth in the morning. 05/29/2023 06/30/2025 Discontinued take 1 capsule by mo [facility] every twenty-four hours Venlafaxine HCl ER 75 [...] Not-Taking naltrexone hydrochloride 50 mg oral tablet (3 sources) Opioid Antagonist Start: 04-30-2024 End: 05-03-2024 take 1 tablet by mouth once daily Naltrexone 50 mg tablet Discontinued 1 TAB PO Daily April 30, [...] Active Problems Problem Classification Problem Date Documented Da te Episodic/Chronic Abdominal pain (3 sources) Pain in female pelvis; Translations: [Pelvic and perineal pain] 06-06-2025 Episodic Acute myocardial infarction (2 sources) Non-ST elevation (NSTEMI) myocardial infarction; Translations: [Non-ST elevation (NSTEMI) myocardial infarction] Onset: 08-05-2024 Chronic Allergic reactions (1 source) Allergic contact dermatitis, unspecified cause Episodic Anxiety disorders (2 sources) Anxiety disorder, unspecified; Translations: [Anxiety disorder, unspecified] Onset: 08-05-2024 Chronic Chronic obstructive pulmonary disease and bronchiectasis (2 sources) Bronchitis; Translations: [Bronchitis, not specified as acute or chronic] Episodic Contraceptive and procreative management (4 sources) Initiation of transdermal contraception; Translations: [Encounter for initial prescription of implantable subdermal contraceptive] Episodic Gastrointestinal hemorrhage (2 sources) Hematemesis; Translations: [Hematemesis] Onset: 08-05-2024 Episodic Genitourinary symptoms and ill-defined conditions (6 sources) Dysuria; Translations: [Dysuria] 05-27-2025 Episodic Hepatitis (2 sources) Viral hepatitis C; Translations: [Unspecified viral hepatitis C without hepatic coma] Episodic Immunizations and screening for infectious disease (3 sources) Encounter for screening for human papillomavirus (HPV); Translations: [Exposure to sexually transmissible disorder] Onset: 07-23-2021 06-06-2025 Episodic Inflammatory diseases of female pelvic organs (2 sources) Cervicitis and endocervicitis; Translations: [Inflammatory disease of cervix uteri] Episodic Mood disorders (18 sources) Recurrent major depressive episodes, moderate ; Translations: [Major depressive disorder, recurrent, moderate] Chronic Mood disorders (2 sources) Mood disorders; Translations: [Depression, unspecified] Onset: 08-05-2024 Other complications of (2 sources) High risk [...] liver; Translations: [Liver disease, unspecified] Chronic Other lower respiratory disease (2 sources) Hemoptysis; Translations: [Hemoptysis] Onset: 08-05-2024 Episodic Other nervous system disorders (8 sources) Chronic [...] conditions (not mental disorders or infectious disease) (14 sources) Thyroid function tests abnormal; Translations: [Abnormal results of thyroid function studies] Onset: 08-05-2024 Episodic Other upper respiratory disease (9 sources) [...] Cannabis abuse; Translations: [Cannabis abuse, uncomplicated] Chronic Substance-related disorders (1 source) Other psychoactive substance use, unspecified, uncomplicated Episodic Thyroid disorders (19 sources) Non-toxic nodular goiter; Translations: [Nontoxic goiter, unspecified] 05-03-2024 Chronic Unclassified (1 source) Contact with and (suspected) exposure to covid-19; Translations: [Contact with and (suspected) exposure to covid-19] Urinary tract infections (2 sources) Urinary tract infectious disease; Translations: [Urinary tract infection, site not specified] Episodic Past or Other Problems Problem Classification Problem Date Documented Da te Episodic/Chronic Administrative/social admission (4 sources) Encounter for examination and observation for other specified reasons; Translations: [ENCNTER EXAM AND OBS OTH REASONS] Onset: 2021 Episodic Hemorrhage during ; abruptio placenta; placenta previa (2 sources) Placenta previa without hemorrhage; Translations: [Low lying placenta NOS or without hemorrhage, unspecified trimester] Resolved: 07-12-2016 Episodic Mycoses (2 sources) Candidiasis; Translations: [Candidiasis, [...] Test Name Value Interpretation Reference Range Facility RECURRENT VAGINITIS (HTRX)on 06-07-2025 ATOPOBIUM VAGINAE 0 [facility] ATOPOBIUM VAGINAE Not detected [facility] BVAB 2,3 (BACTERIAL VAGINOSIS ASSOCIATED BACTERIA 2, 3); MOBILUNCUS SPP 0 [facility] BVAB 2,3 (BACTERIAL VAGINOSIS ASSOCIATED BACTERIA 2, 3); MOBILUNCUS SPP Not detected [facility] CHRIS ALBICANS, PARAPSILOSIS, TROPICALIS 0 [facility] CHRIS ALBICANS, PARAPSILOSIS, TROPICALIS Not detected [facility] CHRIS GLABRATA 0 [facility] CHRIS GLABRATA Not detected [facility] CHRIS KRUSEI 0 [facility] CHRIS KRUSEI Not detected [facility] CHLAMYDIA TRACHOMATIS 0 NOM [facility] CHLAMYDIA TRACHOMATIS Not detected N [facility] GARDNERELLA VAGINALIS 0 NOM S [facility] GARDNERELLA VAGINALIS Not detected N [facility] MEGASPHAERA (TYPES 1, 2) 0 [facility] MEGASPHAERA (TYPES 1, 2) Not detected [facility] MYCOPLASMA GENITALIUM 0 NOM S [facility] MYCOPLASMA GENITALIUM Not detected N [facility] NEISSERIA GONORRHOEAE 0 NOM S [facility] NEISSERIA GONORRHOEAE Not detected N [facility] TRICHOMONAS VAGINALIS 0 NOM S [facility] TRICHOMONAS VAGINALIS Not detected N [facility] HCG ( test) Ql (U)o n 06-06-2025 Interpretation and review of laboratory results Normal [facility] Preg Test, Ur Negative Negative [facility] Urinalysis macro (dipstick) panel (U)on 06-06-2025 Bilirubin, UA Negative Negative - 4(70) +++ mg/dL [facility] Blood, UA Positive Negative - 50 Carlos Enrique/mcL [facility] Comment on above: Trace Clarity, UA Clear [facility] Color, UA Yellow [facility] Glucose, UA Negative Negative - 2000(110) ++++ mg/dL [facility] Interpretation and review of laboratory results Abnormal [facility] Ketones, UA Negative Negative - 160(16) ++++ mg/dL [facility] Leukocytes, UA Negative Negative - 500+++ Kaden/mcL [facility] Nitrite, UA Negative Negative - Positive [facility] pH, UA 6 5 - 9 [facility] Protein, UA Negative Negative - 2000(20) ++++ mg/dL [facility] Spec Grav, UA 1.01 1 - 1.03 [facility] Urobilinogen, UA 0.2 0.2 - 12 mg/dL [facility] 30on 08-07-2024 30 The patient is Moderately Stable - Low risk of patient condition declining or worsening The patient's goals for the shift include get test done The clinical goals for the shift include vss Over the shift, the patient did not make progress toward the following goals. Barriers to progression include . Recommendations to address these barriers include . Normal [facility] 30 The patient is Moderately Stable - Low risk of patient condition declining or worsening The patient's goals for the shift include get test done The clinical goals for the shift include vss Over the shift, the patient did not make progress toward the following goals. Barriers to progression include . Recommendations to address these barriers include Problem: Pain - Adult Goal: Verbalizes/displays adequate comfort level or baseline comfort level Outcome: Progressing Problem: Safety - Adult Goal: Free from fall injury Outcome: Progressing Problem: Discharge Planning Goal: Discharge to home or other facility with appropriate resources Outcome: Progressing Problem: Chronic Conditions and Co-morbidities Goal: Patient's chronic conditions and co-morbidity symptoms are monitored and maintained or improved Outcome: Progressing Problem: Cardiovascular - Adult Goal: Maintains optimal cardiac output and hemodynamic stability Outcome: Progressing Goal: Absence of cardiac dysrhythmias or at baseline Outcome: Progressing . Normal [facility] 30 The patient is Moderately Stable - Low risk of patient condition declining or worsening The patient's goals for the shift include d/c The clinical goals for the shift include vss Normal [facility] CBCon 08-07-2024 Erythrocyte distribution width (RBC) [Ratio] 12.8 % Normal 11.5-15.0 [facility] Comment on above: Performed By: #### L [id number] #### [facility] ([facility]) [address] [place] [address] ERYTHROCYTE MEAN CORPUSCULAR HEMOGLOBIN CONCENTRATION (G/DL) BY AUTOMATED 32.5 g/dL Normal 32.0-35.0 [facility] Comment on above: Performed By: #### L [id number] #### [facility] ([facility]) [address] [place] [address] Hematocrit (Bld) [Volume fraction] 38.2 % Normal 36.0-48.0 [facility] Comment on above: Performed By: #### L [id number] #### [facility] ([facility]) [address] [place] [address] Hemoglobin (Bld) [Mass/Vol] 12.4 g/dL Normal 12.0-15.0 [facility] Comment on above: Performed By: #### L [id number] #### [facility] ([facility] [address] [place] [address] MCH (RBC) [Entitic mass] 30.0 pg Normal 27.0-33.0 [facility] Comment on above: Performed By: #### L [id number] #### [facility] ([facility]) [address] [place] [address] MCV (RBC) [Entitic vol] 92.3 fL Normal 82.0-98.0 [facility] Comment on above: Performed By: #### L [id number] #### [facility] ([facility]) [address] [place] [address] PLATELETS (10*3/UL) IN BLOOD AUTOMATED COUNT 256 10*3/uL Normal 150-400 [facility] Comment on above: Performed By: #### L [id number] #### [facility] ([facility]) [address] [place] [address] RBC (Bld) [#/Vol] 4.14 10*6/uL Normal 3.80-5.00 [facility] Comment on above: Performed By: #### L [id number] #### [facility] ([facility]) [address] [place] [address] WBC (Bld) [#/Vol] 7.03 10*3/uL Normal 4.00-10.60 [facility] Comment on above: Performed By: #### L [id number] #### [facility] ([facility]) [address] [place] [address] 30on 08-06-2024 30 Daily Case Managemen t Update Multidisciplinary rounds have been completed. Barriers to Discharge: Pending clinical course; NSTEMI; cardiology planning for cardiac cath on Friday; PPI; GI consult, planning for EGD and heart cath on Friday. Diet: Dietary Orders (From admission, onward) Start Ordered 08/09/24 0001 Diet NPO Diet effective midnight Comments: Sips with medications Question: Reason for NPO: Answer: Operation/Procedure 08/06/24 1522 08/06/24 1552 Regular Diet Diet effective now Question: Room Service? Answer: Yes 08/06/24 1551 Physician Expected Discharge Date: 08/08/2024 PT Six Click Score: 24 OT Six Click Score: New Consults: Consult Orders (From admission, onward) Start Ordered 08/06/24 0512 Inpatient consult to Psychiatry Once Specialty: Psychiatry Provider: (Not yet assigned) Question Answer Comment [facility] PSYCHIATRY TEAM Reason for Consult? anxiety, depression, multisubstance use/abuse Level of Consultation Consultation and Management 08/06/24 0511 08/06/24 0511 Inpatient Consult to Addiciton Medicine Once Provider: (Not yet assigned) Question Answer Comment Consulting Group PSYCHIATRY TEAM Reason for Consult? drug use/abuse Level of Consultation Consultation and Management 08/06/24 0511 Normal [facility] 30 The patient is Moderately Stable - Low risk of patient condition declining or worsening The patient's goals for the shift include discharge The clinical goals for the shift include vss Over the shift, the patient did not make progress toward the following goals. Barriers to progression include . Recommendations to address these barriers include Problem: Pain - Adult Goal: Verbalizes/displays adequate comfort level or baseline comfort level Outcome: Progressing Problem: Safety - Adult Goal: Free from fall injury Outcome: Progressing Problem: Discharge Planning Goal: Discharge to home or other facility with appropriate resources Outcome: Progressing Problem: Chronic Conditions and Co-morbidities Goal: Patient's chronic conditions and co-morbidity symptoms are monitored and maintained or improved Outcome: Progressing Problem: Cardiovascular - Adult Goal: Maintains optimal cardiac output and hemodynamic stability Outcome: Progressing Goal: Absence of cardiac dysrhythmias or at baseline Outcome: Progressing . Normal [facility] ANTI-XA (HEPARIN LEVEL)on HEPARIN UNFRACTIONATED (U/ML) IN PPP BY CHROMOGENIC METHOD 0.34 IU/mL Normal 0.3-0.7 [facility] Comment on above: Order Comment: Check anti-Xa level every 6 hours while on heparin infusion, or per protocol. Result Comment: [place] roxaban and Apixaban will interfere with the anti Xa assay used to monitor UFH and LMWH. Performed By: #### L [id number] #### [facility] ([facility]) [address] [place] [address] HEPARIN UNFRACTIONATED (U/ML) IN PPP BY CHROMOGENIC METHOD 0.26 IU/mL Low 0.3-0.7 [facility] Comment on above: Order Comment: D-Dim er values of less than 0.50 ug/ml (FEU) are considered to be a negative predictor of thrombosis. However, the D-Dimer result should be used in conjunction with pretest probability and should not be used alone to diagnose a thrombotic event. Result Comment: [place] roxaban and Apixaban will interfere with the anti Xa assay used to monitor UFH and LMWH. Performed By: #### L [id number] #### [facility] ([facility]) [address] [place] [address] CBCon 08-06-2024 Erythrocyte distribution width (RBC) [Ratio] 13.0 % Normal 11.5-15.0 [facility] Comment on above: Performed By: #### L [id number] #### [facility] ([facility]) [address] [place] [address] ERYTHROCYTE MEAN CORPUSCULAR HEMOGLOBIN CONCENTRATION (G/DL) BY AUTOMATED 32.2 g/dL Normal 32.0-35.0 [facility] Comment on above: Performed By: #### L [id number] #### [facility] ([facility]) [address] [place] [address] Hematocrit (Bld) [Volume fraction] 35.7 % Low 36.0-48.0 [facility] Comment on above: Performed By: #### L [id number] #### [facility] ([facility]) [address] [place] [address] Hemoglobin (Bld) [Mass/Vol] 11.5 g/dL Low 12.0-15.0 [facility] Comment on above: Performed By: #### L [id number] #### [facility] ([facility]) [address] [place] [address] MCH (RBC) [Entitic mass] 30.2 pg Normal 27.0-33.0 [facility] Comment on above: Performed By: #### L [id number] #### [facility] ([facility]) [address] [place] [address] MCV (RBC) [Entitic vol] 93.7 fL Normal 82.0-98.0 [facility] Comment on above: Performed By: #### L [id number] #### [facility] ([facility]) [address] [place] [address] PLATELETS (10*3/UL) IN BLOOD AUTOMATED COUNT 238 10*3/uL Normal 150-400 [facility] Comment on above: Performed By: #### L [id number] #### [facility] ([facility] [address] [place] [address] RBC (Bld) [#/Vol] 3.81 10*6/uL Normal 3.80-5.00 [facility] Comment on above: Performed By: #### L [id number] #### [facility] ([facility]) [address] [place] [address] WBC (Bld) [#/Vol] 8.85 10*3/uL Normal 4.00-10.60 [facility] Comment on above: Performed By: #### L [id number] #### [facility] ([facility]) [address] [place] [address] CONSULTon 08-06-2024 CONSULT - Attestation signed by Kathy Castrejon MD at 08/08/2024 12:24 PM The patient was seen and examined on August 07, 2024. Agree with the GI fellow's assessment and plan. Epigastric abdominal pain with questionable coffee-ground emesis. The patient was started on PPI. The patient is feeling well. She was started on diet that she tolerated. The plan is to discharge the patient from the hospital and follow-up as an outpatient. Initial Gastroenterology/Hepa tology Consultation Note IDENTIFYING DATA PATIENT: Tracey Wallace ADMIT DATE: 08/05/2024 TIME OF EVALUATION: 08/06/2024 3:23 PM Reason for Consult: coffee ground emesis prior to admission, GI clearance prior to cath next week Admitting Physician: Sandra Wheeler MD HISTORY OF PRESENT ILLNESS Tracey Wallace is a 24 y.o. female past medical history of polysubstance use disorder, MARY LOU, and depression who presented to the hospital in the setting of chest pain after recent drug binge. Patient reports that a few days ago, she snorted some cocaine and multiple other drugs and subsequently developed substernal chest pain. She reports that she had 1 episode of coffee-ground emesis and since then has not had any further episodes. She denies any melena, hematochezia, or any further hematemesis. She denies any NSAID use, antiplatelet use, or blood thinners. Due to continued chest discomfort, she presented to an outside facility and was found to have an elevated troponin concerning for an NSTEMI. She was transferred to [facility] for further evaluation. On arrival to the hospital, labs were notable for troponin of 0.34-> 0.27 -> 0.24, globin of 11.5, platelets 238, D-dimer of 2.05, and urine tox panel positive for amphetamines. Chest x-ray was obtained which demonstrated no acute cardiopulmonary process. She was evaluated by cardiology who recommended heart catheterization on Friday with GI clearance prior to proceeding with heart catheterization GI HISTORY SUMMARY TABLE Last EGD Last colonoscopy Primary GI physician PAST MEDICAL, SURGICAL, FAMILY, and SOCIAL HISTORY Past Medical History: Past Medical History: Diagnosis Date Anxiety Past Surgical History: History reviewed. No pertinent surgical history. Family History: No family history on file. Social History: Social History Tobacco Use Smoking status: Some Days Years: 3 Types: Cigarettes Smokeless tobacco: Current Types: Snuff Vaping Use Vaping Use: Every day Substances: Nicotine Devices: Disposable Substance Use Topics Alcohol use: Not Currently Drug use: Yes Types: Cocaine, Marijuana, Oxycodone Allergies: Not on File MEDICATIONS Home Medications: Prior to Admission medications Medication Sig Start Date End Date Taking? Authorizing Provider venlafaxine (Effexor) 50 mg tablet Take 50 mg by mouth 1 (one) time. Historical Provider, Current Medications: [Held by provider] aspirin, 81 mg, oral, Daily atorvastatin, 10 mg, oral, Nightly [Held by provider] lisinopril, 2.5 mg, oral, Daily [Held by provider] metoprolol tartrate, 25 mg, oral, BID Oxygen Therapy, , inhalation, Continuous pantoprazole, 40 mg, intravenous, Daily before breakfast Or pantoprazole, 40 mg, oral, Daily before breakfast [START ON 08/07/2024] venlafaxine XR, 75 mg, oral, Daily with breakfast PRNs: diphenhydrAMINE, 25 mg, q6h PRN nitroglycerin, 0.4 mg, q5 min PRN sodium chloride, 10 mL, q8h PRN REVIEW OF SYSTEMS As per HPI OBJECTIVE DATA Vitals: BP 121/77 Pulse 67 Temp 37.3 ???C (99.1 ???F) (Temporal) Resp 14 Ht 1.575 m (5' 2 ) Wt 81.6 kg (180 lb) SpO2 100% BMI 32.92 kg/m??? GEN: Alert and oriented x3, NAD HEENT: Atraumatic, normocephalic CV: Regular rate and rhythm PULM: Breathing comfortably ABD: Soft, non-tender, non-distended NEURO: Moves all 4 extremities spontaneously LABS AND IMAGING CBC: Results from last 7 days Lab Units 08/06/24 0343 08/05/24 2143 WBC AUTO 10*3/uL 8.85 11.06* RBC AUTO 10*6/uL 3.81 3.86 HEMOGLOBIN g/dL 11.5* 11.9* HEMATOCRIT % 35.7* 35.3* MCV fL 93.7 91.5 RDW % 13.0 12.9 PLATELETS AUTO 10*3/uL 238 278 PT/INR Results from last 7 days Lab Units 08/05/24 2144 PROTIME Seconds 13.4 INR 1.02 BMP: Results from last 7 days Lab Units 08/05/24 2143 SODIUM mmol/L 136 POTASSIUM mmol/L 3.7 CHLORIDE mmol/L 103 BUN mg/dL 10 CREATININE mg/dL 0.55* EGFR mL/min/1.73m*2 129.6 GLUCOSE mg/dL 73 LFTs: Results from last 7 days Lab Units 08/05/24 2143 BILIRUBIN TOTAL mg/dL 0.5 ALK PHOS U/L 41 AST U/L 16 ALT U/L 12 ALBUMIN g/dL 3.9 TOTAL PROTEIN g/dL 6.5 B12/Folate/Iron studies: No results found for: [id number] , FOLATE , IRON , TIBC , UIBC , IRONSAT , FERRITIN Viral Hepatitis No results found for: H (more content not included)... Normal [facility] CONSULT - Attestation signed by Rick De La Paz MD at 08/07/2024 10:53 PM By using the attestations below, the signing clinician agrees that I have read and verify that the documentation has been personally reviewed by me and ensure that the documentation accurately reflects the encounter. GC: I personally saw this patient on the day of the encounter, performed the mancia portion(s) of the service and participated in the management and confirm the resident's documentation. Please note there may be an additional personal documentation from me. Additional Comments: Psychiatry Consultation Service - New Assessment Patient Name: Tracey Wallace MRN / CSN: [id number] Date of / Age: 9 2000 / y.o. / female Encounter Date: 08/06/24 Primary Care Physician: Juanjose Jenkins MD Tracey Wallace is a 24 y.o. female with psychiatric diagnoses of: major depressive disorder and generalized anxiety disorder and no significant medical history originally presenting to the [facility] Emergency Room on 08/05/2024 for evaluation of NSTEMI with persistent troponin elevation, coffee ground emesis, and recent polysubstance use. Psychiatry was consulted for management of suicide risk assessment, medication management, and management of polysubstance use disorder . Emergency Room Course: Imaging/Workup: Abnormal Labs Reviewed COMPREHENSIVE METABOLIC PANEL - Abnormal; Notable for the following components: Result Value Creatinine 0.55 (*) Calcium 8.4 (*) All other components within normal limits MAGNESIUM - Abnormal; Notable for the following components: Magnesium 1.8 (*) All other components within normal limits D-DIMER, QUANTITATIVE - Abnormal; Notable for the following components: D-Dimer, Quant (FEU) 2.05 (*) All other components within normal limits Narrative: D-Dimer values of less than 0.50 ug/ml (FEU) are considered to be a negative predictor of thrombosis. However, the D-Dimer result should be used in conjunction with pretest probability and should not be used alone to diagnose a thrombotic event. LACTIC ACID WITH 4 HOUR REFLEX - Abnormal; Notable for the following components: Lactate 0.4 (*) All other components within normal limits TROPONIN I - Abnormal; Notable for the following components: Troponin I 0.34 (*) All other components within normal limits TROPONIN I - Abnormal; Notable for the following components: Troponin I 0.27 (*) All other components within normal limits CBC WITH AUTO DIFFERENTIAL - Abnormal; Notable for the following components: Auto WBC 11.06 (*) Hemoglobin 11.9 (*) Hematocrit 35.3 (*) All other components within normal limits TOXICOLOGY PANEL URINE - Abnormal; Notable for the following components: Amphetamine+Methamphe tamine Screen, Ur Positive (*) All other components within normal limits ANTI-XA (HEPARIN LEVEL) - Abnormal; Notable for the following components: Anti-Xa (Heparin) 0.26 (*) All other components within normal limits TROPONIN I - Abnormal; Notable for the following components: Troponin I 0.24 (*) All other components within normal limits CBC - Abnormal; Notable for the following components: Hemoglobin 11.5 (*) Hematocrit 35.7 (*) All other components within normal limits Imaging for last 3 days: No X-ray results found for the past [address] results found for the past 3 days No MRI results found for the past 3 days Reported Behavior: Calm and cooperative with staff, slight agitation noted during interview. PRN Medications Administered: Atorvastatin 10 mg Pantoprazole 40 mg The patient was admitted medically for management of Elevated troponin [R79.89], NSTEMI. Medical Floor Workup: Hospital Course: Persistently elevated troponin levels, patient is scheduled for a cardiac catheterization this afternoon Reported Behavior: Calm and cooperative with staff, observed to be laying in bed comfortably, not in any acute stress. PRN Medications Administered: 08/06: None Subjective History of Present Illness: Ms. Tracey Wallace is a 25 year old female presenting to the [facility] medical floors for medical management of persistently elevated troponins, coffee ground emesis, hemoptysis, following polysubstance use of heroin, fentanyl, cocaine, alprazolam, and alcohol. Patient states that this recent episode of substance use began a few weeks ago following a failure to follow-up with outpatient rehabilitation and an increase in depressive symptoms including feelings hopelessness, guilt, difficulty sleeping, anxiety, irritability and passive suicidal ideations. Further, about a week ago she Narcan was utilized on her after an unintentional overdose on heroin and fentanyl. She reports that prior to this episode she was abstinent of substance use for approximately 7 months, w (more content not included)... Normal [facility] CONSULT - Attestation signed by Stephenie Delgado MD at 08/08/2024 4:38 PM I personally saw and examined the patient on the same date of service as the resident/fellow. I discussed the findings and therapeutic plan with the resident/fellow. Plan of care was discussed with patient, and patient is agreeable with plan. I agree with the documentation, except for any edits/updates below. Teaching Physician's Revisions: Patient presenting with drug use, hematemesis, and chest pain. Cardiac enzymes elevated. Enzyme elevation may be non specific. Recommend GI evaluation for hematemesis. Pending findings, and pending trajectory of troponin and patient's symptoms, consider coronary angiography on Friday. Stephenie Delgado MD [facility] Cardiology Consult Note Reason for Consult: Chest pain and elevated troponin HPI: Tracey Wallace is a 24 y.o. female with PMHx of recreational drug abuse, anxiety, and depression who presents to hospital as a transfer from [facility] due to nausea, coffee ground emesis, and chest pain. Pt was recent discharged from rehab and decided to do multiple drugs. Pt reports she drank a bunch of alcohol and took a bunch of pills and snorted multiple drugs including: cocaine, oxycodone, benzos such as Xanax, methamphetamines, adderall, marijuana, and snuff per the pt in the last day. Pt reports she also will occasionally use heroin and fentanyl. After using a mixture of drugs and alcohol, pt reports and episode of coffee-ground emesis and a pressure-like chest pain. Pt reports no addtl episodes of emesis since the addtl episode. Pt reports this morning she had a recurrence of the chest pain. Pt had a troponin trend of 0.34, 0.27, and 0.24 at our hospital. Initial troponin at [place] (high-sensitivity troponin)- was 200 then 3 hours later changed to 500, repeat troponin 3 hours after that came back at 759.4. Serial EKGs show pt is in normal sinus rhythm without any ST elevations or depressions. Cardiology ROS: Review of Systems Constitutional: Negative for chills, decreased appetite and fever. Cardiovascular: Positive for chest pain and leg swelling. Respiratory: Negative for cough and shortness of breath. Gastrointestinal: Positive for hematemesis and nausea. Negative for abdominal pain, constipation and diarrhea. Past Medical History She has a past medical history of Anxiety. Surgical History She has no past surgical history on file. Social History She reports that she has been smoking cigarettes. Her smokeless tobacco use includes snuff. She reports that she does not currently use alcohol. She reports current drug use. Drugs: Cocaine, Marijuana, and Oxycodone. Family History No family history on file. Allergies Patient has no allergy information on record. Medications Medications Prior to Admission Medication Sig Dispense Refill Last Dose venlafaxine (Effexor) 50 mg tablet Take 50 mg by mouth 1 (one) time. Current Facility-Administered Medications Medication Dose Route Frequency Provider Last Rate Last Admin aspirin EC tablet 81 mg 81 mg oral Daily Simi Kerr NP atorvastatin (Lipitor) tablet 10 mg 10 mg oral Nightly Simi Kerr NP 10 mg at 08/05/24 2220 diphenhydrAMINE (BENADryl) injection 25 mg 25 mg intravenous q6h PRN Simi Kerr NP heparin infusion 100 units/mL in D5W 0-28 Units/kg/hr intravenous Continuous Simi Kerr NP 13.1 mL/hr at 08/06/24 0520 16 Units/kg/hr at 08/06/24 0520 [Held by provider] lisinopril tablet 2.5 mg 2.5 mg oral Daily Simi Kerr NP [Held by provider] metoprolol tartrate (Lopressor) tablet 25 mg 25 mg oral BID Simi Kerr NP nitroglycerin (Nitrostat) SL tablet 0.4 mg 0.4 mg sublingual q5 min PRN Simi Kerr NP Oxygen Therapy inhalation Continuous Simi Kerr NP pantoprazole (ProtoNix) injection 40 mg 40 mg intravenous Daily before breakfast Simi Kerr NP Or pantoprazole (ProtoNix) EC tablet 40 mg 40 mg oral Daily before breakfast Simi Kerr NP 40 mg at 08/06/24 0631 sodium chloride flush 10 mL 10 mL intravenous q8h PRN Simi Kerr NP Last Recorded Vitals Patient Vitals for the past 24 hrs: BP Temp Temp src Pulse Resp SpO2 Height Weight 08/06/24 0805 91/59 37.3 ???C (99.1 ???F) Temporal 69 16 99 % -- -- 08/06/24 0400 103/65 37 ???C (98.6 ???F) Temporal 80 17 100 % -- -- 08/06/24 0000 101/68 37.1 ???C (98.8 ???F) Temporal 82 15 98 % -- -- 08/05/24 2100 105/68 37.4 ???C (99.3 ???F) Temporal 76 18 99 % -- -- 08/05/242054 -- -- -- -- -- -- 1.575 m (5' 2 ) 81.6 kg (180 lb) Physical Examination: Physical Exam Constitutional: General: She is not in acute distress. Appearance: She is normal weight. She is not toxic-appearing. HENT: Head: Normocephalic and atraumatic. Mouth/Throat: Mouth: Mucous membranes ar (more content not included)... Normal [facility] TOXICOLOGY PANEL URINEon AMPHETAMINE+METHAMPHETA MINE SCREEN (PRESENCE) IN URINE Positive Abnormal Negative [facility] Comment on above: Performed By: #### L [id number] #### [facility] (BEAKER) [address] [place] [address] BARBITURATES PRESENCE IN URINE BY SCREEN METHOD Negative Normal Negative [facility] Comment on above: Performed By: #### L [id number] #### [facility] ([facility]) [address] [place] [address] Benzodiazepines Ql (U) Negative Normal Negative [facility] Comment on above: Performed By: #### L [id number] #### [facility] ([facility]) [address] [place] [address] CANNABINOID (PRESENCE) IN URINE BY SCREEN METHOD Negative Normal Negative [facility] Comment on above: Performed By: #### L [id number] #### [facility] ([facility]AK[facility]) [address] [place] [address] Cocaine Ql (U) Negative Normal Negative [facility] Comment on above: Performed By: #### L [id number] #### [facility] (BEAKER) [address] [place] [address] METHADONE (PRESENCE) IN URINE BY SCREEN METHOD Negative Normal Negative [facility] Comment on above: Performed By: #### L [id number] #### [facility] (BEAKER) [address] [place] [address] OPIATES (PRESENCE) IN URINE BY SCREEN METHOD Negative Normal Negative [facility] Comment on above: Performed By: #### L [id number] #### [facility] ([facility]) [address] [place] [address] PHENCYCLIDINE PRESENCE IN URINE BY SCREEN METHOD Negative Normal Negative [facility] Comment on above: Performed By: #### L [id number] #### [facility] ([facility]) [address] [place] [address] Propoxyphene Screen Ql (U) Negative Normal Negative [facility] Comment on above: Performed By: #### L [id number] #### [facility] ([facility]) [address] [place] [address] TRICYCLIC ANTIDEPRESSANTS (PRESENCE) IN URINE Negative Normal Negative [facility] Comment on above: Performed By: #### L [id number] #### [facility] ([facility]) [address] [place] [address] TROPONIN Ion 08-06-2024 Troponin I.cardiac [Mass/Vol] 0.24 ng/mL Critically high 0.00-0.04 [facility] Comment on above: Result Comment: M-IN EVIOUS CRITICAL RESULT Previous result verified on 08/06/2024 0139 on specimen/case [id number] called with component Troponin I for procedure Troponin I with value 0.27 ng/mL. Performed By: #### L [id number] #### [facility] ([facility]) [address] [place] [address] Troponin I.cardiac [Mass/Vol] 0.27 ng/mL Critically high 0.00-0.04 [facility] Comment on above: Result Comment: Prev ious result verified on 08/05/2024 2338 on specimen/case [id number] called with component Troponin I for procedure Troponin I with value 0.34 ng/mL. Performed By: #### L [id number] #### [facility] ([facility]) [address] [place] [address] 30on 08-05-2024 30 The patient is Moderately Stable - Low risk of patient condition declining or worsening The patient's goals for the shift include sleep The clinical goals for the shift include vss, hemodynamically stable, no cardiac arrythmias, no chest pain Normal [facility] APTTon 08-05-2024 ACTIVATED PARTIAL THROMBOPLASTIN TIME IN PPP BY COAGULATION ASSAY 27.2 Seconds Normal 25.0-35.0 [facility] Comment on above: Result Comment: Clin ical significance of the APTT is questionable in the presence of heparin. Performed By: #### L [id number] #### [facility] ([facility]) [address] [place] [address] B-TYPE NATRIURETIC PEPTIDEon 08-05-2024 Natriuretic peptide B (Bld) [Mass/Vol] 67 pg/mL Normal 0-100 [facility] Comment on above: Performed By: #### L [id number] #### [facility] ([facility]) [address] [place] [address] CBC WITH AUTO DIFFERENTIALon 08-05-2024 Basophils (Bld) [#/Vol] 0.02 10*3/uL Normal 0.00-0.20 [facility] Comment on above: Performed By: #### L [id number] #### [facility] ([facility]) [address] [place] [address] Basophils/100 WBC (Bld) 0.2 % Normal 0.0-1.0 [facility] Comment on above: Performed By: #### L [id number] #### [facility] ([facility]) [address] [place] [address] Eosinophils (Bld) [#/Vol] 0.04 10*3/uL Normal 0.00-0.50 [facility] Comment on above: Performed By: #### L [id number] #### [facility] ([facility]) [address] [place] [address] Eosinophils/100 WBC (Bld) 0.4 % Normal 0.0-6.0 [facility] Comment on above: Performed By: #### L [id number] #### [facility] ([facility]) [address] [place] [address] Erythrocyte distribution width (RBC) [Ratio] 12.9 % Normal 11.5-15.0 [facility] Comment on above: Performed By: #### L [id number] #### [facility] ([facility] [address] [place] [address] ERYTHROCYTE MEAN CORPUSCULAR HEMOGLOBIN CONCENTRATION (G/DL) BY AUTOMATED 33.7 g/dL Normal 32.0-35.0 [facility] Comment on above: Performed By: #### L [id number] #### [facility] ([facility]) [address] [place] [address] Hematocrit (Bld) [Volume fraction] 35.3 % Low 36.0-48.0 [facility] Comment on above: Performed By: #### L [id number] #### [facility] ([facility]) [address] [place] [address] Hemoglobin (Bld) [Mass/Vol] 11.9 g/dL Low 12.0-15.0 [facility] Comment on above: Performed By: #### L [id number] #### [facility] ([facility] [address] [place] [address] Immature granulocytes (Bld) [#/Vol] 0.03 10*3/uL Normal 0.00-0.20 [facility] Comment on above: Performed By: #### L [id number] #### [facility] ([facility] [address] [place] [address] Immature granulocytes/100 WBC (Bld) 0.3 % Normal 0.0-1.0 [facility] Comment on above: Performed By: #### L [id number] #### [facility] ([facility]AK[facility]) [address] [place] [address] Lymphocytes (Bld) [#/Vol] 3.54 10*3/uL Normal 1.20-4.00 [facility] Comment on above: Performed By: #### L [id number] #### [facility] ([facility]) [address] [place] [address] Lymphocytes/100 WBC (Bld) 32.0 % Normal 20.0-45.0 [facility] Comment on above: Performed By: #### L [id number] #### [facility] ([facility]) [address] [place] [address] MCH (RBC) [Entitic mass] 30.8 pg Normal 27.0-33.0 [facility] Comment on above: Performed By: #### L [id number] #### [facility] ([facility]) [address] [place] [address] MCV (RBC) [Entitic vol] 91.5 fL Normal 82.0-98.0 [facility] Comment on above: Performed By: #### L [id number] #### [facility] ([facility]) [address] [place] [address] Monocytes (Bld) [#/Vol] 0.56 10*3/uL Normal 0.10-1.00 [facility] Comment on above: Performed By: #### L [id number] #### [facility] ([facility]) [address] [place] [address] Monocytes/100 WBC (Bld) 5.1 % Normal 5.0-12.0 [facility] Comment on above: Performed By: #### L [id number] #### [facility] ([facility]) [address] [place] [address] Neutrophils (Bld) [#/Vol] 6.87 10*3/uL Normal 1.60-7.60 [facility] Comment on above: Performed By: #### L [id number] #### [facility] ([facility]) [address] [place] [address] Neutrophils/100 WBC (Bld) 62.0 % Normal 40.0-72.0 [facility] Comment on above: Performed By: #### L [id number] #### [facility] ([facility] [address] [place] [address] NRBC (PER 100 WBCS) BY AUTOMATED COUNT 0.0 % Normal 0 [facility] Comment on above: Performed By: #### L [id number] #### [facility] ([facility]) [address] [place] [address] PLATELETS (10*3/UL) IN BLOOD AUTOMATED COUNT 278 10*3/uL Normal 150-400 [facility] Comment on above: Performed By: #### L [id number] #### [facility] ([facility]) [address] [place] [address] RBC (Bld) [#/Vol] 3.86 10*6/uL Normal 3.80-5.00 [facility] Comment on above: Performed By: #### L [id number] #### [facility] ([facility]) [address] [place] [address] WBC (Bld) [#/Vol] 11.06 10*3/uL High 4.00-10.60 [facility] Comment on above: Performed By: #### L [id number] #### [facility] ([facility]) [address] [place] [address] COMPREHENSIVE METABOLIC PANE Oj 08-05-2024 Albumin [Mass/Vol] 3.9 g/dL Normal 3.5-5.7 [facility] Comment on above: Performed By: #### L [id number] #### [facility] ([facility]) [address] [place] [address] ALP [Catalytic activity/Vol] 41 U/L Normal 34-104 [facility] Comment on above: Performed By: #### L [id number] #### [facility] ([facility]) [address] [place] [address] ALT [Catalytic activity/Vol] 12 U/L Normal 7-52 [facility] Comment on above: Performed By: #### L [id number] #### [facility] ([facility] [address] [place] [address] Anion gap [Moles/Vol] 12 mmol/L Normal 7-20 [facility] Comment on above: Performed By: #### L [id number] #### [facility] ([facility]AK[facility]) [address] [place] [address] AST [Catalytic activity/Vol] 16 U/L Normal 13-39 [facility] Comment on above: Performed By: #### L [id number] #### [facility] ([facility]) [address] [place] [address] Bilirubin [Mass/Vol] 0.5 mg/dL Normal 0.3-1.0 [facility] Comment on above: Performed By: #### L [id number] #### [facility] (BEAK[facility]) [address] [place] [address] Calcium [Mass/Vol] 8.4 mg/dL Low 8.6-10.3 [facility] Comment on above: Performed By: #### L [id number] #### [facility] [facility] [address] [place] [address] Chloride [Moles/Vol] 103 mmol/L Normal 98-107 [facility] Comment on above: Performed By: #### L [id number] #### [facility] ([facility] [address] [place] [address] CO2 [Moles/Vol] 25 mmol/L Normal 21-31 [facility] Comment on above: Performed By: #### L [id number] #### [facility] ([facility] [address] [place] [address] Creatinine [Mass/Vol] 0.55 mg/dL Low 0.60-1.20 [facility] Comment on above: Performed By: #### L [id number] #### [facility] ([facility]) [address] [place] [address] GLOMERULAR FILTRATION RATE ML/MIN/1.73 SQ M.PREDICTED 129.6 mL/min/1.73m*2 Normal >60.0 [facility] Comment on above: Result Comment: The [facility]???s estimated glomerular filtration rate (eGFR) will no longer include consideration of race in its calculation. The National Kidney Foundation???s eGFR Task Force developed new recommendations for the estimation of the glomerular filtration rate in the [place] They recommend immediate implementation of the new equation refit without the race variable in all laboratories because the calculation does not include race. In addition to not including race in the calculation and reporting, it included diversity in its development, and has acceptable performance characteristics and potential consequences that do not disproportionately affect any one group of individuals. Performed By: #### L [id number] #### [facility] ([facility]) [address] [place] [address] Glucose [Mass/Vol] 73 mg/dL Normal 70-100 [facility] Comment on above: Performed By: #### L [id number] #### [facility] ([facility]) [address] [place] [address] Potassium [Moles/Vol] 3.7 mmol/L Normal 3.5-5.1 [facility] Comment on above: Performed By: #### L [id number] #### [facility] ([facility]) [address] [place] [address] Protein [Mass/Vol] 6.5 g/dL Normal 6.0-8.3 [facility] Comment on above: Performed By: #### L [id number] #### [facility] ([facility]) [address] [place] [address] Sodium [Moles/Vol] 136 mmol/L Normal 136-145 [facility] Comment on above: Performed By: #### L [id number] #### [facility] ([facility]) [address] [place] [address] Urea nitrogen [Mass/Vol] 10 mg/dL Normal 7-25 [facility] Comment on above: Performed By: #### L [id number] #### [facility] ([facility]) [address] [place] [address] UREA NITROGEN/CREATININE (MASS RATIO) IN SER/PLAS 18.2 Normal [facility] Comment on above: Performed By: #### L [id number] #### [facility] ([facility]) [address] [place] [address] D-DIMER, QUANTITATIVEon 07-20 FIBRIN D-DIMER (UG/L FEU) IN PLATELET POOR PLASMA 2.05 mcg/mL FEU High 0.27-0.49 [facility] Comment on above: Order Comment: D-Dim er values of less than 0.50 ug/ml (FEU) are considered to be a negative predictor of thrombosis. However, the D-Dimer result should be used in conjunction with pretest probability and should not be used alone to diagnose a thrombotic event. Performed By: #### L [id number] #### [facility] ([facility]) [address] [place] [address] ETHANOLon 08-05-2024 ETHANOL CALCULATED (%) Normal [facility] Comment on above: Performed By: #### L [id number] #### [facility] ([facility]) [address] [place] [address] Magnesium [Mass/Vol] 14.0 mg/dL Normal [facility] Comment on above: Performed By: #### L [id number] #### [facility] ([facility]) [address] [place] [address] LACTIC ACID WITH 4 HOUR REFL EXon 08-05-2024 LACTATE (MMOL/L) IN SER/PLAS 0.4 mmol/L Low 0.5-2.2 [facility] Comment on above: Performed By: #### L [id number] #### [facility] ([facility]) [address] [place] [address] MAGNESIUMon 08-05-2024 Magnesium [Mass/Vol] 1.8 mg/dL Low 1.9-2.7 [facility] Comment on above: Performed By: #### L [id number] #### [facility] ([facility]) [address] [place] [address] PHOSPHORUSon 08-05-2024 Magnesium [Mass/Vol] 2.6 mg/dL Normal 2.5-5.0 [facility] Comment on above: Performed By: #### L [id number] #### [facility] ([facility]) [address] [place] [address] PROTIME-INRon 08-05-2024 INR IN PPP BY COAGULATION ASSAY 1.02 Normal 0.90-1.10 [facility] Comment on above: Result Comment: ACCC P RECOMMENDED INR FOR WARFARIN THERAPY CONDITION INR PROPHYLAXIS OF VENOUS THROMBOSIS 2-3 (HIGH-RISK SURGERY) TREATMENT OF VENOUS THROMBOSIS 2-3 TREATMENT OF PULMONARY EMBOLISM 2-3 PREVENTION OF SYSTEMIC EMBOLISM: 2-3 ACUTE MYOCARDIAL INFARCTION TISSUE HEART VALVES VALVULAR HEART DISEASE ATRIAL FIBRILLATION RECURRENT SYSTEMIC EMBOLISM MECHANICAL HEART VALVE 2.5-3.5 FROM: ORAL ANTICOAGULANTS. MECHANISM OF ACTION, CLINICAL EFFECTIVENESS, AND OPTIMAL THERAPEUTIC RANGE. CHEST 1995;108:231S-246S. Performed By: #### L [id number] #### [facility] ([facility]) [address] [place] [address] PROTHROMBIN TIME (PT) IN PPP BY COAGULATION ASSAY 13.4 Seconds Normal 12.3-14.8 [facility] Comment on above: Performed By: #### L [id number] #### [facility] ([facility]) [address] [place] [address] TROPONIN Ion 08-05-2024 Troponin I.cardiac [Mass/Vol] 0.34 ng/mL Critically high 0.00-0.04 [facility] Comment on above: Performed By: #### L [id number] #### [facility] ([facility]) [address] [place] [address] Alanine aminotransferase [En zymatic activity/volume] in Serum or PlasmaOrdered By: Asia Sparks on 02-19-2024 ALT [Catalytic activity/Vol] 14 U/L 7-[address] [facility] Albumin [Mass/volume] in Ser um or Plasma by Bromocresol green (BCG) dye binding methoOrdered By: Asia Sparks on 02-19-2024 Albumin BCG dye [Mass/Vol] 4.6 g/dL 3.5-5.[address] [facility] Alkaline phosphatase [Enzyma tic activity/volume] in Serum or PlasmaOrdered By: Asia Sparks on 02-19-2024 ALP [Catalytic activity/Vol] 45 U/L 34-[address] [facility] Aspartate aminotransferase [ Enzymatic activity/volume] in Serum or PlasmaOrdered By: Asia Sparks on 02-19-2024 AST [Catalytic activity/Vol] 17 U/L 13-[address] [facility] Basophils Auto (Bld) [#/Vol] Ordered By: Asia Sparks on 02-19-2024 Basophils (Bld) [#/Vol] 0.0 10*3/uL 0.0-0.[address] [facility] Basophils/100 WBC Auto (Bld) Ordered By: Asia Sparks on 02-19-2024 Basophils/100 WBC (Bld) 0.5 % . [facility] Bilirubin.total [Mass/volume ] in Serum or PlasmaOrdered By: Asia Sparks on 02-19-2024 Bilirubin [Mass/Vol] 0.4 mg/dL 0.3-1.0 [facility] Calcium [Mass/volume] in Ser um or PlasmaOrdered By: Asia Sparks on 02-19-2024 Calcium [Mass/Vol] 9.5 mg/dL 8.6-10.3 [facility] Carbon dioxide, total [Moles /volume] in Serum or PlasmaOrdered By: Asia Sparks on 02-19-2024 CO2 [Moles/Vol] 29.9 mmol/L 21.0-31.0 [facility] Chloride [Moles/volume] in S derek or PlasmaOrdered By: Asia Sparks on 02-19-2024 Chloride [Moles/Vol] 103 mmol/L 98-107 [facility] Creatinine [Mass/volume] in Serum or PlasmaOrdered By: Asia Sparks on 02-19-2024 Creatinine [Mass/Vol] 0.74 mg/dL 0.60-1.20 [facility] Eosinophils Auto (Bld) [#/Vo l]Ordered By: Asia Sparks on 02-19-2024 Eosinophils (Bld) [#/Vol] 0.1 10*3/uL 0.0-0.[address] [facility] Eosinophils/100 WBC Auto (Bl d)Ordered By: Asia Sparks on 02-19-2024 Eosinophils/100 WBC (Bld) 1.6 % . [facility] Erythrocyte distribution wid th Auto (RBC) [Ratio]Ordered By: Asia Sparks on 02-19-2024 Erythrocyte distribution width (RBC) [Ratio] 13.0 % 11.9-15.[address] [facility] Globulin Calc (S) [Mass/Vol] Ordered By: Asia Sparks on 02-19-2024 Globulin (S) [Mass/Vol] 2.4 g/dL [facility] Glucose [Mass/volume] in Ser um or PlasmaOrdered By: Asia Sparks on 02-19-2024 Glucose [Mass/Vol] 77 mg/dL 70-100 [facility] Comment on above: ADA recommended refe rence rangeRandom Glucose Reference Range is dependent on time and content of last meal. Glucose of more than 200 mg/dL in a nonstressed, ambulatory subject supports the diagnosis of Diabetes Mellitus. Hematocrit Auto (Bld) [Volum e fraction]Ordered By: Asia Spakrs on 02-19-2024 Hematocrit (Bld) [Volume fraction] 36.1 % 34.0-46.[address] [facility] Hemoglobin [Mass/volume] in BloodOrdered By: Asia Sparks on 02-19-2024 Hemoglobin (Bld) [Mass/Vol] 12.4 g/dL 11.8-15.[address] [facility] Leukocytes [#/volume] correc julita for nucleated erythrocytes in Blood by Automated counOrdered By: Asia Sparks on 02-19-2024 WBC corrected for nucl RBC Auto (Bld) [#/Vol] 5.1 10*3/uL 3.8-11.[address] [facility] Lymphocytes Auto (Bld) [#/Vo l]Ordered By: Asia Sparks on 02-19-2024 Lymphocytes (Bld) [#/Vol] 2.4 10*3/uL 1.00-4.[address] [facility] Lymphocytes/100 WBC Auto (Bl d)Ordered By: Asia Sparks on 02-19-2024 Lymphocytes/100 WBC (Bld) 47.3 % . [facility] MCH Auto (RBC) [Entitic mass ]Ordered By: Asia Sparks on 02-19-2024 MCH (RBC) [Entitic mass] 30.6 pg 24.7-34.[address] [facility] MCHC Auto (RBC) [Mass/Vol]Or dered By: Asia Sparks on 02-19-2024 MCHC (RBC) [Mass/Vol] 34.4 g/dL 32.0-35.0 [facility] MCV Auto (RBC) [Entitic vol] Ordered By: Asia Sparks on 02-19-2024 MCV (RBC) [Entitic vol] 89.0 fL 80-100 [facility] Monocytes Auto (Bld) [#/Vol] Ordered By: Asia Sparks on 02-19-2024 Monocytes (Bld) [#/Vol] 0.3 10*3/uL 0.0-0.[address] [facility] Monocytes/100 WBC Auto (Bld) Ordered By: Asia Sparks on 02-19-2024 Monocytes/100 WBC (Bld) 5.1 % . [facility] Neutrophils Auto (Bld) [#/Vo l]Ordered By: Asia Sparks on 02-19-2024 Neutrophils (Bld) [#/Vol] 2.3 10*3/uL 1.8-7.[address] [facility] Neutrophils/100 WBC Auto (Bl d)Ordered By: Asia Sparks on 02-19-2024 Neutrophils/100 WBC (Bld) 45.5 % . [facility] No Panel InformationOrdered By: Asia Sparks on 02-19-2024 Estimated GFR (CKD-EPI) > 60.0 mL/Min [facility] Creatinine Clearance (Chem N/A [facility] Nucleated erythrocytes [Pres ence] in Blood by Automated countOrdered By: Asia Sparks on 02-19-2024 Nucleated RBC Auto Ql (Bld) 0.3 /100{WBC} 0-0.[address] [facility] Platelet mean volume Auto (B ld) [Entitic vol]Ordered By: Asia Sparks on 02-19-2024 Platelet mean volume (Bld) [Entitic vol] 8.1 fL 6.3-10.[address] [facility] Platelets Auto (Bld) [#/Vol] Ordered By: Asia Sparks on 02-19-2024 Platelets (Bld) [#/Vol] 262 10*3/uL 150-[address] [facility] Potassium [Moles/volume] in Serum or PlasmaOrdered By: Asia Sparks on 02-19-2024 Potassium [Moles/Vol] 4.6 mmol/L 3.5-5.1 [facility] Protein [Mass/volume] in Ser um or PlasmaOrdered By: Asia Sparks on 02-19-2024 Protein [Mass/Vol] 7.0 g/dL 6.4-8.9 [facility] RBC Auto (Bld) [#/Vol]Ordere d By: Asia Sparks on 02-19-2024 RBC (Bld) [#/Vol] 4.06 10*6/uL 3.60-5.00 [facility] Serum or plasma albumin/glob ulin mass ratioOrdered By: Asia Sparks on 02-19-2024 Albumin/Globulin [Mass ratio] 1.9 {ratio} [facility] Serum or plasma anion gap de terminationOrdered By: Asia Sparks on 02-19-2024 Anion gap [Moles/Vol] 8.7 mmol/L 6.0-15.0 [facility] Sodium [Moles/volume] in Ser um or PlasmaOrdered By: Asia Sparks on 02-19-2024 Sodium [Moles/Vol] 137 mmol/L 136-145 [facility] Thyrotropin [Units/volume] i n Serum or PlasmaOrdered By: Asia Sparks on 02-19-2024 TSH Qn 0.75 m[IU]/L 0.45-5.[address] [facility] Urea nitrogen [Mass/volume] in Serum or PlasmaOrdered By: Asia Sparks on 02-19-2024 Urea nitrogen [Mass/Vol] 16 mg/dL 7-[address] [facility] Vitamin D+Metabolites [Mass/ volume] in Serum or PlasmaOrdered By: Asia Sparks on 02-19-2024 Vitamin D+Metabolites [Mass/Vol] 25.6 ng/mL Low 30-[address] [facility] Comment on above: VITAMIN D STATUS 25( [place])VITAMIN D RANGE (ng/mL) Deficient <20 Insufficient 20 to <30Sufficient 30 to 100Reference: Sonja JOHNS,Michael SCHAEFFER, Leland DEL CID, et al. Evaluation,treatment, and prevention of vitamin D deficiency; an Endocrine Society clinical practice guideline. JCEM. 2010; 96(7):1911-30. WBC Auto (Bld) [#/Vol]Ordere d By: Asia Sparks on 02-19-2024 WBC (Bld) [#/Vol] 5.1 10*3/uL 3.8-11.6 [facility] COVID Quick Testingon 2021 Result Negative [employer] Other Quick Strepon 07-01-2022 S. pyogenes Org specific cx Ql (Throat) Negative [facility] Other Quick Strep [employer] Other XR TSPINE 3 VIEWSon 12-13-19 22 [...] by: ABDULAZIZ WATKINS Date: 2021-12-13 10:09 Normal [facility] US PELVIS AND TRANSVAGon US PELVIS AND [...] authenticated by: ABDULAZIZ FERNANDES Date: 2021-07-12 11:17 [facility] PAP ACOG PANEL 2: 19 to 27on 07-11-2021 . . Normal [facility] Comment on above: Performed By: #### [id number] #### [facility] [address] [address] [address] Luis Fernando Martinez Age Gdln ACOG Testing 19- [facility] Comment on above: Performed By: #### [id number] #### [facility] [address] [address] [address] Luis Fernando Martinez DIAGNOSIS: Comment Normal [facility] Comment on above: Result Comment: NEGA TIVE FOR INTRAEPITHELIAL LESION OR MALIGNANCY. Performed By: #### [id number] #### [facility] [address] [address] [address] Luis Fernando Martinez Methodology: Comment Normal [facility] Comment on above: Result Comment: This liquid based ThinPrep(R) pap test was screened with the use of an image guided system. Performed By: #### [id number] #### [facility] [address] [address] [address] Luis Fernando Martinez Note: Comment Normal [facility] Comment on above: Result Comment: The Pap smear is a screening test designed to aid in the detection of premalignant and malignant conditions of the uterine cervix. It is not a diagnostic procedure and should not be used as the sole means of detecting cervical cancer. Both false-positive and false-negative reports do occur. . Performed By: #### [id number] #### [facility] [address] [place] [address] Dr. Luis Fernando Martinez Performed by: Comment Normal [facility] Comment on above: Result Comment: Dexter Kimbrough, Turbine Attendant (ASCP) Performed By: #### [id number] #### [facility] [address] [address] [address] Luis Fernando Martinez Reflex Criteria: Comment Normal [facility] Comment on above: Result Comment: The HPV DNA reflex criteria were not met with this specimen result therefore, no HPV testing was performed. . Performed By: #### [id number] #### [facility] [address] [place] [address] Dr. Luis Fernando Martinez Specimen adequacy: Comment Normal [facility] Comment on above: Result Comment: Sati sfactory for evaluation. Endocervical and/or squamous metaplastic cells (endocervical component) are present. Performed By: #### [id number] #### [facility] [address] [place] [address] Dr. Luis Fernando Martinez Vital Signs Date Time Vital Sign Value Performing Clinician Facility 06-30-2025 08:44-0400 Body mass index (BMI) [Ratio] 30.12 kg/m2 Regina HINDS Work Phone: [facility] 06-30-2025 08:44-0400 Body weight 72.3 kg Regina HINDS Work Phone: [facility] 06-30-2025 08:44-0400 Diastolic blood pressure 60 mm[Hg] Regina HINDS Work Phone: [facility] 06-30-2025 08:44-0400 Systolic blood pressure 100 mm[Hg] Regina HINDS Work Phone: [facility] 06-06-2025 08:51-0400 Body mass index (BMI) [Ratio] 30.47 kg/m2 Regina HINDS Work Phone: [facility] 06-06-2025 08:51-0400 Body weight 73.14 kg Regina Je HINDS Work Phone: [facility] 06-06-2025 08:51-0400 Diastolic blood pressure 62 mm[Hg] Regina Je PA Work Phone: [facility] 06-06-2025 08:51-0400 Systolic blood pressure 110 mm[Hg] Regina Je HINDS Work Phone: [facility] 05-03-2024 14:41-0400 Body height 154.94 cm MD Juanjose Jenkins Work Phone: [facility] 05-03-2024 14:41-0400 Body mass index (BMI) [Ratio] 32.3 kg/m2 MD Juanjose Jenkins Work Phone: [facility] 05-03-2024 14:41-0400 Body weight 77.56 kg MD Juanjose Jenkins Work Phone: [facility] 05-03-2024 14:41-0400 Diastolic blood pressure 68 mm[Hg] MD Juanjose Jenkins Work Phone: [facility] 05-03-2024 14:41-0400 Heart rate 89 /min MD Juanjose Jenkins Work Phone: [facility] 05-03-2024 14:41-0400 Systolic blood pressure 99 mm[Hg] MD Juanjose Jenkins Work Phone: [facility] 11-19-2023 11:30-0500 Body height 154.94 cm Juanjose Jenkins Other [facility] [employer] Other 11-19-2023 11:30-0500 Body mass index (BMI) [Ratio] 30.64 kg/m2 Juanjose Jenkins Other [facility] [employer] Other 11-19-2023 11:30-0500 Body weight 73.57 kg Juanjose Jenkins Other [facility] [employer] Other 11-19-2023 11:30-0500 Diastolic blood pressure 73 mm[Hg] Juanjose Jenkins Other [employer] Other 11-19-2023 11:30-0500 Systolic blood pressure 106 mm[Hg] Juanjose Jenkins Other [employer] Other 10-03-2023 11:15-0500 Body height 154.94 cm Juanjose Jenkins Other [employer] Other 10-03-2023 11:15-0500 Body mass index (BMI) [Ratio] 30.23 kg/m2 Juanjose Jenkins Other [employer] Other 10-03-2023 11:15-0500 Body weight 72.58 kg Juanjose Jenkins Other [employer] Other 10-03-2023 11:15-0500 Diastolic blood pressure 61 mm[Hg] Juanjose Jenkins Other [employer] Other 10-03-2023 11:15-0500 Systolic blood pressure 99 mm[Hg] Juanjose Jenkins Other [employer] Other 07-04-2023 08:45-0400 Body height 154.94 cm Juanjose Jenkins Other [employer] Other 07-04-2023 08:45-0400 Body mass index (BMI) [Ratio] 28.6 kg/m2 Juanjose Jenkins Other [employer] Other 07-04-2023 08:45-0400 Body weight 68.68 kg Juanjose Jenkins Other [employer] Other 07-04-2023 08:45-0400 Diastolic blood pressure 85 mm[Hg] Juanjose Jenkins Other [employer] Other 07-04-2023 08:45-0400 Respiratory rate 12 /min Juanjose Jenkins Other [employer] Other 07-04-2023 08:45-0400 Systolic blood pressure 126 mm[Hg] Juanjose Jenkins Other [employer] Other 05-26-2023 11:45-0400 Body height 154.94 cm Juanjose Jenkins Other [employer] Other 05-26-2023 11:45-0400 Body mass index (BMI) [Ratio] 28.72 kg/m2 Juanjose Jenkins Other [employer] Other 05-26-2023 11:45-0400 Body weight 68.95 kg Juanjose Jenkins Other [employer] Other 05-26-2023 11:45-0400 Diastolic blood pressure 66 mm[Hg] Juanjose Jenkins Other [employer] Other 05-26-2023 11:45-0400 Systolic blood pressure 103 mm[Hg] Juanjose Jenkins Other [employer] Other 04-30-2023 10:45-0400 Body height 154.94 cm Juanjose Jenkins Other [employer] Other 04-30-2023 10:45-0400 Body mass index (BMI) [Ratio] 27.55 kg/m2 Juanjose Jenkins Other [employer] Other 04-30-2023 10:45-0400 Body weight 66.13 kg Juanjose Jenkins Other [employer] Other 04-30-2023 10:45-0400 Diastolic blood pressure 79 mm[Hg] Juanjose Jenkins Other [employer] Other 04-30-2023 10:45-0400 Systolic blood pressure 112 mm[Hg] Juanjose Jenkins Other [employer] Other 04-25-2023 11:30-0400 Body height 154.94 cm Juanjose Jenkins Other [employer] Other 04-25-2023 11:30-0400 Body mass index (BMI) [Ratio] 27.58 kg/m2 Juanjose Jenkins Other [employer] Other 04-25-2023 11:30-0400 Body weight 66.23 kg Juanjose Jenkins Other [employer] Other 04-25-2023 11:30-0400 Diastolic blood pressure 72 mm[Hg] Juanjose Jenkins Other [employer] Other 04-25-2023 11:30-0400 Systolic blood pressure 105 mm[Hg] Juanjose Jenkins Other [employer] Other 11-13-2022 11:30-0500 Body height 154.94 cm Juanjose Jenkins Other [employer] Other 11-13-2022 11:30-0500 Body mass index (BMI) [Ratio] 28.53 kg/m2 Juanjose Jenkins Other [employer] Other 11-13-2022 11:30-0500 Body weight 68.49 kg Juanjose Jenkins Other [employer] Other 11-13-2022 11:30-0500 Diastolic blood pressure 62 mm[Hg] Juanjose Jenkins Other [employer] Other 11-13-2022 11:30-0500 SaO2% (BldA) [Mass fraction] 97 % Juanjose Alice Other [employer] Other 11-13-2022 11:30-0500 Systolic blood pressure 108 mm[Hg] Juanjose Alice Other [employer] Other 07-01-2022 10:35-0400 Body height 154.94 cm Becky Leslie Other [employer] Other 07-01-2022 10:35-0400 Body mass index (BMI) [Ratio] 25.51 kg/m2 Becky Leslie Other [employer] Other 07-01-2022 10:35-0400 Body temperature 97.3 [degF] Becky Leslie Other [employer] Other 07-01-2022 10:35-0400 Body weight 61.24 kg Becky Leslie Other [employer] Other 07-01-2022 10:35-0400 Respiratory rate 18 /min Becky Leslie Other [employer] Other 07-01-2022 10:35-0400 SaO2% (BldA) [Mass fraction] 99 % Becky Leslie Other [employer] Other Encounters Encounter Date Encounter Type Care Provider Facility Start: 06-30-2025 End: 06-30-2025 Florentino flowsdhruv HINDS Work Phone: [facility] Start: 06-30-2025 End: 06-30-2025 Florentino flowsdhruv HINDS Work Phone: [facility] Start: 06-30-2025 End: 06-30-2025 Patient encounter procedure Regina HINDS Work Phone: [facility] Work Phone: Start: 06-30-2025 End: 06-30-2025 Periodic preventive med est patient 18-39 yrs Regina HINDS Work Phone: [facility] Comment on above: Well woman exam with routine gynecological exam; Pelvic pain in female Start: 06-15-2025 ambulatory Isaac Blair acility:[facility] Start: 06-06-2025 End: 06-06-2025 Bamboo flowsheet Regina HINDS Work Phone: [facility] Start: 06-06-2025 End: 06-07-2025 Bamboo flowsheet Regina HINDS Work Phone: [facility] Start: 06-06-2025 End: 06-07-2025 External Result Encounter Edgardo Will DO Work Phone: [facility] Unsolicited Start: 06-06-2025 End: 06-06-2025 Patient encounter procedure Regina HINDS Work Phone: [facility] Comment on above: Pelvic pain in femal e; STD exposure Start: 06-06-2025 End: 06-06-2025 ambulatory REGINA HERNANDEZ Not Available Start: 05-27-2025 End: 05-27-2025 ambulatory Juanjose Jenkins MD Work Phone: [facility] Work Phone: Start: 05-27-2025 End: 05-27-2025 Patient encounter procedure Juanjose Jenkins MD -[facility] Work Phone: Start: 05-18-2025 Registered Recurring Eusebio Sampson MD -[facility] Start: 08-09-2024 End: 09-08-2024 ambulatory Facility:[id number] Start: 08-06-2024 Evaluation and management of inpatient SANDRA WHEELER [facility] Start: 08-06-2024 Evaluation and management of inpatient SANDRA WHEELER [facility] Start: 08-06-2024 Evaluation and management of inpatient SIMI KERR [facility] Start: 08-05-2024 End: 08-07-2024 Evaluation and management of inpatient JOAQUIN MELO [facility] Start: 05-03-2024 Patient encounter status Samra Jenkins MD Work Phone: [facility] Start: 05-03-2024 End: 05-03-2024 ambulatory MD Juanjose Jenkins Work Phone: [facility] Work Phone: Start: 05-03-2024 End: 05-03-2024 Patient encounter procedure MD Juanjose Jenkins Work Phone: [facility] Work Phone: Start: 02-19-2024 End: 02-19-2024 ambulatory MD Juanjose Jenkins Work Phone: [facility] Work Phone: Start: 02-19-2024 End: 02-19-2024 Patient encounter procedure MD Juanjose Jenkins Work Phone: [facility] [place] Work Phone: Start: 11-19-2023 End: 11-19-2023 ambulatory Juanjose Jenkins Other [employer] Other Start: 11-19-2023 Office outpatient vi sit 15 minutes Juanjose Jenkins [facility] Start: 10-03-2023 End: 10-03-2023 ambulatory Juanjose Jenkins Other [employer] Other Start: 10-03-2023 Office outpatient vi sit 15 minutes Juanjose Jenkins [facility] Start: 07-04-2023 End: 07-04-2023 ambulatory Juanjose Jenkins Other [employer] Other Start: 07-04-2023 Office outpatient vi sit 15 minutes Juanjose Alice [facility] Start: 05-26-2023 End: 05-26-2023 ambulatory Juanjose Jenkins Other [employer] Other Start: 05-26-2023 Office outpatient vi sit 15 minutes Juanjose Alice [facility] Start: 05-19-2023 End: 05-19-2023 ambulatory Juanjose Jenkins Other [employer] Other Start: 05-19-2023 Telephone encounter Juanjose Alice [facility] Start: 04-30-2023 End: 04-30-2023 ambulatory Juanjose Alice Other [employer] Other Start: 04-30-2023 Office outpatient vi sit 15 minutes Juanjose Alice [facility] Start: 04-25-2023 End: 04-25-2023 ambulatory Juanjose Jenkins Other [employer] Other Start: 04-25-2023 Office outpatient vi sit 15 minutes Juanjose Alice [facility] Start: 11-13-2022 End: 11-13-2022 ambulatory Juanjose Jenkins Other [employer] Other Start: 11-13-2022 Office outpatient vi sit 15 minutes Juanjose Alice [facility] Start: 07-08-2022 Gynecological examination normal Juanjose Alice Other [employer] Other Start: 07-01-2022 End: 07-01-2022 ambulatory Becky Leslie Other [employer] Other Start: 07-01-2022 Office outpatient vi sit 25 minutes Becky Leslie [facility] Start: 04-05-2022 ambulatory AYDEE DAVENPORT Facility : Start: 12-13-2021 End: 12-14-[address] JUANJOSE JENKINS Facility:[facility] Start: 07-23-2021 Encounter for gynecological examination (general) (routine) without abnormal findings DR EDGARDO SOLIS [facility] Start: 07-12-2021 End: 07-13-[address] EDGARDO SOLIS Facility:[facility] Start: 07-09-2021 End: 07-09-[address] EDGARDO SOLIS Facility:[facility] Start: 07-09-2021 End: 07-09-2021 Encounter for gynecological examination (general) (routine) without abnormal findings DR EDGARDO SOLIS Facility:[facility] Start: 2021 End: [address] DOCTOR MORENO Facility:[facility] Start: 03-26-2018 End: 03-27-2018 Ambulatory DEFAULT PHYSICIAN Facility:[facility] Procedures Date Procedure Procedure Detail Performing Clinician Start: 06-06-2025 RECURRENT VAGINITIS (HTRX) Edgardo Solis DO Work Phone: Start: 06-06-2025 End: 06-06-2025 Urnls dip stick/tablet rgnt non-auto w/o micrscp Regina HINDS Work Phone: screening Juanjose marquez Other Diabetes mellitus screening Juanjose Jenkins Other visit Juanjose Jenkins Other Plan of Treatment Date Care Activity Detail Author Start: 07-03-2026 End: 07-03-2026 Patient encounter procedure 07/03/2026 9:00 AM EDT Procedure Visit [facility] [address] [place] [address] Regina Hernandez PA [address] [place] [address] [facility] Start: 07-05-2025 End: 07-05-2025 Professional / ancillary services management 07/05/2025 8:00 AM EDT Ancillary Procedure [facility] [address] [place] [address] [facility] Start: 06-30-2025 End: 06-30-2025 Patient encounter procedure 06/30/2025 8:30 AM EDT Procedure Visit [facility] ROJASN [address] [facility] [id number] Regina Hernandez PA [address] [place] [address] [facility]O Andrade [facility] Start: 06-23-2025 End: 06-23-2025 Professional / ancillary services management 06/23/2025 10:00 AM EDT Ancillary Procedure [facility] [address] [facility] [place] [address] [facility] Start: 06-06-2025 End: 12-07-2025 US Pelvis US Pelvis w/ TV Imaging Routine Pelvic pain in female Expected: 06/06/2025, Expires: 12/07/2025 [facility] Comment on above: Expected: 06/06/2025 , Expires: 12/07/2025 Start: 06-06-2025 End: 06-06-2025 Patient encounter procedure 06/06/2025 8:40 AM EDT Office Visit [facility]ER [address] [facility] [phone] Regina Hernandez, PA [address] [place] [address] Arrived [facility] Comment on above: Arrived CHLAMYDIA TRACHOMATI S (GENITO/STI) CHLAMYDIA TRACHOMATIS (GENITO/STI) Lab Routine Pelvic pain in female Ordered: 06/06/2025 [facility] Comment on above: Ordered: 06/06/2025 Cytology Cervical or vaginal smear or scraping study Pap Smear Pathology and Cytology Routine Well woman exam with routine gynecological exam Ordered: 06/30/2025 [facility] Work Phone: Comment on above: Ordered: 06/30/2025 Neisseria gonorrhoea e DNA [Presence] in Unspecified specimen by KALANI with probe detection Neisseria gonorrhea DNA probe, direct Lab Routine Pelvic pain in female Ordered: 06/06/2025 [facility] Comment on above: Ordered: 06/06/2025 SURESWAB(R) ADVANCED VAGINITIS PLUS, TMA SURESWAB(R) ADVANCED VAGINITIS PLUS, TMA Pathology and Cytology Routine Pelvic pain in female Ordered: 06/06/2025 [facility] Work Phone: Comment on above: Ordered: 06/06/2025 Payers Date Payer Category Payer [facility] BCBS [id number] 2025 Unknown [id number] 2024 Self-pay 2022 [facility] [id number] 1998 Unknown [id number] 1998 Unknown [id number] 1998 Unknown [id number] 1998 Unknown [id number] 1998 Unknown [id number] 1998 Unknown [id number] 1959 Unknown [id number] 1959 Unknown [id number] 1959 Unknown [id number] 1959 Unknown [id number] Unknown Unknown [place]an BC/BS [id number] Unknown [id number] Social History Date Type Detail Facility Unknown if ever smoked [employer] Other Start: 08-11-2023 End: 06-30-2025 Sex Assigned At [facility] [employer] Other Start: 01-07-2024 End: 05-03-2024 Tobacco smoking status IAIS Smoker (finding) [facility] Start: 2000 Sex Assigned At Female [facility] Start: 08-11-2023 End: 05-03-2024 Tobacco smoking status [facility] Smokes tobacco daily (finding) [facility] Sex Female (finding) [facility] History of tobacco use Cigarette Smoker [facility] Start: 08-11-2023 End: 06-30-2025 Alcoholic beverage intake Current drinker of alcohol (finding) [facility] Start: 08-11-2023 End: 06-30-2025 History of Social function [facility] How often to you hav e a drink containing alcohol? Monthly or less [facility] How many standard drinks containing alcohol do you have on a typical day? 1 or 2 [facility] How often do you hav e 6 or more drinks on 1 occasion? Never [facility] Start: 08-11-2023 Alcohol Comment Caffeine intake: yes, soda [facility] Start: 2000 Sex assigned at Not on file [facility] Start: 01-01-2023 Gender identity Identifies as female gender (finding) [facility] Start: 01-01-2023 Sexual orientation Choose not to disclose [facility] Clinical Notes 07-01-2022 to 06-30-2025 GUZMAN Yañez - 06/30/2025 8:30 AM GUZMAN Tovar - 06/06/2025 8:40 AM EDT Note Date & Type Note Facility 06-30-2025 History of Present illness Narrative Reason for Appointment: Patient ID: Tracey Wallace is a 25 y.o. female who presents for Well Women Visit Patient presents today for Annual Exam. MEDICATIONS Current Outpatient Medications Medication Instructions etonogestrel-eluting (Nexplanon) 68 mg contraceptive implant 1 each, Once valACYclovir (Valtrex) 500 MG tablet Pt to take one tablet twice a day for 10 days and then daily thereafter ALLERGIES Allergies Allergen Reactions Ceftibuten Hives Amoxicillin Rash Macrobid [Nitrofurantoin] Hives PROBLEMS Active Ambulatory Problems Diagnosis Date Noted No Active Ambulatory Problems Resolved Ambulatory Problems Diagnosis Date Noted No Resolved Ambulatory Problems Past Medical History: Diagnosis Date BMI 27.0-27.9,adult Depression Encounter for Nexplanon removal Negative test Nexplanon insertion Suicide attempt ([facility]) 2013 Unprotected sex UTI symptoms HISTORY PAST MEDICAL HISTORY SOCIAL HISTORY Past Medical History: Diagnosis Date BMI 27.0-27.9,adult Depression Encounter for Nexplanon removal Negative test Nexplanon insertion Suicide attempt ([facility]) 2013 Rescued Unprotected sex UTI symptoms Social History Tobacco Use Smoking status: Every Day Current packs/day: 0.50 Types: Cigarettes Smokeless tobacco: Not on file Substance Use Topics Alcohol use: Yes Comment: Caffeine intake: yes, soda Drug use: Yes Types: Methamphetamines Comment: Mother states she did yesterday (noted 12/12/22 on [facility]) FAMILY HISTORY Family History Problem Relation Name Age of Onset No Known Problems Mother No Known Problems Father COPD Other Grandmother Hypertension Other Grandmother Coronary artery disease Other Grandmother Hepatitis Other Grandmother SURGICAL HISTORY History reviewed. No pertinent surgical history. REVIEW OF SYSTEMS Review of Systems: Review of Systems Constitutional: Negative. HENT: Negative. Eyes: Negative. Respiratory: Negative. Cardiovascular: Negative. Gastrointestinal: Negative. Genitourinary: Negative. Musculoskeletal: Negative. Skin: Negative. Neurological: Negative. All other systems reviewed and are negative. Hematological: Negative. Endocrine: Negative. Allergic/Immunologic: Negative. OBJECTIVE Objective: Physical Exam Constitutional: Appearance: Normal appearance. She is well-developed. Genitourinary: Vulva normal. Right Adnexa: not tender and no mass present. Left Adnexa: not tender and no mass present. No cervical discharge. Breasts: Breasts are soft. Right: Normal. Left: Normal. HENT: Head: Normocephalic. Nose: Nose normal. Mouth/Throat: Mouth: Mucous membranes are moist. Cardiovascular: Rate and Rhythm: Normal rate and regular rhythm. Pulmonary: Effort: Pulmonary effort is normal. Breath sounds: Normal breath sounds. Abdominal: General: Bowel sounds are normal. There is no distension. Palpations: Abdomen is soft. Tenderness: There is no abdominal tenderness. There is no guarding or rebound. Musculoskeletal: General: No swelling. Normal range of motion. Cervical back: Normal range of motion. Right lower leg: No edema. Left lower leg: No edema. Neurological: General: No focal deficit present. Mental Status: She is alert and oriented to person, place, and time. Skin: General: Skin is warm and dry. Psychiatric: Mood and Affect: Mood normal. Behavior: Behavior normal. Vitals and nursing note reviewed. Exam conducted with a breakdown man present. Vitals: Estimated body mass index is 30.12 kg/m as calculated from the following: Height as of 12/12/22: 5' 1 . Weight as of this encounter: 159 lb 6.4 oz. BP: 100/60 No LMP recorded (lmp unknown). Patient has had an implant. ASSESSMENT & PLAN ICD-10-CM 1. Well woman exam with routine gynecological exam Z01.419 Pap Smear 2. Pelvic pain in female R10.2 Annual Exam: Patient presents today for an annual exam. Patient states she is doing well and has no complaints. Pap was obtained without difficulty. Patient does have pelvic pain on the left side and this is with intercourse. Patient does have a ultrasound scheduled. Follow Up: Patient is to return in one year for annual unless needed otherwise. Documented by July Childs LPN on behalf of: GUZMAN Yañez documented in this encounter [facility] 06-06-2025 History of Present illness Narrative Reason for Appointment: Patient ID: Tracey Wallace is a 24 y.o. female who presents for Pelvic Pain Patient presents today for Acute Visit. MEDICATIONS Current Outpatient Medications Medication Instructions etonogestrel-eluting (Nexplanon) 68 mg contraceptive implant 1 each, Subdermal, Once valACYclovir (Valtrex) 500 MG tablet Pt to take one tablet twice a day for 10 days and then daily thereafter venlafaxine XR (EFFEXOR XR) 37.5 mg, Oral, Daily ALLERGIES Allergies Allergen Reactions Ceftibuten Hives Amoxicillin Rash Macrobid [Nitrofurantoin] Hives PROBLEMS Active Ambulatory Problems Diagnosis Date Noted No Active Ambulatory Problems Resolved Ambulatory Problems Diagnosis Date Noted No Resolved Ambulatory Problems Past Medical History: Diagnosis Date BMI 27.0-27.9,adult Depression Encounter for Nexplanon removal Negative test Nexplanon insertion Suicide attempt ([facility]) 2013 Unprotected sex UTI symptoms HISTORY PAST MEDICAL HISTORY SOCIAL HISTORY Past Medical History: Diagnosis Date BMI 27.0-27.9,adult Depression Encounter for Nexplanon removal Negative test Nexplanon insertion Suicide attempt ([facility]) 2013 Rescued Unprotected sex UTI symptoms Social History Tobacco Use Smoking status: Every Day Current packs/day: 0.50 Types: Cigarettes Smokeless tobacco: Not on file Substance Use Topics Alcohol use: Yes Comment: Caffeine intake: yes, soda Drug use: Yes Types: Methamphetamines Comment: Mother states she did yesterday (noted 12/12/22 on [facility]) FAMILY HISTORY Family History Problem Relation Name Age of Onset No Known Problems Mother No Known Problems Father COPD Other Grandmother Hypertension Other Grandmother Coronary artery disease Other Grandmother Hepatitis Other Grandmother SURGICAL HISTORY No past surgical history on file. REVIEW OF SYSTEMS Review of Systems: Review of Systems Constitutional: Negative. HENT: Negative. Eyes: Negative. Respiratory: Negative. Cardiovascular: Negative. Gastrointestinal: Negative. Genitourinary: Negative. Musculoskeletal: Negative. Skin: Negative. Neurological: Negative. All other systems reviewed and are negative. Hematological: Negative. Endocrine: Negative. Allergic/Immunologic: Negative. OBJECTIVE Objective: Physical Exam Constitutional: Appearance: Normal appearance. She is normal weight. HENT: Head: Normocephalic. Cardiovascular: Rate and Rhythm: Normal rate. Pulses: Normal pulses. Pulmonary: Effort: Pulmonary effort is normal. Breath sounds: Normal breath sounds. Abdominal: Palpations: Abdomen is soft. Musculoskeletal: General: Normal range of motion. Neurological: General: No focal deficit present. Mental Status: She is alert and oriented to person, place, and time. Psychiatric: Mood and Affect: Mood normal. Behavior: Behavior normal. Thought Content: Thought content normal. Judgment: Judgment normal. Vitals and nursing note reviewed. Vitals: Estimated body mass index is 30.47 kg/m as calculated from the following: Height as of 12/12/22: 5' 1 . Weight as of this encounter: 161 lb 4 oz. BP: 110/62 No LMP recorded (lmp unknown). Patient has had an implant. ASSESSMENT & PLAN ICD-10-CM 1. Pelvic pain in female R10.2 POCT urinalysis dipstick manually resulted SURESWAB(R) ADVANCED VAGINITIS PLUS, TMA CHLAMYDIA TRACHOMATIS (GENITO/STI) Neisseria gonorrhea DNA probe, direct Nexplanon Insertion: Patient presents today for a Nexplanon Insertion. I have reviewed/educated patient on form of contraception and patient has been made aware that Nexplanon does not prevent the contraction of STD/STI's. Patient desires to move forward with Nexplanon insertion and written consent was obtained. Patient was placed in supine position with right elbow flexed by head. Skin was marked with pen indicating insertion site. Skin was then cleansed with betadine and 3cc of lidocaine without epinephrine was injected under the skin. While allowing sufficient numbing time to take effect, the Nexplanon device was removed from it's sterile packaging and found to be in good working order. Nexplanon implant was visualized in the sheath. The skin was held taut while the Nexplanon needle device was gently inserted underneath. After Nexplanon was deployed, the insertion device was discarded in the sharps container. The Nexplanon was palpated by both provider and patient. The insertion site was covered with sterile gauze. Good hemostasis was noted. Post-procedure instructions were given. Follow Up: Patient is to return to the office as needed for any routine appointments/concerns with Nexplanon Documented by Merary Mtz MA on behalf of: GUZMAN Yañez documented in this encounter [facility] 08-07-2024 Note Hospital Medicine Discharge Summary Final Discharge Diagnosis: Evaded troponin likely secondary to demand ischemia in the setting of polysubstance use Polysubstance use ? Hematemesis Major depressive disorder, recurrent, severe Anxiety Admission Diagnosis: Elevated troponin [R79.89] Hospital course: Tracey Wallace is an 24 y.o. female who came from [facility] with NSTEMI, adverse effect of cocaine, coffee ground emesis, hemoptysis. Patient had presented earlier today to [facility] ED with symptoms that began this AM including nausea, vomiting, and diarrhea. Patient with recent discharge from an IP detox/rehab facility admitted to use of drug use/abuse yesterday including pills opiates, and cocaine. She woke um this AM with severe nausea and notices coffe-ground emesis. At time of presentation to [place] ED, patient denied any pain or discomfort other than severe N/V. She was initially tachycardic and tachypnic with an elevated troponin, however denied chest pain. ECG showed sinus rhythm w/o ST elevation or depression. XR chest negative for any acute pathologies. Hgb 13 and patient responded well to zofran and pepcid for N/V. Patient transferred here to [facility] for after 3rd troponin still rising. On presentation to [facility], troponin was 0.34, which trended down. Patient was initially started on heparin infusion due to concern for ACS, she had questionable hemoptysis/hematemesis. Heparin infusion was discontinued and GI was consulted. Patient remained vitally stable, had no further episodes of hematemesis, hemoglobin was stable, outpatient follow-up with GI was recommended. Since patient had no chest pain during hospital stay, troponin trended down, no cardiac catheterization was warranted and patient was advised outpatient follow-up with cardiology. Psychiatry was also consulted, patient started on escitalopram and hydroxyzine continued. Patient advised outpatient follow-up with addiction medicine. Surgical, Invasive or Diagnostic Procedures Done During Admission: None Consultations During Admission: Cardiology, Gastroenterology, and Psychiatry Dear Dr. Alice MD, Tracey is advised to follow up with you within 1-2 weeks. Items to follow up in ambulatory setting: None Follow-up with: Cardiology, Gastroenterology, and Psychiatry Scheduled appointments: Future Appointments Date Time Provider Department Center 08/09/2024 11:30 AM [facility] OPERATING ROOM 09 [facility] OR [facility] 08/10/2024 3:00 PM QUINN Alfaro [facility] 09/01/2024 2:30 PM Cabrera Guy NP [facility] Your medication list START taking these medications Instructions Last Dose Given Next Dose Due escitalopram 10 mg tablet Commonly known as: Lexapro Start taking on: August 08, 2024 Take 1 tablet (10 mg) by mouth in the morning for 98 doses. Do not start before August 08, 2024. pantoprazole 40 mg EC tablet Commonly known as: ProtoNix Start taking on: August 08, 2024 Take 1 tablet (40 mg) by mouth before breakfast for 97 doses. Do not crush, chew, or split. Do not start before August 08, 2024. STOP taking these medications venlafaxine 50 mg tablet Commonly known as: Effexor Where to Get Your Medications These medications were sent to [facility] - [place], [place] - [address] [place] [address] [place] [address], [facility] [address] escitalopram 10 mg tablet pantoprazole 40 mg EC tablet Tracey has no allergies on file. Disposition: Home or Self Care () Discharge Condition: Good Code Status: Full Code Diagnostic Results Hematology: Results from last 7 days Lab Units 08/07/24 0345 08/06/24 0343 08/05/24 2144 WBC AUTO 10*3/uL 7.03 8.85 -- HEMOGLOBIN g/dL 12.4 11.5* -- HEMATOCRIT % 38.2 35.7* -- MCV fL 92.3 93.7 -- PLATELETS AUTO 10*3/uL 256 238 -- INR -- -- 1.02 Chemistry: Results from last 7 days Lab Units 08/05/24 2143 SODIUM mmol/L 136 POTASSIUM mmol/L 3.7 CHLORIDE mmol/L 103 CO2 mmol/L 25 BUN mg/dL 10 CREATININE mg/dL 0.55* GLUCOSE mg/dL 73 MAGNESIUM mg/dL 1.8* CALCIUM mg/dL 8.4* PHOSPHORUS mg/dL 2.6 Results from last 7 days Lab Units 08/05/24 2143 AST U/L 16 ALT U/L 12 ALK PHOS U/L 41 BILIRUBIN TOTAL mg/dL 0.5 Test Results Pending At Discharge: Diet at the time of discharge: regular diet Nutrition Screen Activity: Patient currently has no discharge activity orders Objective Blood pressure 105/71, pulse 91, temperature 37 ???C (98.6 ???F), temperature source Temporal, resp. rate 16, height 1.575 m (5' 2 ), weight 81.6 kg (180 lb), SpO2 100 %. General: Alert and oriented x3. Cardiology: Normal rate, regular rhythm. Lungs: Clear to auscultation, no wheezes, rales or rhonchi, symmetric air entry. Abdomen: Soft, non tender, non distended. Total time for discharge - review of data, exam, discussion with providers and care-tea (more content not included)... [facility] 08-07-2024 Note Attestation signed by Rick De La Paz MD at 08/07/2024 10:58 PM By using the attestations below, the signing clinician agrees that I have read and verify that the documentation has been personally reviewed by me and ensure that the documentation accurately reflects the encounter. GC: I personally saw this patient on the day of the encounter, performed the mancia portion(s) of the service and participated in the management and confirm the resident's documentation. Please note there may be an additional personal documentation from me. Additional Comments: Psychiatry Service - Followup Note Patient Name: Tracey Wallace MRN / CSN: [id number] Date of / Age: 9 2000 / 24 y.o. / female Encounter Date: 08/07/24 Primary Care Physician: Juanjose Jenkins MD Tracey Wallace is a 24 y.o. female with psychiatric diagnoses of: major depressive disorder and generalized anxiety disorder and no significant medical history originally presenting to the [facility] Emergency Room on 08/05/2024 for evaluation of NSTEMI with persistent troponin elevation, coffee ground emesis, and recent polysubstance use. Psychiatry was consulted for management of suicide risk assessment, medication management, and management of polysubstance use disorder . Summary ER Course Abnormal Labs Reviewed COMPREHENSIVE METABOLIC PANEL - Abnormal; Notable for the following components: Result Value Creatinine 0.55 (*) Calcium 8.4 (*) All other components within normal limits MAGNESIUM - Abnormal; Notable for the following components: Magnesium 1.8 (*) All other components within normal limits D-DIMER, QUANTITATIVE - Abnormal; Notable for the following components: D-Dimer, Quant (FEU) 2.05 (*) All other components within normal limits Narrative: D-Dimer values of less than 0.50 ug/ml (FEU) are considered to be a negative predictor of thrombosis. However, the D-Dimer result should be used in conjunction with pretest probability and should not be used alone to diagnose a thrombotic event. LACTIC ACID WITH 4 HOUR REFLEX - Abnormal; Notable for the following components: Lactate 0.4 (*) All other components within normal limits TROPONIN I - Abnormal; Notable for the following components: Troponin I 0.34 (*) All other components within normal limits TROPONIN I - Abnormal; Notable for the following components: Troponin I 0.27 (*) All other components within normal limits CBC WITH AUTO DIFFERENTIAL - Abnormal; Notable for the following components: Auto WBC 11.06 (*) Hemoglobin 11.9 (*) Hematocrit 35.3 (*) All other components within normal limits TOXICOLOGY PANEL URINE - Abnormal; Notable for the following components: Amphetamine+Methamphetamine Screen, Ur Positive (*) All other components within normal limits ANTI-XA (HEPARIN LEVEL) - Abnormal; Notable for the following components: Anti-Xa (Heparin) 0.26 (*) All other components within normal limits TROPONIN I - Abnormal; Notable for the following components: Troponin I 0.24 (*) All other components within normal limits CBC - Abnormal; Notable for the following components: Hemoglobin 11.5 (*) Hematocrit 35.7 (*) All other components within normal limits Utox: Amphetamine (+) Cocaine (-); patient endorsed use of cocaine to interviewer. Opiate (-); patient endorses use of heroin and fentanyl. EtOH Level 14 Imaging for last 3 days: No X-ray results found for the past [address] results found for the past 3 days No MRI results found for the past 3 days Reported Behavior: Calm and cooperative with staff, slight agitation noted during interview. PRN Medications Administered: Atorvastatin 10 mg Pantoprazole 40 mg Medical Course: 08/06: - Persistently elevated troponin levels, patient is scheduled for an EDG for r/o of GI bleed Friday. - Reported Behavior: Calm and cooperative with staff, observed to be laying in bed comfortably, not in any acute stress. Psychiatric Course: 08/06: - Discontinue home medication Venlafaxine 75 mg PO Daily - Initiate escitalopram 10 mg PO daily - Continue home medication Hydroxyzine 50 mg PO nightly 08/07: - Initiate Gabapentin 300 mg PO TID for management of opiate withdrawal, proceeding clearance from primary medical team and cardiology given the patient's serially elevated troponin on admission. Subjective Overnight Events: No acute events overnight. PRN Medications: None Nursing Report: Nursing reports patient was calm and cooperative overnight, appearing to be sleeping throughout the shift. Patient: Patient was seen and examined at bedside, and appeared to be lying comfortably upon entering the room. Patient states that she feels pretty shitty this morning. This is mostly due to here coming to realize her curren (more content not included)... [facility] 08-07-2024 Note Attestation signed by Henri Pruett MD at 08/07/2024 4:46 PM By using the attestations below, the signing clinician agrees that I have read and verify that the documentation has been personally reviewed by me and ensure that the documentation accurately reflects the encounter. GC: I personally saw this patient on the day of the encounter, performed the mancia portion(s) of the service and participated in the management and confirm the resident's documentation. Please note there may be an additional personal documentation from me. Additional Comments: I have reviewed the details of this patient and her presentation She was admitted after multiple drug use and polysubstance abuse Her tox screen is positive for amphetamine /methamphetamine She had nausea and vomiting In the setting she has low-level troponin elevation given her very young age of only 24 years old I believe this is a nonspecific troponin elevation in the setting of medical illness related to drug abuse and vomiting I do not recommend invasive coronary angiogram and believe the risks of invasive coronary angiogram outweigh any potential benefits We will sign off Patient stable for discharge from cardiovascular perspective Cardiology Consult Note Reason for Consult: Chest pain and elevated troponin HPI: Tracey Wallace is a 24 y.o. female with PMHx of recreational drug abuse, anxiety, and depression who presents to hospital as a transfer [facility] due to nausea, coffee ground emesis, and chest pain. Pt was recent discharged from rehab and decided to do multiple drugs. Pt reports she drank a bunch of alcohol and took a bunch of pills and snorted multiple drugs including: cocaine, oxycodone, benzos such as Xanax, methamphetamines, adderall, marijuana, and snuff per the pt in the last day. Pt reports she also will occasionally use heroin and fentanyl. After using a mixture of drugs and alcohol, pt reports and episode of coffee-ground emesis and a pressure-like chest pain. Pt reports no addtl episodes of emesis since the addtl episode. Pt reports this morning she had a recurrence of the chest pain. Pt had a troponin trend of 0.34, 0.27, and 0.24 at our hospital. Initial troponin at [place] (high-sensitivity troponin)- was 200 then 3 hours later changed to 500, repeat troponin 3 hours after that came back at 759.4. Serial EKGs show pt is in normal sinus rhythm without any ST elevations or depressions. Interval Hx: Pt seen and examined this morning. Pt denies chest pain, dyspnea, nausea, vomiting, abdominal pain, and dizziness. Past Medical History She has a past medical history of Anxiety. Surgical History She has no past surgical history on file. Social History She reports that she has been smoking cigarettes. Her smokeless tobacco use includes snuff. She reports that she does not currently use alcohol. She reports current drug use. Drugs: Cocaine, Marijuana, and Oxycodone. Family History Family History No family history on file. Allergies Patient has no allergy information on record. Medications Prescriptions Prior to Admission Medications Prior to Admission Medication Sig Dispense Refill Last Dose venlafaxine (Effexor) 50 mg tablet Take 50 mg by mouth 1 (one) time. Current Medications Current Facility-Administered Medications Medication Dose Route Frequency Provider Last Rate Last Admin aspirin EC tablet 81 mg 81 mg oral Daily Simi Kerr NP atorvastatin (Lipitor) tablet 10 mg 10 mg oral Nightly Simi Kerr NP 10 mg at 08/05/24 2220 diphenhydrAMINE (BENADryl) injection 25 mg 25 mg intravenous q6h PRN Simi Kerr NP heparin infusion 100 units/mL in D5W 0-28 Units/kg/hr intravenous Continuous Simi Kerr NP 13.1 mL/hr at 08/06/24 0520 16 Units/kg/hr at 08/06/24 0520 [Held by provider] lisinopril tablet 2.5 mg 2.5 mg oral Daily Simi Kerr NP [Held by provider] metoprolol tartrate (Lopressor) tablet 25 mg 25 mg oral BID Simi Kerr NP nitroglycerin (Nitrostat) SL tablet 0.4 mg 0.4 mg sublingual q5 min PRN Simi Kerr NP Oxygen Therapy inhalation Continuous Simi Kerr NP pantoprazole (ProtoNix) injection 40 mg 40 mg intravenous Daily before breakfast Simi Kerr NP Or pantoprazole (ProtoNix) EC tablet 40 mg 40 mg oral Daily before breakfast Simi Krer NP 40 mg at 08/06/24 0631 sodium chloride flush 10 mL 10 mL intravenous q8h PRN Simi Kerr NP Last Recorded Vitals Patient Vitals for the past 24 hrs: BP Temp Temp src Pulse Resp SpO2 Height Weight 08/06/24 0805 91/59 37.3 ???C (99.1 ???F) Temporal 69 16 99 % -- -- 08/06/24 0400 103/65 37 ???C (98.6 ???F) Temporal 80 17 100 % -- -- 08/06/24 0000 101/68 37.1 ???C (98.8 ???F) Temporal 82 15 98 % -- -- 08/05/24 2100 105/68 37.4 ???C (99.3 ?? (more content not included)... [facility] 08-06-2024 Note 08/06/24 1618 Admission Assessment Questions Verify insurance with patient Yes Do you understand medical disease or what brought you into the hospital? No Who is your current PCP? Juanjose Jenkins MD Can I schedule a follow up appointment for you at the time of discharge? No Do you understand why you are taking your current medications? Yes Are you taking your medications as prescribed? Yes Did patient provide teach back? No Pharmacy Bedside Delivery Status Interested Does the patient have a correctional case manager assigned to them through their insurance? No Living Arrangement (Current/Prior to Hospitalization) Private residence Does the patient have history of HHC or SNF? No Assistive Device Not applicable Patient's goal for discharge Return home Was patient reminded that goal for discharge is 11am? No Does the patient have transportation at discharge? Yes Type of Residence Private residence Is PT/OT appropriate? No Is PT/OT ordered? No Is SW consult appropriate? Yes Is SW consult ordered? No Do you understand the benefits of MyChart? Yes Were you able to send link and activate MyChart? Yes [facility] 08-06-2024 Note Hospital Medicine Daily Progress Note - 08/06/2024 2:58 PM; Room: [address] [place] [address] Admission: 08/05/2024 8:44 PM; Length of stay: 1 days THE HOSPITALIST TEAM PREFERS TO USE [employer] CHAT FOR NON-URGENT COMMUNICATION 7AM-7PM. IF I DO NOT RESPOND WITHIN 20 MINUTES OR URGENT MATTERS, PLEASE CALL THROUGH THE VICE PRESIDENT INDUSTRIAL RELATIONS. FROM 7PM-7AM, PLEASE PAGE [phone](COVR). Code Status: Full Code Barriers to Discharge: Cardiac cath, GI consult Expected Discharge Date: 2 to 3 days Discharge Destination: home Overview Patient is seen for evaluation and management of chest pain, hematemesis. Subjective Patient was seen and examined at bedside this morning. She was alert awake and oriented. She denied any active complaints. Patient denied explicitly any kind of chest pain/burning in the chest, regurgitation symptoms. During the day, patient reported bloody emesis. Heparin infusion was discontinued, patient started on Protonix and GI consulted. Hemoglobin and vitals have been stable. Physical Exam Visit Vitals BP 121/77 Pulse 67 Temp 37.3 ???C (99.1 ???F) (Temporal) Resp 14 Intake/Output Summary (Last 24 hours) at 08/06/2024 1458 Last data filed at 08/06/2024 1403 Gross per 24 hour Intake 725.87 ml Output 600 ml Net 125.87 ml Physical Exam Constitutional: Appearance: Normal appearance. Cardiovascular: Rate and Rhythm: Normal rate and regular rhythm. Pulses: Normal pulses. Heart sounds: Normal heart sounds. Pulmonary: Effort: Pulmonary effort is normal. Breath sounds: Normal breath sounds. Abdominal: General: Abdomen is flat. Palpations: Abdomen is soft. Musculoskeletal: General: Normal range of motion. Skin: General: Skin is warm. Neurological: General: No focal deficit present. Mental Status: She is alert and oriented to person, place, and time. Estimated body mass index is 32.92 kg/m??? as calculated from the following: Height as of this encounter: 1.575 m (5' 2 ). Weight as of this encounter: 81.6 kg (180 lb). Active Inpatient Problems Principal Problem: NSTEMI (non-ST elevated myocardial infarction) ([facility]) Active Problems: Elevated troponin Hemoptysis Nausea Coffee ground emesis Hypertension Anxiety Depression Drug abuse ([facility]) Assessment and Plan NSTEMI in the setting of polysubstance use Continue to trend troponin Noted plans for cardiac cath per cardiology Hematemesis Discontinue heparin infusion. Start patient on Protonix twice a day Consult GI Keep patient n.p.o. Major depressive disorder Anxiety Continue home medications Psychiatry following. Polysubstance abuse refer to addiction medicine on discharge. Essential hypertension Hold antihypertensives since blood pressure is borderline. VTE Prophylaxis: Contraindicated due to GI bleed Scheduled Meds [Held by provider] aspirin, 81 mg, oral, Daily atorvastatin, 10 mg, oral, Nightly [Held by provider] lisinopril, 2.5 mg, oral, Daily [Held by provider] metoprolol tartrate, 25 mg, oral, BID Oxygen Therapy, , inhalation, Continuous pantoprazole, 40 mg, intravenous, Daily before breakfast Or pantoprazole, 40 mg, oral, Daily before breakfast [START ON 08/07/2024] venlafaxine XR, 75 mg, oral, Daily with breakfast Pertinent Investigations Hematology: Results from last 7 days Lab Units 08/06/24 0343 08/05/24214308/05/242142 WBC AUTO 10*3/uL 8.85 -- 11.06* HEMOGLOBIN g/dL 11.5* -- 11.9* HEMATOCRIT % 35.7* -- 35.3* MCV fL 93.7 -- 91.5 PLATELETS AUTO 10*3/uL 238 -- 278 INR -- 1.02 -- Chemistry: Results from last 7 days Lab Units 08/05/242142 SODIUM mmol/L 136 POTASSIUM mmol/L 3.7 CHLORIDE mmol/L 103 CO2 mmol/L 25 BUN mg/dL 10 CREATININE mg/dL 0.55* GLUCOSE mg/dL 73 MAGNESIUM mg/dL 1.8* CALCIUM mg/dL 8.4* PHOSPHORUS mg/dL 2.6 Results from last 7 days Lab Units 08/05/242142 AST U/L 16 ALT U/L 12 ALK PHOS U/L 41 BILIRUBIN TOTAL mg/dL 0.5 Historical Values: (Includes values prior to this admission) No results found for: PREALBUMIN , TSH , T3FREE , FREET4 , CORTISOL , FEV1 , ZGH5LAP , DLCO , RVSP , HDL , LDL No results found for: [id number] , IRON , TIBC , C3 , C4 , NANDA , CANCA , ASO , PSA , CEA , CA125 , CA199 , AFP , CA153 Imaging ECG 12 lead Sinus rhythm with marked sinus arrythmia Otherwise normal ECG When compared with ECG of 06-AUG-2024 06:58, No significant change was found Confirmed by Taylor CLEMONS, L.S. (2) on 08/06/2024 2:35:22 PM ECG 12 lead Normal sinus rhythm with sinus arrhythmia Normal ECG No previous ECGs available Confirmed by Srikanth Nichols ([id number]) on 08/06/2024 8:52:18 AM Discharge Planning Expected Discharge Disposition: Home or Self Care () Signed Sandra Wheeler MD [facility] Medicine 08/06/2024 2:58 PM [facility] 08-06-2024 Note See Behavioral SW as sessment note for SW consult for Substance abuse. Consult completed. [facility] 08-06-2024 Note Clinical Therapist B ri Intervention Note Substance Intervention: Raise the Subject: Clinician introduced self and asked permission to discuss substance use screening score. Pt agreed. Pt stated she was recently discharged from an outpatient tx facility that she had been at for a couple months, [facility]. Pt states she had completed PHP and was currently in IOP but was discharged due to failing a drug test. Pt states they referred her to [place] but she was unable to schedule a follow up, states she called and they did not call her back. As a result pt states she began using within a day or so after her most recent discharge from [facility]- states she was mixing a bunch of drugs together. Pt presents ambivalent about treatment- knows she needs help, but lacked motivation to go through another treatment program. States she needs to be able to work and does not want to have to do all that again in reference to tx. Provide Feedback: Clinician engaged pt in motivational interviewing to increase stage of change. Clinician discussed the benefits of engaging in different treatment options, offered to schedule an outpatient follow up with BTS department through [facility] to further assess client's need and motivation for treatment. Client was agreeable. Enhance Motivation: pt will follow up with BTS services to complete assessment for outpatient tx Negotiate a Plan: pt will follow up outpatient with BTS post hospital discharge Prescription for Change: wants to change but unsure how Readiness Ruler Exercise Patient's readiness to change was 6 on a scale of 1-10, with 1 being the least ready to change and 10 being the most ready to change. We explored why it was not a lower number and discussed patient's own motivation for change. Patient Goals/Discussion: follow up with outpatient services Referral for Treatment was offered: 7 Day appointment scheduled and Resources provided Audit C Interventions To your knowledge, have drugs or other substances ever caused significant problems for the patient? (e.g., significant distress to patient or those close to patient or impairment in social, occupational, or other important areas of functioning): Yes In total 8 minutes of aggregate personnel time was spent administering and interpreting the screen, plus performing a brief intervention. Assessment completed by: QUINN Alfaro [facility] 08-06-2024 Note Case was discussed w ith the MEL on 08/05/2024. I agree with the history, physical, assessment, and plan of care. I discussed the findings and therapeutic plan. I agree with the documentation, except for any updates below. Rozina Cervantes MD [facility] 08-05-2024 Note Hospital Medicine History and Physical 08/06/2024 5:15 AM THE HOSPITALIST TEAM PREFERS TO USE [employer] [employer] CH[facility] FOR NON-URGENT COMMUNICATION 7AM-7PM. IF I DO NOT RESPOND WITHIN 20 MINUTES OR URGENT MATTERS, PLEASE CALL THROUGH THE VICE PRESIDENT INDUSTRIAL RELATIONS. FROM 7PM-7AM, PLEASE PAGE [phone](COVR). Chief Complaint No chief complaint on file. History of Present Illness Tracey Wallace is an 24 y.o. female who came from [facility] with NSTEMI, adverse effect of cocaine, coffee ground emesis, hemoptysis. Patient had presented earlier today to [facility] ED with symptoms that began this AM including nausea, vomiting, and diarrhea. Patient with recent discharge from an IP detox/rehab facility admitted to use of drug use/abuse yesterday including pills opiates, and cocaine. She woke um this AM with severe nausea and notices coffe-ground emesis. At time of presentation to [place] ED, patient denied any pain or discomfort other than severe N/V. Patient on vraylar 3m cap at bedtime, hydroxyzinbe 50 mg cap at bedtime, prazosin 2mg cap at bedtime, and venlafaxine 75 mg ER capsule daily with NKDA. She was initially tachycardic and tachypnic with an elevated troponin, however denied chest pain. ECG showed sinus rhythm w/o ST elevation or depression. XR chest negative for any acute pathologies. Hgb 13 and patient responded well to zofran and pepcid for N/V. Initial troponin 200, repeat increased to 500. Patient then admitted to further/additional drug use yesterday including cocaine, benzos, methamphetamines, and amphetamines. Patient transferred here to [facility] for after 3rd troponin still rising. Hgb was stable at 12.8 and was started on IV heparin gtt prior to transfer. Lactate was elevated at 2.3, 3rd troponin 759.4. Review of System and Physical Exam Temp: [37 ???C (98.6 ???F)-37.4 ???C (99.3 ???F)] 37 ???C (98.6 ???F) Heart Rate: [76-82] 80 Resp: [15-18] 17 BP: (101-105)/(65-68) 103/65 Physical Exam Vitals and nursing note reviewed. Constitutional: General: She is not in acute distress. Appearance: Normal appearance. She is not ill-appearing, toxic-appearing or diaphoretic. HENT: Head: Normocephalic. Nose: Nose normal. Mouth/Throat: Mouth: Mucous membranes are moist. Pharynx: Oropharynx is clear. Eyes: Extraocular Movements: Extraocular movements intact. Conjunctiva/sclera: Conjunctivae normal. Pupils: Pupils are equal, round, and reactive to light. Cardiovascular: Rate and Rhythm: Normal rate. Rhythm irregular. Pulses: Normal pulses. Heart sounds: Normal heart sounds. Pulmonary: Effort: Pulmonary effort is normal. Breath sounds: Normal breath sounds. No wheezing or rhonchi. Abdominal: General: Bowel sounds are normal. Palpations: Abdomen is soft. Musculoskeletal: Cervical back: Normal range of motion and neck supple. Right lower leg: No edema. Left lower leg: No edema. Skin: General: Skin is warm and dry. Capillary Refill: Capillary refill takes less than 2 seconds. Neurological: General: No focal deficit present. Mental Status: She is alert and oriented to person, place, and time. Psychiatric: Comments: Agitated Review of Systems Constitutional: Negative. Negative for activity change. HENT: Negative. Eyes: Negative. Respiratory: Negative for chest tightness and shortness of breath. Cardiovascular: Negative for chest pain and leg swelling. Gastrointestinal: Positive for diarrhea, nausea and vomiting. Negative for abdominal pain and constipation. Endocrine: Negative. Genitourinary: Negative. Negative for difficulty urinating and dysuria. Musculoskeletal: Negative. Skin: Negative. Negative for pallor and wound. Allergic/Immunologic: Negative. Neurological: Negative. Hematological: Negative. Psychiatric/Behavioral: Positive for suicidal ideas. Problem List Principal Problem: NSTEMI (non-ST elevated myocardial infarction) ([facility]) Active Problems: Elevated troponin Hemoptysis Nausea Coffee ground emesis Hypertension Anxiety Depression Drug abuse ([facility]) Assessment and Plan S-STEMI Elevated Troponin - CBC, CMP, Mag, phos, d-dimer, PT/INR, aPTT - Trend troponin Q4h x 3 occurrences - Continue IV heparin gtt per cardiac protocol - consult cardiology - ECH ordered and pending - stop/hold prazosin, appreciate cardiology insight - start aspirin 81 mg po qam - start lisinopril 2.5 mg tab po qam - start metoprolol tartrate 25 mg tab po BID - start atorvastatin 10 mg tab po at bedtime Depression Anxiety Drug use/abuse -Continue vraylar 3m cap at bedtime -Continue hydroxyzinbe 50 mg cap at bedtime, - Continue venlafaxine 75 mg ER capsule - Consult psych, consult addiciton med - Tox screen ordered and pending Hypertension - stop/hold prazosin, appreciate cardiology insight - start aspirin 81 mg po qam - start lisinopril 2.5 mg tab po qam - start metoprolol tartrate 25 mg tab po BID Nausea (more content not included)... [facility] 11-19-2023 Evaluation note Encounter Date Diagnosis Assessment Notes Oct, Moderate episode of recurrent major depressive disorder (ICD-10 - F33.1) Continue venlafaxine and treatment w [facility] Oct, Low TSH level (ICD-10 - R94.6) Now stablized, recheck if fatigue recurrs in the future Oct, Substance use disorder (ICD-10 - F19.90) Continue outpt treatment w [facility] in [place]. [facility] Other 12-15-2023 Evaluation note* Encounter Date Diagnosis Assessment Notes Treatment Notes Treatment Clinical Notes Sep, Acute pain of left shoulder (ICD-10 - M25.512) Pt did complete PT earlier in 2022 with [facility] PT. She would like to check MRI. Pt has not seen Dr. Castro since PT. Will followup accordingly based on MRI results. MRI Order will be faxed to [facility] [employer] Other 09-15-2023 Evaluation note* Encounter Date Diagnosis Assessment Notes Treatment Notes Treatment Clinical Notes Jun, Acute pain of left shoulder (ICD-10 - M25.512) Order printed for PT. Continue OTC NSAIDs as needed. Discussed appropriate dosing. [employer] Other 08-07-2023 Evaluation note* Encounter Date Diagnosis Assessment Notes Treatment Notes Treatment Clinical Notes May, Major depressive disorder with single episode, in partial remission (ICD-10 - F32.4) Improved, per patient. More energy. Got a job, not staying in as much. States she notes she is at a good level. Rx sent fro 90 days last week. Continue effexor at present dose. [employer] Other 07-31-2023 Evaluation note* Encounter Date Diagnosis Assessment Notes Treatment Notes Treatment Clinical Notes Apr, Moderate episode of recurrent major depressive disorder (ICD-10 - F33.1) [employer] Other 07-12-2023 Evaluation note* Encounter Date Diagnosis Assessment Notes Treatment Notes Treatment Clinical Notes Apr, Allergic contact dermatitis, unspecified trigger (ICD-10 - L23.9) Not certain of any new foods or triggers for this allergic reaction. Denies dyspnea or swelling in oropharynx. Agrees to speech teacher for testing to narrow down possible cause. [employer] Other 01-25-2023 Evaluation note* Encounter Date Diagnosis [...] agrees to Ortho referral for further testing. [employer] Other 09-12-2022 Evaluation note* Encounter Date Diagnosis [...] therapy plan may need to be made. [employer] Other Evaluation noteNort [employer] Other Evaluation noteNo assessment information available [facility] Work Phone: Evaluation note* Diagnosis Onset Date Resolution Status Admit Date Dysuria acute May 27 9:08am [facility] Work Phone: Evaluation note* Diagnosis Pelvic pain in female Unspecified symptom associated with female genital organs STD exposure documented in this encounter [facility] HealthcareEvaluation note* Diagnosis Well woman exam with routine gynecological exam Routine gynecological examination Pelvic pain in female Unspecified symptom associated with female genital organs documented in this encounter [facility] HealthcareHistory general Narrative - Reported* Type Description Date Medical History thyroid yst Medical History goiter Medical History bipolar Medical History hepatitis C Hospitalization History [facility] 2013 [employer] Other History general Narrative - Reported* Type Description Date Medical History thyroid yst Medical History goiter Medical History bipolar Medical History hepatitis C Surgical History LIVER BIOPSY 2019 Hospitalization History [facility] 2013 [employer] Other History general Narrative - ReportedNort4th aspect Other Reason for referral (narrative)No reason for referral information availableProm[facility] Work Phone: Summary Purpose Family History Relationship Condition Age at Onset Recorded Date/T moreno father Unknown Advance Directives Advance Directive Response Recorded Date/ Time Advance Directives No February 19, 2024 10:14am Reason for Referral Reason *FU 05/07 ER visit yesterday and OV today - allergic reaction on face/lips - no known cause. Diagnosis 1 Allergic contact ha matitis, unspecified trigger (L23.9) Referral Organization [facility] [employer] [facility] felicia Referring Provider First Name Juanjose Referring Provider Last Name Alice Referring Provider Specialty [facility] [employer] Referred Organization [facility] Referred Provider Adam Stiles Referred Address ,[place], [place],[address] Referred Provider Specialty Allergy/Immu nology Referral Priority Routine General Notes Noreen Zamora 02:17:19 PM >received today Noreen Zamora 04/30/2023 02:18:00 PM >notes locked, ins attached, referrl faxed Reason 12/12/22 Mitch off ice - OV, PT report, and Xray will be scanned into [facility]. Diagnosis 1 Pain in thoracic spi ne (M54.6) Referral Organization [facility] [employer] [facility] felicia Referring Provider First Name Juanjose Referring Provider Last Name Alice Referring Provider Specialty [facility] [employer] Referred Organization [facility] Referred Provider Yovany Castro Referred Address ,[place], [place],[address] Referred Provider Specialty Orthopedic S urgery Referral [...] F11.20 Chief Complaint F11.20 wellness, med questions Chief Complaint Admit Date BH May 18, 2025 11:0 0am UA:Cramps/Back Pain May 27, 2025 9:0 8am Reason for Visit Admit Date Dysuria May 27, 2025 9:0 8am Additional Source Comments INFORMATION SOURCE (unrecogn ized section and content) DATE CREATED AUTHOR 04/07/2018 [facility] DATE CREATED AUTHOR AUTHOR'S ORGANIZ ATION 04/03/2022 [facility] DATE CREATED AUTHOR AUTHOR'S ORGANIZ ATION 08/10/2024 [facility] DATE CREATED AUTHOR AUTHOR'S ORGANIZ ATION 09/10/2024 [facility] DATE CREATED AUTHOR AUTHOR'S ORGANIZ ATION 06/06/2025 [facility] EPIC DATE CREATED AUTHOR AUTHOR'S ORGANIZ ATION 06/29/2025 [facility] REASON FOR VISIT (unrecogniz ed section and content) Reason Comments Pelvic Pain Reason Comments Well Women Visit Care Teams (unrecognized sec tion and content) Team Status: Active Member Role Status Dates Juanjose Jenkins MD Primary Care Provider Active Team Status: Active Member Role Status Dates Juanjose Jenkins MD Primary Care Provider Active Start: May 18, 2025 Isaac Sampson MD Attending Provider Active Start: May 18, 2025 Team Status: Inactive Member Role Status Dates Juanjose Jenkins MD Primary Care Provider Active Start: May 27, 2025 End: May 27, 2025 Juanjose Jenkins MD Attending Provider Active St art: May 27, 2025 End: May 27, 2025 Team Status: Inactive Member Role Status Dates Asia Sparks NP-Vandana Attending Provider Active Start: February 19, 2024 End: February 19, 2024 Juanjose Jenkins MD Primary Care Provider Active Start: February 19, 2024 End: February 19, 2024 Team Status: Inactive Member Role Status Dates Juanjose Jenkins MD Primary Care Provide r, Attending Provider Active Start: May 03, 2024 End: May 03, 2024 [employer] Relationship Specialty Start Date End Date Juanjose Jenkins MD [address] [facility] [place] [id number] PCP - General Family Medicine 05/01/23 [employer] Relationship Specialty Start Date End Date Juanjose Jenkins MD [address] [facility] [place] [address] PCP - General Family Medicine 05/01/23 [employer] Relationship Specialty Start Date End Date Juanjose Jenkins MD [address] [facility] [place] [address] PCP - General Family Medicine 05/01/23 [employer] Relationship Specialty Start Date End Date Juanjose Jenkins MD [address] [facility] [place] [address] PCP - General Family Medicine 05/01/23 Goals (unrecognized section and content) Goals may [...] BE BASED ON THE PRIMARY CLINICAL RECORDS. [employer] [facility]. provides no warranty or guarantee of the accuracy or completeness of information in this document.
[2025-07-05 10:09] LABS: Age Gdln ACOG Testing Note (.); IGP, rfx Aptima HPV ASCU Note (.)
== END 2025-06-30 08:36 | disposition home or self-care (01) ==
LOC: LAB 08:35
PROVIDERS: PCP Family Medicine; Visit Provider Physician Assistant
DX: Z01.419 Encounter for gynecological examination (general) (routine) without abnormal findings (principal)
CPT/HCPCS: 88175

== ENCOUNTER 2025-10-12 20:05 | Emergency (ER) | payer BC, SELFPAY ==
--- OUTSIDE RECORDS SUMMARY | 2014-10-04 04:55 | XMS_ITS | Continuity of Care Document ---
Author Organization [facility] Address [address] [place] [address] Phone Care Team Providers Care Collar Setter Name Role Phone Joanie Page Unavailable Unavaila ble Allergies, Adverse Reactions, Alerts Substance Reaction Status Criticality Cephalosporins Active No Informatio n Procedures Procedure Date PREV VISIT, NEW, AGE 12-17 [facility] SPECIMEN HANDLING (GC/CHLAMYDIA) Sep Condoms Orthocyclen Advance Directives Directive Yes / No Effective Date File Name Resuscitation Not Answered N/A N/A Life Support Not Answered N/A N/A Intubation Not Answered N/A N/A Antibiotics Not Answered N/A N/A IV Fluid Support Not Answered N/A N/A Tube Feed Not Answered N/A N/A Other Directive N/A N/A WARNING:The information contained in this section is historical and is provided for information only and does not constitute a legal document or any assurance that the information is still accurate. Please verify the information with the carranza of the legal document before using it for clinical purposes. Encounters Encounter Description Practice Location Reason(s) For Visit Diagnoses Date Provider Providers Copied on Encounter [facility], [address], [place], [id number], [place] tel:[phone] [facility] lab result (chief complaint) No Information 4 Dany Nair. [address], [place], [id number] , [place]. tel:[phone] PREV VISIT, NEW, AGE 12-17 [facility], [address], [place], [id number], [place] tel:[phone] [facility] est care (chief complaint) Gynecological ExaminationOther specified contraceptive management 4 Dany [facility] Joanie. [address], [place], [id number] , [place]. tel:[phone] Family History Family Member Type Diagnosis Age At Onset Problem (finding) Family history of heart disease Problem (finding) Family history of cance r Payers Payer name Insurance type Covered alliance party ID Authoriza tion(s) No Information Social History Type Description Quantity Date Captured Comments Alcohol Use Details Unknown Caffeine Use Details Unknown Tobacco Use Status No Information Smoking Status No Information Sex Female Sexual Orientation Straight or heterosexual Chief Complaint And Reason For Visit From encounter dated 10/04/2014 09:55'. lab result (chief complaint) Reason For Referral Reason For Referral No Information History Of Present Illness Encounter Date Complaint History Of Prese nt Illness No Information Functional Status Date Functional Assessmen t No Information Instructions Date Instruction Additional Infor mation No Information Assessments Type Assessment Date No Information Patient Care Teams Name Effective Dates (start - stop) Status Members No Information
[2025-10-12 20:11] VITALS: BP 122/92; PULSE 74; TEMP 37.1; O2SAT 99
--- NOTE | 2025-10-12 20:18 | XR_ITS ---
[place] [id number] Patient Name: ROMAN WILLIAMSON MRN: [id number] date: 2000 Sex: F Assigned Patient Location: ER Current Patient Location: ER Accession/Order Number: [id number] Exam Date: 10/12/2025 08:25 Report Date: 10/12/2025 20:33 At the request of: DEBORAH BROWN MD Procedure: XR chest 2V Plain film chest 2 view HISTORY: Cough COMPARISON: 08/05/2024 FINDINGS: SUPPORT DEVICES: None POSTSURGICAL CHANGES: None HEART: Within normal limits PULMONARY KALPESH: Within normal limits MEDIASTINUM: Unremarkable LUNGS AND PLEURA: No acute lung process, pleural effusion or pneumothorax identified. BONY STRUCTURES: Intact ADDITIONAL FINDINGS None XR/XR chest 2V IMPRESSION: No acute process. Impression dictated by: Chuy Tsang M.D. 10/12/2025 8:33 PM Dictation Location: [place] [address] Electronically authenticated by: [id number] Y Date: 10/12/2025 20:33
--- NOTE | 2025-10-12 20:21 | ED_ITS ---
HPI - URI/Sore Throat General Chief Complaint: Upper Respiratory Infection Stated Complaint: CHEST CONGESTION, SOB, Time Seen by Provider: 10/12/25 20:14 Source: patient History of Present Illness HPI Narrative: ill past 3 days with cough and burning sensation in her chest. Cough is productive. Not short of breath. She does smoke cigarettes and vapes. Denies , abdominal pain. No GI symptoms. No headache Related Data Home Medications ?Medication ?Instructions ?Recorded ?Confirmed escitalopram oxalate 10 mg tablet mg 10/12/25 valacyclovir 500 mg tablet mg 10/12/25 Allergies Allergy/AdvReac Type Severity Reaction Status Date / Time No Known Drug Allergies Allergy Verified 08/05/24 09:28 Review of Systems ROS Status of ROS 10 or more systems reviewed and unremark able except as noted in history and below PFSH PFSH Social History Little interest or pleasure in doing things: not at all Feeling down, depressed, or hopeless: not at all Exam Constitutional Vital Signs, click to edit/add: Last Vital Signs Temp 98.8 F 10/12/25 20:11 Pulse 74 10/12/25 20:11 Resp 18 10/12/25 20:11 BP 122/92 H 10/12/25 20:11 Pulse Ox 99 10/12/25 20:11 O2 Del Method Room Air 10/12/25 20:11 Common normals: no apparent distress, average body habitus, oriented x3, no limitations, healthy appearing, alert and well nourished [facility] Common normals: normocephalic and head/scalp atraumatic Eye Common normals: PERRL, EOMs intact bilaterally and conjunctivae normal Respiratory Common normals: normal respiratory effort, no retractions, no use of accessory muscles and clear to auscultation bilaterally Cardio Common normals: regular rate, regular rhythm, S1 normal heart sound and S2 normal heart sound GI Common normals: Normal to inspection, nondistended, normoactive bowel sounds present, soft to palpation and non-tender Extremity Common normals: normal to inspection and full ROM Neuro Common normals: oriented x3, CN's II-XII intact bilaterally, moves all extremities and no focal motor deficits Psych Appearance: grossly normal Course Vital Signs Vital signs: Vital Signs Temperature 98.8 F 10/12/25 20:11 Pulse Rate 74 10/12/25 20:11 Respiratory Rate 18 10/12/25 20:11 Blood Pressure 122/92 H 10/12/25 20:11 Pulse Oximetry 99 10/12/25 20:11 Oxygen Delivery Method Room Air 10/12/25 20:11 Temperature 98.8 F 10/12/25 20:11 Pulse Rate 74 10/12/25 20:11 Respiratory Rate 18 10/12/25 20:11 Blood Pressure 122/92 H 10/12/25 20:11 Pulse Oximetry 99 10/12/25 20:11 Oxygen Delivery Method Room Air 10/12/25 20:11 MDM - URI/Sore Throat MDM Narrative Medical decision making narrative: patient ill for 3 days with cough. burning sensation in her chest . No short of breath. Exam is unremarkable. cxray is clear. WBC normal. Influenza B is positive. Patient informed of the diagnosis and discharged home to follow up with her family doctor Lab Data Labs: Lab Results 10/12/25 10/12/25 Range/Units 20:25 20:30 WBC 5.7 (4.0-11.0) 10^3/uL RBC 4.15 L (4.20-5.40) 10^6/uL Hgb 12.8 (12.0-16.0) g/dL Hct 39.1 (36.0-48.0) % MCV 94.2 (81.0-99.0) fL MCH 30.8 (26.7-34.0) pg MCHC 32.7 (29.9-35.2) g/dL RDW 12.4 (11.0-15.0) % Plt Count 211 (150-450) 10^3/uL MPV 10.5 (9.5-13.5) fL Neut % (Auto) 64.2 (43.0-75.0) % Lymph % (Auto) 27.5 (20.5-60.0) % [place] % (Auto) 7.7 (1.7-12.0) % Eos % (Auto) 0.2 L (0.9-7.0) % Baso % (Auto) 0.2 (0.2-2.0) % Neut # (Auto) 3.7 (1.4-6.5) 10^3/uL Lymph # (Auto) 1.6 (1.2-3.8) 10^3/uL [place] # (Auto) 0.4 (0.3-0.8) 10^3/uL Eos # (Auto) 0.0 (0.0-0.7) 10^3/uL Baso # (Auto) 0.0 (0.0-0.1) 10^3/uL Abs Immat Gran (auto) 0.01 (0.00-0.03) 10^3/uL Imm/Tot Granulo (auto) 0.2 (0.0-0.5) % Sodium 143 (136-145) mmol/L Potassium 4.1 (3.5-5.1) mmol/L Chloride 105 (98-107) mmol/L Carbon Dioxide 32.4 H (21.0-32.0) mmol/L Anion Gap 9.7 BUN 9.0 (7.0-18.0) mg/dL Creatinine 0.74 (0.55-1.02) mg/dL Est GFR ( Amer) >60 (>=60 mL/min/1.73m^2) Est GFR (Non-Af Amer) >60 (>=60 mL/min/1.73m^2) BUN/Creatinine Ratio 12.2 Glucose 134 H (74-106) mg/dL Calcium 8.8 (8.5-10.1) mg/dL Influenza Type A Ag Negative Influenza Type B Ag Positive A SARS-CoV-2 Ag (CV2AG) Negative (NEGATIVE) Discharge Plan Discharge Chief Complaint: Upper Respiratory Infection Clinical Impression: Influenza Patient Disposition: Home, Self-Care Prescriptions / Home Meds: No Action valacyclovir 500 mg tablet escitalopram oxalate 10 mg tablet Print Language: Greek Instructions: Influenza (ED) Referrals: Lauren Doll MD [Primary Care Provider, Family Practice] - 1 week
[2025-10-12 20:35] LABS: Hematocrit 39.1 % (36.0-48.0); Hemoglobin 12.8 g/dL (12.0-16.0); Immature Granulocytes Abs Auto 0.01 10^3/uL (0.00-0.03); Immature Granulocytes Pct Auto 0.2 % (0.0-0.5); Lymphocytes Absolute Auto 1.6 10^3/uL (1.2-3.8); Mean Corpuscular HGB Conc 32.7 g/dL (29.9-35.2); Mean Corpuscular Hemoglobin 30.8 pg (26.7-34.0); Mean Corpuscular Volume 94.2 fL (81.0-99.0); Platelet Count 211 10^3/uL (150-450); Red Blood Count 4.15 10^6/uL (4.20-5.40); White Blood Count 5.7 10^3/uL (4.0-11.0)
[2025-10-12 20:51] LABS: Anion Gap 9.7; Blood Urea Nitrogen 9.0 mg/dL (7.0-18.0); Calcium 8.8 mg/dL (8.5-10.1); Carbon Dioxide 32.4 mmol/L (21.0-32.0); Chloride 105 mmol/L (98-107); Estimated GFR (African America >60 (>=60 mL/min/1.73m^2); Estimated GFR (Non-African Ame >60 (>=60 mL/min/1.73m^2); Glucose 134 mg/dL (74-106); Potassium 4.1 mmol/L (3.5-5.1); Sodium 143 mmol/L (136-145)
[2025-10-12 20:55] LABS: SARS-CoV-2 Ag NEGATIVE (NEGATIVE)
--- OUTSIDE RECORDS SUMMARY | 2025-10-12 20:57 | XMS_ITS | Clinical Summary ---
Author Organization [facility] Address [address] [place] [address], [address] [place] [address] Care Team Providers Care Hydro Plant Site Manager Name Role Phone Unavailable Primary Care Provider Unavailabl e Social History Tobacco UseTypesPacks/DayYears UsedDateSmoking Tobacco: Never Assessed CommentsUnknownSex and Gender InformationValueDate RecordedSex Assigned at Not on fileLegal AubPbulvz44/13/2015 9:41 AM ESTGender IdentityNot on fileSexual OrientationNot on file Plan of Treatment Not on file
--- OUTSIDE RECORDS SUMMARY | 2025-10-12 20:57 | XMS_ITS | Clinical Summary ---
Author Organization [facility] Address [id number] [address] [place] [address] Care Team Providers Care Improvement Coordinator Name Role Phone Unavailable Primary Care Provider Unavailabl e Social History Tobacco UseTypesPacks/DayYears UsedDateSmoking Tobacco: Never AssessedChildcare AnswerDate GnvzsqguZkxlgduuuZrgypsd76/12/2019EmploymentAnswerDate Recorded WcgpvdeofpFlcpcrh92/12/2019CommentsUnknownSex and Gender Information ValueDate RecordedSex Assigned at BirthNot on fileLegal NbeHkmyxf48/19/2016 12:09 PM ESTGender IdentityNot on fileSexual OrientationNot on file Plan of Treatment Health MaintenanceDue DateLast DoneCommentsDepression Ubpuhoilk31/09/2010Tobacco Pfzjpmduv12/09/2010dult BMI Yyyjftviz57/09/2016DTaP,Tdap and Td Vaccines (1 - Tdap)2017Pap Smear2019Influenza Hnljrpp9306/20/2025 Medical Devices Not on file
--- OUTSIDE RECORDS SUMMARY | 2025-10-12 20:57 | XMS_ITS | Clinical Summary ---
Author Organization [facility] Address [address] [place] [address] Care Team Providers Care Oven Baker Name Role Phone Lauren Doll MD Primary Care Provider [phone] Allergies Active AllergyReactionsCriticalityNoted BnpvGrxkfpyfHrjkinpoayyQzmfJis78/24/2023 JvyxfazocrEcywz84/24/8552QftirlayhkcfddGmmroPrn04/13/2023 Medications MedicationSigDispense QuantityRefillsLast FilledStart DateEnd DateStatus etonogestrel-eluting (Nexplanon) 68 mg contraceptive implant 1 each by Subdermal route 1 (one) time.Active Encounters DateTypeDepartmentCare FcbrTdxruzymmee25/13/2025Refill [facility] [address] [phone] July Childs LPN STD exposurefrom Last 3 Months Family History Medical HistoryRelationNameCommentsNo Known ProblemsFatherNo Known Problems MotherCOPDOtherGrandmotherCoronary artery diseaseOtherGrandmotherHepatitisOther GrandmotherHypertensionOtherGrandmotherRelationNameStatusCommentsBrother1 Daughter1, healthyFatherDeceasedMotherAliveOtherGrandmotherSister1, healthy Social History Tobacco UseTypesPacks/DayYears UsedDateSmoking Tobacco: Every DayCigarettes Tobacco Cessation:Ready to Q uit: Yes; Counseling Given: Not Answered Alcohol UseStandard Drinks/WeekCommentsYes0 (1 standard drink = 0.6 oz pure alcohol)Caffeine intake: yes, sodaAUDIT-CAnswerDate RecordedQ1: How often do you have a drink containing alcohol?Monthly or less08/11/2023Q2: How many drinks containing alcohol do you have on a typical day when you are drinking?1 or 2 08/11/2023Q3: How often do you have six or more drinks on one occasion?Never 08/11/2023CommentsNoSex and Gender InformationValueDate RecordedSex Assigned at BirthNot on fileLegal DesUhdsbu44/15/2023 6:57 PM EDTGender Identity Oomuws5701/01/2023 6:57 PM EDTSexual OrientationChoose not to ulhuqhgy20/15/2023 6:57 PM EDT Last Filed Vital Signs Vital SignReadingTime TakenCommentsBlood Jiaplinu590/60006/30/2025 8:44 AM EDT Pulse--Temperature--Respiratory Rate--Oxygen Saturation--Inhaled Oxygen Concentration--Gjasvr34.3 kg (159 lb 6.4 oz)06/30/2025 8:44 AM SADKpfutt585.9 cm (5' 1 )12/12/2022 12:00 PM ESTBody Mass Index30.12012/12/2022 12:00 PM EST Plan of Treatment DateTypeDepartmentCare Team (Latest Contact Info)Daqgezfycxg06/14/2026 9:00 AM EDTProcedure Visit [facility] [address] [place] [address] Regina Wooten PA [address] [place], [facility] Insurance Care Teams Team MemberRelationshipSpecialtyStart DateEnd Date Lauren Doll MD [facility] [place] [phone] [facility] - [facility]05/01/23
== END 2025-10-12 22:09 | disposition home or self-care (01) ==
PROVIDERS: Emergency Provider Internal Medicine; PCP Family Medicine
DX: J10.1 Influenza due to other identified influenza virus with other respiratory manifestations (principal); F17.210 Nicotine dependence, cigarettes, uncomplicated
CPT/HCPCS: 36415; 71046; 80048; 85025; 87804; 87811; 99283; 99285